=== PATIENT | female | born 1950 | race Caucasian/White ===

== ENCOUNTER 2023-07-09 10:27 | Outpatient (OUT) | payer MEDICARE, SELFPAY ==
[2023-07-09 10:56] LABS: Basophils Percent Auto 0.9 % (0.2-2.0); Eosinophils Absolute Auto 0.1 10^3/uL (0.0-0.7); Eosinophils Percent Auto 2.2 % (0.9-7.0); Hematocrit 40.9 % (36.0-48.0); Hemoglobin 13.4 g/dL (12.0-16.0); Lymphocytes Percent Auto 30.2 % (20.5-60.0); Mean Corpuscular HGB Conc 32.8 g/dL (29.9-35.2); Mean Corpuscular Hemoglobin 28.8 pg (26.7-34.0); Mean Corpuscular Volume 87.8 fL (81.0-99.0); Monocytes Absolute Auto 0.4 10^3/uL (0.3-0.8); Monocytes Percent Auto 12.5 % (1.7-12.0); Neutrophils Absolute Auto 1.7 10^3/uL (1.4-6.5); Neutrophils Percent Auto 54.2 % (43.0-75.0); Platelet Count 234 10^3/uL (150-450); Red Blood Count 4.66 10^6/uL (4.20-5.40); Red Cell Distribution Width 13.9 % (11.0-15.0); White Blood Count 3.2 10^3/uL (4.0-11.0)
[2023-07-09 11:51] LABS: Chloride 105 mmol/L (98-107); Sodium 141 mmol/L (136-145)
[2023-07-09 11:52] LABS: Anion Gap 9.8; Aspartate Amino Transferase 16 U/L (15-37); BUN Creatinine Ratio 23.2; Bilirubin Direct 0.1 mg/dL (0.0-0.2); Bilirubin Total 0.3 mg/dL (0.2-1.0); Calcium 8.7 mg/dL (8.5-10.1); Carbon Dioxide 30.2 mmol/L (21.0-32.0); Estimated GFR (African America >60 (>=60); Estimated GFR (Non-African Ame >60 (>=60); Glucose 89 mg/dL (74-106)
[2023-07-09 11:53] LABS: Alanine Aminotransferase 28 U/L (14-59); Albumin Globulin Ratio 1.1; Albumin Level 3.8 g/dL (3.4-5.0); Alkaline Phosphatase 78 U/L (46-116); Cholesterol 193 mg/dL (<=200); Globulin 3.4 g/dL; Total Protein 7.2 g/dL (6.4-8.2); Triglycerides 53 mg/dL (<=150); VLDL CHOLESTEROL 10.6 mg/dL
[2023-07-09 11:54] LABS: Chol HDL Ratio 4.1; HDL Cholesterol 47 mg/dL (40-60)
== END 2023-07-09 10:28 | disposition home or self-care (01) ==
PROVIDERS: PCP Family Medicine; Visit Provider Family Medicine
DX: Z79.899 Other long term (current) drug therapy (principal); E78.5 Hyperlipidemia, unspecified
CPT/HCPCS: 36415; 80048; 80061; 80076; 85025

== ENCOUNTER 2023-09-13 09:55 | Outpatient (OUT) | payer MEDICARE, SELFPAY ==
--- NOTE | 2023-09-13 09:57 | MM_ITS ---
Patient: DANTE GONZALEZ Exam Date: 09/13/2023 : 1950 Gender:F Ordering : DR ABBEY ALCALA . Admission #: [id number] Family : Order #: [id number] CLICK HERE TO VIEW EXAM RADIOLOGY REPORT PROCEDURE: MM TOMOSYNTHESIS SCREENING BI COMPARISON: MG MAMM SCREEN 3D ZAYRA CAD, 09/07/2021. MG MAMM SCREEN 3D ZAYRA CAD, 09/10/2022. INDICATIONS: Screening Calculator Name NCI Breast Cancer Risk Assessment Tool 5 Year Breast Cancer Risk 1.80% Lifetime Breast Cancer Risk 4.90% Personal Breast Cancer No Personal Ovarian Cancer No Treatments None Family Cancers Mother with non hodgekins lymphoma cancer at age ~80. LOCATION: [facility] BREAST COMPOSITION: Heterogeneously dense,which may obscure small masses. FINDINGS: DIAGNOSTIC CATEGORY 1--NEGATIVE. NO CHANGE FROM COMPARISON ASSESSMENT. Scattered benign-appearing nodules are present. Scattered benign-appearing calcifications are present. Scattered benign-appearing lymph nodes are present. RIGHT BREAST: No significant suspicious finding. LEFT BREAST: No significant suspicious finding. RECOMMENDATIONS: ROUTINE MAMMOGRAM AND CLINICAL EVALUATION IN 12 MONTHS. PLEASE NOTE: A NORMAL MAMMOGRAM DOES NOT EXCLUDE THE POSSIBILITY OF BREAST CANCER. A CLINICALLY SUSPICIOUS PALPABLE LUMP SHOULD BE BIOPSIED. Dictated by: Nader Zendejas MD on 09/13/2023 at 13:23 Approved by: Nader Zendejas MD on 09/13/2023 at 13:24
== END 2023-09-13 09:56 | disposition home or self-care (01) ==
LOC: MAMMO 09:55
PROVIDERS: PCP Family Medicine; Visit Provider Family Medicine
DX: Z12.31 Encounter for screening mammogram for malignant neoplasm of breast (principal); Z80.7 Family history of other malignant neoplasms of lymphoid, hematopoietic and related tissues; Z80.9 Family history of malignant neoplasm, unspecified
CPT/HCPCS: 77063; 77067

== ENCOUNTER 2024-07-24 09:29 | Outpatient (OUT) | payer MEDICARE, SELFPAY ==
--- OUTSIDE RECORDS SUMMARY | 2024-07-21 08:45 | XMS_ITS | CCD ---
Author Organization [facility] Care Team Providers Care Concession Manager Name Role Phone CARI, DR ABBEY Baker Primary Care Unavailable NADERER, DR ABBEY Baker Admitting Unavailable NADERER, DR ABBEY Baker Attending Unavailable NADERER, DR ABBEY Baker Primary Care Unavailable TAMLYN ., ANDRES Admitting Unavailable TAMLYN ., ANDRES Attending Unavailable TAMLYN Nesha, ANDRES Consulting Unavailable INEZ STANLEY Consulting Unavailable RUSTY RICH Consulting Unavailable CARI, DR ABBEY Baker Attending Unavailable CARI, DR ABBEY Baker Primary Care Unavailable CARI, DR ABBEY Baker Admitting Unavailable YAYA, DR ALEXANDER Oneill Consulting Unavailable NADERER, DR ABBEY Baker Consulting Unavailable NADERER, DR ABBEY Baker Primary Care Unavailable PHILLIP, JUAN Admitting Unavailable PHILLIP, JUAN Attending Unavailable PHILLIP, JUAN Consulting Unavailable JEREMÍAS JOSEPH Consulting Unavailable CARI, ABBEY Attending Unavailable MYLENER, ABBEY Attending Unavailable Allergies Allergy Classification Reported Allergen(s) Allergy Type Date of Onset Reaction(s) Facility (1 source) Sulfamethoxazole / Trimethoprim Drug Allergy 3 [facility] Repository (1 source) Sulfonamides (Antibiotic) Drug allergy (disorder) 9 [facility] Repository Problems Active Problems Problem Classification Problem Date Documented Da te Episodic/Chronic Other aftercare (1 source) Other group home (current) drug therapy; Translations: [OTH PENITENTIARY CURRENT DRUG THERAPY] Onset: 03-25-2023 Episodic Other and unspecified benign neoplasm (1 source) Benign neoplasm of sigmoid colon; Translations: [BENIGN NEOPLASM OF SIGMOID COLON] Onset: 03-21-2023 Episodic Other gastrointestinal disorders (4 sources) Constipation, unspecified; Translations: [CONSTIPATION UNSPECIFIED] Onset: 03-24-2023 Episodic Other screening for suspected conditions (not mental disorders or infectious disease) (8 sources) Encounter for screening for malignant neoplasm of colon; Translations: [Encounter for screening mammogram for malignant neoplasm of breast] Onset: 09-10-2022 Episodic Past or Other Problems Problem Classification Problem Date Documented Date Episodic/Chronic Other injuries and conditions due to external causes (4 sources) Unspecified injury of muscle, fascia and tendon of the posterior muscle group at thigh level, right thigh, subsequent encounter; Translations: [UNS INJ MSC FASC POST THIGH RT SUB] Onset: 08-10-2022 Episodic Residual codes; unclassified (1 source) Family history of other malignant neoplasms of lymphoid, hematopoietic and related tissues; Translations: [FAM HX OTH MAL CAPO LYMPH HEMATPOETC] Onset: 09-13-2022 Episodic Results Test Name Value Interpretation Reference Range Facil ity XR ABD FLAT_UPon 03-24-2023 XR ABD FLAT_UP EXAM: XR ABD FLAT_UP HISTORY: Constipation COMPARISON: None. TECHNIQUE: Supine study on 2 films FINDINGS: Prominent stool is noted within the colon. No dilated small bowel loops. No abnormal calcifications. IMPRESSION: Apparent constipation. Electronically authenticated by: Liseth JOSEPH Date: 2023-03-24 00:41 Normal [facility] MAMM SCREEN 3D ZAYRA CADon 09-10-2022 MG MAMM SCREEN 3D ZAYRA CAD Patient: DANTE GONZALEZ Exam Date: 09/10/2022 : 1950 Gender:F Ordering : DR ABBEY ALCALA . Admission #: [id number] Family : Order #: [id number] CLICK HERE TO VIEW EXAM RADIOLOGY REPORT PROCEDURE: MAMMOGRAM SCREENING 3D BILATERAL CAD COMPARISON: MG MAMM SCREEN 3D ZAYRA CAD, 09/07/2021. MG MAMM SCREEN ZAYRA W CAD, 09/05/2020. INDICATIONS: Screening mammography Calculator Name NCI Breast Cancer Risk Assessment Tool 5 Year Breast Cancer Risk 1.70% Lifetime Breast Cancer Risk 5.10% Personal Breast Cancer No Personal Ovarian Cancer No Treatments None Family Cancers Mother with non hodgekins lymphoma cancer at age 80. LOCATION: [facility] BREAST COMPOSITION: Heterogeneously dense,which may obscure small masses. FINDINGS: DIAGNOSTIC CATEGORY 1--NEGATIVE. NO CHANGE FROM COMPARISON ASSESSMENT. Scattered benign-appearing calcifications are present. Scattered benign-appearing lymph nodes are present. RIGHT BREAST: No significant suspicious finding. LEFT BREAST: No significant suspicious finding. RECOMMENDATIONS: ROUTINE MAMMOGRAM AND CLINICAL EVALUATION IN 12 MONTHS. PLEASE NOTE: A NORMAL MAMMOGRAM DOES NOT EXCLUDE THE POSSIBILITY OF BREAST CANCER. A CLINICALLY SUSPICIOUS PALPABLE LUMP SHOULD BE BIOPSIED. Dictated by: Alexander Zendejas MD on 09/10/2022 at 10:16 Approved by: Alexander Zendejas MD on 09/10/2022 at 10:19 Normal [facility] Encounters Encounter Date Encounter Type Care Provider Facility Start: 07-15-2024 End: 07-15-2024 ambulatory ABBEY ALCALA Not Available Start: 02-03-2024 End: 02-03-2024 ambulatory ABBEY ALCALA Not Available Start: 03-24-2023 End: 03-24-[address] ABBEY ALCALA Facility:[facility] Start: 03-15-2023 End: 03-15-[address] ABBEY ALCALA Facility:[facility] Start: 09-10-2022 End: 09-11-[address] ABBEY ALCALA Facility:[facility] Start: 08-10-2022 End: 08-31-[address] ABBEY ALCALA Facility:[facility] Payers Date Payer Category Payer Medicare [id number] 1950 Unknown [id number] 2.16.84 [id number] 1950 Unknown [id number] 2.16.84 [id number] 1950 Unknown [id number] 2.16.84 [id number] 1950 Unknown [id number] 2.16.84 [id number] 1950 Unknown [id number] 2.16.84 [id number] 1950 Unknown [id number] 2.16.84 [id number] Summary Purpose Family History No Family History Records FoundNo Family History Records Found Advance Directives No Advanced Directives Records FoundNo Advanced Directives Records Found Additional Source Comments INFORMATION SOURCE (unrecogn ized section and content) DATE CREATED AUTHOR 03/25/2023 [facility] pital DATE CREATED AUTHOR AUTHOR'S MINO ATABDULAZIZ 07/16/2024 [facility] Special[facility] FOR RECORDS PERTAINING TO PATIENTS WHO ARE OR HAVE BEEN ENROLLED IN A CHEMICAL DEPENDENCY/SUBSTANCEABUSE PROGRAM, SOME INFORMATION MAY BE OMITTED. This clinical summary was aggregated from multiple sources. Caution should be exercised in using it in the provision of clinical care. This summary normalizes information from multiple sources, and as a consequence, information in this document may materially change the coding, format and clinical context of patient data. In addition, data may be omitted in some cases. CLINICAL DECISIONS SHOULD BE BASED ON THE PRIMARY CLINICAL RECORDS. [facility] [employer] provides no warranty or guarantee of the accuracy or completeness of information in this document.
--- OUTSIDE RECORDS SUMMARY | 2024-07-24 09:34 | XMS_ITS | CCD ---
Author Organization [facility] Care Team Providers Care Office Sweeper Name Role Phone CARI, DR ABBEY Baker Primary Care Unavailable NADERER, DR ABBEY Baker Admitting Unavailable NADERER, DR ABBEY Baker Attending Unavailable NADERER, DR ABBEY Baker Primary Care Unavailable TAMLYN ., ANDRES Admitting Unavailable TAMLYN ., ANDRES Attending Unavailable TAMLYN Nesha, ANDRES Consulting Unavailable INEZ STANLEY Consulting Unavailable RUSTY RCIH Consulting Unavailable CARI, DR ABBEY Baker Attending [...] Sulfamethoxazole / Trimethoprim Drug Allergy 3 [facility] Repository (1 source) Sulfonamides (Antibiotic) Drug allergy (disorder) 9 [facility] Repository Problems Active Problems Problem Classification Problem Date Documented Da te Episodic/Chronic Other aftercare (1 source) Other correction (current) drug therapy; Translations: [OTH DETENTION CURRENT DRUG THERAPY] Onset: 03-25-2023 Episodic Other [...] Liseth JOSEPH Date: 2023-03-24 00:41 Normal [facility] MAMM SCREEN 3D ZAYRA CADon 09-10-2022 MG MAMM SCREEN 3D ZAYRA CAD Patient: DANTE GONZALEZ Exam Date: 09/10/2022 : 1950 Gender:F Ordering : DR ABBEY ALCALA . Admission #: [id number] Family : Order #: [id number] CLICK HERE TO VIEW EXAM RADIOLOGY REPORT [...] lymphoma cancer at age 81. LOCATION: [facility] BREAST COMPOSITION: Heterogeneously dense,which may obscure small [...] Zendejas MD on 09/10/2022 at 10:19 Normal [facility] Encounters Encounter Date Encounter Type Care Provider [...] Facility:[facility] Payers Date Payer Category Payer Medicare [id number] 1950 Unknown [id number] 2.16.84 [id number] 1950 Unknown [id number] 2.16.84 [id number] 1950 Unknown [id number] 2.16.84 [id number] 1950 Unknown [id number] 2.16.84 [id number] 1950 Unknown [id number] 2.16.84 [id number] 1950 Unknown [id number] 2.16.84 [id number] Summary Purpose Family History No Family History Records FoundNo Family History Records Found Advance Directives No Advanced Directives Records FoundNo Advanced Directives Records Found Additional Source Comments INFORMATION SOURCE (unrecogn ized section and content) DATE CREATED AUTHOR 03/25/2023 [facility] pital DATE CREATED AUTHOR AUTHOR'S MINO ATABDULAZIZ 07/16/2024 [facility] dical Specialists [facility] FOR RECORDS PERTAINING TO PATIENTS WHO [...] BE BASED ON THE PRIMARY CLINICAL RECORDS. [facility] [employer] provides no warranty or guarantee of the accuracy or completeness of information in this document.
--- NOTE | 2024-07-24 09:38 | XR_ITS ---
[address] [address] Patient Name: DANTE GONZALEZ MRN: [id number] date: 1950 Sex: F Assigned Patient Location: [facility] Current Patient Location: Accession/Order Number: [id number] Exam Date: 07/24/2024 09:50 Report Date: 07/25/2024 06:18 At the request of: ABBEY ALCALA Procedure: XR DEXA axial skeleton EXAMINATION: XR DEXA axial skeleton HISTORY: OSTEOPENIA OF NECK AND RIGHT FEMUR M85.851 COMPARISON: DEXA bone densitometry 09/07/2021 TECHNIQUE: Dual-energy X-ray absorptiometry (DXA) was performed. FINDINGS: SPINE ANALYSIS: Average bone mineral density is 1.333 g/cm2. T-score (standard deviation relative to young adult mean): 1.3 . +1.8% change since prior study. HIP ANALYSIS: Lowest bone mineral density is within the left femoral neck, 0.853 g/cm2. T-score (standard deviation relative to young adult mean): -1.3 . -2.1% change since prior study. XR/XR DEXA axial skeleton IMPRESSION: World Health Organization Classification: Osteopenia - Moderate Fracture Risk FRAX: Cannot calculate. Pharmacologic treatment recommendations * No uniform recommendation applies to all patients. Management plans must be individualized. * Consider initiating pharmacologic treatment in postmenopausal women and men >= 50 years of age who have the following: Primary fracture prevention: * T-score <= - 2.5 at the femoral neck, total hip, lumbar spine, 33% radius (some uncertainty with existing data) by DXA. * Low bone mass (osteopenia: T-score between - 1.0 and - 2.5) at the femoral neck or total hip by DXA with a 10-year hip fracture risk >= 3% or a 10-year major osteoporosis-related fracture risk >= 20% (i.e., clinical vertebral, hip, forearm, or proximal humerus) based on the [place]-adapted FRAXregistered model. Secondary fracture prevention: * Fracture of the hip or vertebra regardless of BMD [4, 5]. * Fracture of proximal humerus, pelvis, or distal forearm in persons with low bone mass (osteopenia: T-score between - 1.0 and - 2.5). The decision to treat should be individualized in persons with a fracture of the proximal humerus, pelvis, or distal forearm who do not have osteopenia or low BMD [12, 13]. Becky MS, Roberto SL, Grayson KL, Denton EM, Sabrina KG, AJ, John ES. The clinician's guide to prevention and treatment of osteoporosis. Osteoporos Int. 2021;33(10):3595-6872. doi: 10.1007/c28495-739-74548-s. Epub 2021Mar 08. Erratum in: Osteoporos Int. 2021Jun 07;: PMID: [id number]; PMCID: [id number]. Electronically authenticated by: LISA ARCHER Date: 07/25/2024 06:18
== END 2024-07-24 09:30 | disposition home or self-care (01) ==
LOC: RAD 09:30
PROVIDERS: PCP Family Medicine; Visit Provider Family Medicine
DX: M85.851 Other specified disorders of bone density and structure, right thigh (principal)
CPT/HCPCS: 77080

== ENCOUNTER 2024-09-14 08:17 | Outpatient (OUT) | payer MEDICARE, SELFPAY ==
--- NOTE | 2024-09-14 08:22 | MM_ITS ---
Patient Name: DANTE GONZALEZ MR#: [id number] : 1950 Exam Date: 09/14/2024 Ordering Doctor: DR Pete Orantes . RADIOLOGY REPORT PROCEDURE: MM TOMOSYNTHESIS SCREENING BI COMPARISON: MM TOMOSYNTHESIS SCREENING BI, 09/13/2023. MG MAMM SCREEN 3D ZAYRA CAD, 09/10/2022. INDICATIONS: Screening Calculator Name NCI Breast Cancer Risk Assessment Tool 5 Year Breast Cancer Risk 1.80% Lifetime Breast Cancer Risk 4.60% Personal Breast Cancer No Personal Ovarian Cancer No Treatments None Family Cancers Mother with non hodgekins lymphoma cancer at age ~80. LOCATION: [facility] BREAST COMPOSITION: The breasts are heterogeneously dense,which may obscure small masses. FINDINGS: DIAGNOSTIC CATEGORY 2--BENIGN FINDING. NO CHANGE FROM COMPARISON. Scattered benign-appearing calcifications are present. Scattered benign-appearing lymph nodes are present. RIGHT BREAST: No significant suspicious finding. LEFT BREAST: No significant suspicious finding. RECOMMENDATIONS: ROUTINE MAMMOGRAM AND CLINICAL EVALUATION IN 12 MONTHS. PLEASE NOTE: A NORMAL MAMMOGRAM DOES NOT EXCLUDE THE POSSIBILITY OF BREAST CANCER. A CLINICALLY SUSPICIOUS PALPABLE LUMP SHOULD BE BIOPSIED. Dictated by: Nader Zendejas MD on 09/14/2024 at 11:20 Approved by: Nader Zendejas MD on 09/14/2024 at 11:22
== END 2024-09-14 08:18 | disposition home or self-care (01) ==
LOC: MAMMO 08:17
PROVIDERS: PCP Family Medicine; Visit Provider Family Medicine
DX: Z12.31 Encounter for screening mammogram for malignant neoplasm of breast (principal); Z80.7 Family history of other malignant neoplasms of lymphoid, hematopoietic and related tissues
CPT/HCPCS: 77063; 77067

== ENCOUNTER 2024-12-09 11:32 | Outpatient (OUT) | payer MEDICARE, SELFPAY ==
--- OUTSIDE RECORDS SUMMARY | 2024-12-09 11:37 | XMS_ITS | CCD ---
Author Organization [facility] Care Team Providers Care Apple Checker Name Role Phone DR PETE ALCALA Primary Care Unavailable CARI, DR PETE Baker Admitting Unavailable CARI, DR PETE Baker Attending Unavailable CARI, DR PETE Baker Primary Care Unavailable TAMANDRES WALKER Admitting Unavailable TAMLYN Nesha, ANDRES Attending Unavailable TAMFELIXN Nesha, ANDRES Consulting Unavailable INEZ STANLEY Consulting Unavailable RUSTY RICH Consulting Unavailable CARI, DR PETE Baker Attending Unavailable CARI, DR PETE Baker Primary Care Unavailable CARI, DR PETE Baker Admitting Unavailable YAYA, DR ALEXANDER Oneill Consulting Unavailable NADERER, DR PETE Baker Consulting Unavailable NADERER, DR PETE Baker Primary Care Unavailable JUAN FISHER Admitting Unavailable JUAN FISHER Attending Unavailable PHILLIP, JUAN Consulting Unavailable JEREMÍAS JOSEPH Consulting Unavailable Pete Alcala MD Primary Care Provider [phone] PETE ALCALA Attending Unavailable CARI, PETE Attending Unavailable CASE MENENDEZ Attending Unavailable CASE MENENDEZ Referring Unavailable CASE MENENDEZ Attending Unavailable CASE MENENDEZ Referring Unavailable CASE MENENDEZ Attending Unavailable CASE MENENDEZ Referring Unavailable PETE ALCALA Attending Unavailable Allergies Allergy Classification Reported Allergen(s) Allergy Type Date of Onset Reaction(s) Facility (1 source) Sulfamethoxazole / Trimethoprim Drug Allergy 3 [facility] Repository (1 source) Sulfonamides (Antibiotic) Drug allergy (disorder) 9 [facility] Repository (15 sources) Sulfamethoxazole / Trimethoprim Drug Allergy 4 [facility] Healthcare (15 sources) Sulfonamides (Antibiotic) Drug Allergy 3 Other [facility] Healthcare Medications Current Medications Medication Drug Class(es) Dates Sig (Normalized) Sig (Original) ALPRAZolam 0.25 mg oral tablet (15 sources) Benzodiazepine take 1 tablet by mouth three times daily as needed for anxiety ALPRAZolam (Xanax) 0.25 MG tablet Take 0.25 mg by mouth 3 (three) times a day as needed for anxiety Active ascorbic acid 1000 mg oral tablet (15 sources) Vitamin C take 1 tablet by mouth in the morning Ascorbic Acid (vitamin C) 1000 MG tablet Take 1,000 mg by mouth in the morning. Active calcitriol 0.64545 mg oral capsule (11 sources) Vitamin D3 Analog take 1 capsule by mouth once daily calcitriol (Rocaltrol) 0.25 MCG capsule Take 0.25 mcg by mouth Daily Active latanoprost 0.05 mg/ml ophthalmic solution (15 sources) Prostaglandin Analog Start: 3 take 1 drop(s) into the eye(s) once daily in the evening latanoprost (Xalatan) 0.005 % ophthalmic solution INSTILL 1 DROP INTO BOTH EYES EVERY EVENING DIRECTED 06/05/2023 Active methylPREDNISolone (9 sources) Corticosteroid Start: End: methylPREDNISolone (Medrol Dospak) 4 MG tablets Indications: Acute pain of right shoulder Follow schedule on package instructions 21 tablet 09/15/2024 11/19/2024 Discontinued Start: 09-15-2024 methylPREDNISo lone (Medrol Dospak) 4 MG tablets Indications: Acute pain of right shoulder Follow schedule on package instructions 21 tablet 09/15/2024 Active Start: 08-28-2024 End: 08-28-2024 methylPREDNISolone acetate ( DEPO-Medrol) injection 40 mg Start: 08-28-2024 End: 08-28-2024 40 mg, Intra-articular, Once PRN Procedure, Starting on Sat08/28/24 at 0931, For 1 dose Misc Natural Products (Glucosamine Chond Complex/MSM) tablet (15 sources) Misc Natural Pro ducts (Glucosamine Chond Complex/MSM) tablet Orally Active Multiple Vitamins-Minerals (MULTIVITAMIN WOMEN 50+ PO) (15 sources) Multiple Vitamins-Minerals (MULTIVITAMIN WOMEN 50+ PO) Take by mouth Active predniSONE 20 mg oral tablet (2 sources) Start: 08-07-2024 End: 08-16-2024 take 2 tablets by mouth once daily, then take 1 tablet by mouth once daily at mealtime predniSONE (Deltasone) 20 MG tablet Indications: Left leg pain Take 2 tablets (40 mg) by mouth Daily for 5 days, THEN 1 tablet (20 mg) Daily for 5 days. Take with food. 15 tablet 08/07/2024 08/16/2024 Active Problems Active Problems Problem Classification Problem Date Documented Da te Episodic/Chronic Anxiety disorders (2 sources) Anxiety; Translations: [Anxiety disorder, unspecified] Onset: 5 11-19-2024 Chronic Conduction disorders (17 sources) First degree atrioventricular block; Translations: [Atrioventricular block, first degree] Onset: 4 02-03-2024 Chronic Disorders of lipid metabolism (17 sources) Dyslipidemia; Translations: [Hyperlipidemia, unspecified] Onset: 4 02-03-2024 Chronic Joint disorders and dislocations; trauma-related (4 sources) Chondromalacia of left patella; Translations: [Chondromalacia patellae, left knee] 08-28-2024 Chronic Other aftercare (1 source) Other emt intermediate (current) drug therapy; Translations: [OTH ALF CURRENT DRUG THERAPY] Onset: 3 Episodic Other and unspecified benign neoplasm (1 source) Benign neoplasm of sigmoid colon; Translations: [BENIGN NEOPLASM OF SIGMOID COLON] Onset: 3 Episodic Other connective tissue disease (2 sources) Pain in right arm; Translations: [Pain in right arm] 09-14-2024 Episodic Other connective tissue disease (2 sources) Pain in left lower limb; Translations: [Pain in left leg] 08-06-2024 Episodic Other gastrointestinal disorders (4 sources) Constipation, unspecified; Translations: [CONSTIPATION UNSPECIFIED] Onset: 3 Episodic Other non-traumatic joint disorders (2 sources) Pain in left knee; Translations: [Pain in joint, lower leg] 08-28-2024 Episodic Other non-traumatic joint disorders (2 sources) Disorder of shoulder; Translations: [Other specified joint disorders, right shoulder] 09-15-2024 Episodic Other non-traumatic joint disorders (2 sources) Pain in right shoulder; Translations: [Pain in joint, shoulder region] 09-15-2024 Episodic Other screening for suspected conditions (not mental disorders or infectious disease) (8 sources) Encounter for screening for malignant neoplasm of colon; Translations: [Encounter for screening mammogram for malignant neoplasm of breast] Onset: 2 Episodic Residual codes; unclassified (6 sources) Amnesia; Translations: [Other amnesia] Onset: 5 11-19-2024 Episodic Spondylosis; intervertebral disc disorders; other back problems (17 sources) Degeneration of cervical intervertebral disc; Translations: [Other cervical disc degeneration, unspecified cervical region] Onset: 02-03-2024 Chronic Past or Other Problems Problem Classification Problem Date Documented Da te Episodic/Chronic Malaise and fatigue (16 sources) Fatigue; Translations: [Other fatigue] Onset: 07-15-2024 Resolved: 11-19-2024 07-15-2024 Episodic Miscellaneous mental health disorders (17 sources) Insomnia disorder related to another mental disorder; Translations: [Insomnia due to other mental disorder] Onset: 02-03-2024 Resolved: 11-19-2024 02-03-2024 Chronic Mood disorders (2 sources) Mood disorders Onset: 11-19-2024 11-19-2024 Other aftercare (12 sources) Long-term current use of drug therapy; Translations: [Other emt intermediate (current) drug therapy] Onset: 07-15-2024 07-15-2024 Episodic Other aftercare (4 sources) Patient encounter status; Translations: [Other detention (current) drug therapy] Onset: 07-15-2024 07-15-2024 Episodic Other bone disease and musculoskeletal deformities (17 sources) Osteopenia; Translations: [Other specified disorders of bone density and structure, right thigh] Onset: 02-03-2024 02-03-2024 Episodic Other injuries and conditions due to external causes (4 sources) Unspecified injury of muscle, fascia and tendon of the posterior muscle group at thigh level, right thigh, subsequent encounter; Translations: [UNS INJ MSC FASC POST THIGH RT SUB] Onset: 08-10-2022 Episodic Other upper respiratory disease (15 sources) Allergic rhinitis due to pollen; Translations: [Allergic rhinitis due to pollen] Onset: 02-03-2024 Resolved: 11-19-2024 02-03-2024 Chronic Residual codes; unclassified (1 source) Family history of other malignant neoplasms of lymphoid, hematopoietic and related tissues; Translations: [FAM HX OTH MAL CAPO LYMPH HEMATPOETC] Onset: 09-13-2022 Episodic Results Test Name Value Interpretation Reference Range Facility XR Shoulder - right 2 Viewso n 09-15-2024 Imaging Result: AP and Scapular Y right shoulder: No acute fracture or dislocation Visualized lung diaz unremarkable. Moderate degenerative changes AC joint shoulder Impression: Moderate AC joint arthritis with no acute bony process right shoulder [facility] Study observation (narrative) [facility] No Panel Informationon 08-28 JONATHAN Roche 08/28/2024 9:36 AM L Inj/Asp: L knee on 08/28/2024 9:31 AM Indications: pain Details: 22 G needle, anterolateral approach Medications: 40 mg methylPREDNISolone acetate 40 MG/ML Outcome: tolerated well, no immediate complications UTILIZING ASEPTIC TECHNIQUE PT GIVEN INJECTION IN LEFT KNEE, NEUROVASC INTACT S/P INJ, TOLERATED WELL Given by Student Keith GREWAL under my direct supervision. Procedure, treatment alternatives, risks and benefits explained, specific risks discussed. Consent was given by the patient. Patient was prepped and draped in the usual sterile fashion. [facility] X[facility] Knee - left 1 or 2 Viewso n 08-28-2024 Imaging Result: AP AND LATERAL STANDING LEFT KNEE: No acute fracture. Mild to moderate patellafemoral arthritis Narrowing medial joint line with subchondral scleroris.. No significant joint effusion or soft tissue findings Slight varus alignment Impression: Mild degenerative changes left knee [facility] Rad[facility] Study observation (narrative) [facility] XR ABD FLAT_UPon 03-24-2023 XR ABD FLAT_UP EXAM: XR ABD FLAT_UP HISTORY: Constipation COMPARISON: None. TECHNIQUE: Supine study on 2 films FINDINGS: Prominent stool is noted within the colon. No dilated small bowel loops. No abnormal calcifications. IMPRESSION: Apparent constipation. Electronically authenticated by: Liseth JOSEPH Date: 2023-03-24 00:41 Normal [facility] MG MAMM SCREEN 3D ZAYRA CADon 09-10-2022 MG MAMM SCREEN 3D ZAYRA CAD Patient: CHRISTIN CARRILLO Exam Date: 09/10/2022 : 1950 Gender:F Ordering : DR PETE ALCALA . Admission #: [id number] Family : Order #: [id number] CLICK HERE TO VIEW EXAM RADIOLOGY REPORT [...] lymphoma cancer at age 81. LOCATION: [facility] BREAST COMPOSITION: Heterogeneously dense,which may obscure small [...] Zendejas MD on 09/10/2022 at 10:19 Normal [facility] Vital Signs Date Time Vital Sign Value Performing Clinician Faci lity 11-19-2024 07:00-0500 Body mass index (BMI) [Ratio] 25.02 kg/m2 Pete Alcala MD Work Phone: [facility] 11-19-2024 07:00-0500 Body temperature 97 [degF] Pete Alcala MD Work Phone: [facility] 11-19-2024 07:00-0500 Body weight 75.75 kg Pete Alcala MD Work Phone: [facility] 11-19-2024 07:00-0500 Diastolic blood pressure 68 mm[Hg] Pete Alcala MD Work Phone: [facility] 11-19-2024 07:00-0500 Heart rate 74 /min Pete Alcala MD Work Phone: [facility] 11-19-2024 07:00-0500 SaO2% (BldA) [Mass fraction] 97 % Pete Alcala MD Work Phone: [facility] 11-19-2024 07:00-0500 Systolic blood pressure 118 mm[Hg] Pete Alcala MD Work Phone: [facility] 08-07-2024 10:55-0400 Body height 174 cm Case CASTILLO Work Phone: [facility] 08-07-2024 10:55-0400 Body mass index (BMI) [Ratio] 23.97 kg/m2 Case CASTILLO Work Phone: [facility] 08-07-2024 10:55-0400 Body weight 72.58 kg Case Menendez PA Work Phone: [facility] 07-15-2024 08:05-0400 Body height 172.7 cm Pete Alcala MD Work Phone: [facility] 07-15-2024 08:05-0400 Body mass index (BMI) [Ratio] 25.54 kg/m2 Pete Alcala MD Work Phone: [facility] 07-15-2024 08:05-0400 Body temperature 97.3 [degF] Pete Alcala MD Work Phone: [facility] 07-15-2024 08:05-0400 Body weight 76.2 kg Pete Alcala MD Work Phone: [facility] 07-15-2024 08:05-0400 Diastolic blood pressure 40 mm[Hg] Pete Alcala MD Work Phone: [facility] 07-15-2024 08:05-0400 Heart rate 75 /min Pete Alcala MD Work Phone: [facility] 07-15-2024 08:05-0400 Respiratory rate 22 /min Pete Alcala MD Work Phone: [facility] 07-15-2024 08:05-0400 SaO2% (BldA) [Mass fraction] 98 % Pete Alcala MD Work Phone: [facility] 07-15-2024 08:05-0400 Systolic blood pressure 120 mm[Hg] Pete Alcala MD Work Phone: [facility] Encounters Encounter Date Encounter Type Care Provider Facility Start: 11-19-2024 End: 11-19-2024 Bamboo flowsheet Pete Alcala MD Work Phone: [facility] Start: 11-19-2024 End: 11-19-2024 Bamboo flowsheet Pete Alcala MD Work Phone: [facility] Start: 11-19-2024 End: 11-19-2024 Office outpatient visit 15 minutes Pete Alcala MD Work Phone: [facility] Comment on above: Medicare annual well ness visit, subsequent (Primary Dx); Memory loss Start: 11-19-2024 End: 11-19-2024 Patient encounter procedure Pete Alclaa MD Work Phone: [facility] Start: 11-19-2024 End: 11-19-2024 ambulatory PETE ALCALA Not Available Start: 09-15-2024 End: 09-15-2024 Bamboo flowsheet Case CASTILLO Work Phone: [facility] Start: 09-15-2024 End: 09-15-2024 Bamboo flowsheet Case CASTILLO Work Phone: [facility] Start: 09-15-2024 End: 09-15-2024 Office outpatient visit 25 minutes Case CASTILLO Work Phone: [facility] Comment on above: Right arm pain (Prim rajni Dx); Impingement of right shoulder; Acute pain of right shoulder Start: 09-15-2024 End: 09-15-2024 ambulatory CASE MENENDEZ Not Available Start: 08-28-2024 End: 08-28-2024 Bamboo flowsheet Case CASTILLO Work Phone: [facility] Start: 08-28-2024 End: 08-28-2024 Bamboo flowsheet Case CASTILLO Work Phone: [facility] Start: 08-28-2024 End: 08-28-2024 Office outpatient visit 25 minutes Case CASTILLO Work Phone: [facility] Comment on above: Acute pain of left k nee (Primary Dx); Chondromalacia, patella, left Start: 08-28-2024 End: 08-28-2024 ambulatory CASE MENENDEZ Not Available Start: 08-07-2024 End: 08-07-2024 Bamboo flowsheet Case Menendez PA Work Phone: [facility] Start: 08-07-2024 End: 08-07-2024 Bamboo flowsheet Case Menendez PA Work Phone: [facility] Start: 08-07-2024 End: 08-07-2024 Office outpatient visit 25 minutes Case CASTILLO Work Phone: [facility] Comment on above: Left leg pain (Prima ry Dx) Start: 08-07-2024 End: 08-07-2024 ambulatory CASE MENENDEZ Not Available Start: 07-15-2024 End: 07-15-2024 Bamboo flowsheet Pete Alcala MD Work Phone: [facility] Start: 07-15-2024 End: 07-15-2024 Bamboo flowsheet Pete Alcala MD Work Phone: [facility] Start: 07-15-2024 End: 07-15-2024 Office outpatient visit 15 minutes Pete Alcala MD Work Phone: [facility] Comment on above: Insomnia related to another mental disorder (Primary Dx); First degree atrioventricular block; DDD (degenerative disc disease), cervical; Dyslipidemia (CMS/HCC); Encounter for long-term current use of medication; Other fatigue; Osteopenia of neck of right femur Start: 07-15-2024 End: 07-15-2024 ambulatory PETE ALCALA Not Available Start: 02-03-2024 End: 02-03-2024 ambulatory PETE ALCALA Not Available Start: 03-24-2023 End: 03-24-[address] PETE ALCALA Facility:[facility] Start: 03-15-2023 End: 03-15-[address] PETE ALCALA Facility:[facility] Start: 09-10-2022 End: 09-11-[address] PETE ALCALA Facility:[facility] Start: 08-10-2022 End: 08-31-[address] PETE ALCALA Facility:[facility] Procedures Date Procedure Procedure Detail Performing Clinician Start: 09-15-2024 Radex shoulder compl ete minimum 2 views Case CASTILLO Work Phone: Start: 09-14-2024 Mammography Case CASTILLO Work Phone: Start: 08-28-2024 Arthrocentesis aspir &/inj major jt/bursa w/o us Case CASTILLO Work Phone: Start: 08-28-2024 Radiologic examinati on knee 1/2 views Case CASTILLO Work Phone: Start: 09-13-2023 Mammography Pete mehta MD Work Phone: Start: 03-15-2023 Colonoscopy Pete mehta MD Work Phone: Plan of Treatment Date Care Activity Detail Author Start: 03-15-2033 Screening for malign ant neoplasm of colon [facility] Start: 09-14-2025 Screening for malign ant neoplasm of breast Mammogram [facility] Start: 05-20-2025 End: 05-20-2025 Patient encounter procedure 05/20/2025 10:00 AM EDT Office Visit [facility] [address] [place] [phone] Pete Alcala MD [address] [place] [phone] [facility] Start: 11-19-2024 End: 11-19-2024 Patient encounter procedure 11/19/2024 10:45 AM EST Office Visit [facility] [address] [place] [phone] Pete Alcala MD [address] [place] [phone] Arrived [facility] Comment on above: Arrived Start: 10-14-2024 End: 10-14-2024 Patient encounter procedure 10/14/2024 9:30 AM EST Office Visit [facility] [address] [place] [address] Pete Alcala MD [address] [place] [phone] [facility] Start: 09-15-2024 End: 09-15-2024 Patient encounter procedure 09/15/2024 1:15 PM EST Office Visit [facility] [address] [place] [phone] Case Menendez PA [address] [facility] [address] [place] [address] Right arm pain (Primary Dx) [facility] Comment on above: Right arm pain (Prim rajni Dx) Start: 09-13-2024 Screening for malign ant neoplasm of breast Mammogram [facility] Start: 08-28-2024 End: 08-28-2024 Patient encounter procedure [facility] Comment on above: Acute hip pain, left (Primary Dx) Start: 08-07-2024 End: 08-07-2024 Patient encounter procedure 08/07/2024 10:45 AM EDT Office Visit [facility] [address] [place] [address] Case Menendez PA [address] [facility] [address] [place] [address] Left leg pain (Primary Dx) [facility] Comment on above: Left leg pain (Prima ry Dx) Start: 07-15-2024 End: 07-15-2025 Basic metabolic 1998 panel - Serum or Plasma Basic metabolic panel Lab Routine Encounter for long-term current use of medication Expected: 07/15/2024 (Approximate), Expires: 07/15/2025 [facility] Work Phone: Comment on above: Expected: 07/15/2024 (Approximate), Expires: 07/15/2025 Start: 07-15-2024 End: 07-15-2025 CBC W Auto Differential panel - Blood CBC and differential Lab Routine Encounter for long-term current use of medication Expected: 07/15/2024 (Approximate), Expires: 07/15/2025 [facility] Comment on above: Expected: 07/15/2024 (Approximate), Expires: 07/15/2025 Start: 07-15-2024 End: 07-15-2025 DXA Skeletal system Views for bone density DEXA bone density Imaging Routine Osteopenia of neck of right femur Expected: 07/15/2024, Expires: 07/15/2025 [facility] Comment on above: Expected: 07/15/2024 , Expires: 07/15/2025 Start: 07-15-2024 End: 07-15-2025 Hepatic function 2000 panel - Serum or Plasma Hepatic function panel Lab Routine Encounter for long-term current use of medication Expected: 07/15/2024 (Approximate), Expires: 07/15/2025 [facility] Comment on above: Expected: 07/15/2024 (Approximate), Expires: 07/15/2025 Start: 07-15-2024 End: 07-15-2025 Lipid 1996 panel - Serum or Plasma Lipid panel Lab Routine Dyslipidemia (CMS/HCC) Expected: 07/15/2024 (Approximate), Expires: 07/15/2025 [facility] Comment on above: Expected: 07/15/2024 (Approximate), Expires: 07/15/2025 Start: 07-15-2024 End: 07-15-2025 Thyrotropin [Units/volume] in Serum or Plasma TSH Lab Routine Other fatigue Expected: 07/15/2024 (Approximate), Expires: 07/15/2025 [facility] Comment on above: Expected: 07/15/2024 (Approximate), Expires: 07/15/2025 Start: 07-15-2024 End: 07-15-2024 Patient encounter procedure 07/15/2024 8:00 AM EDT Office Visit [facility] [address] [place] [phone] Pete Alcala MD [address] [place] [phone] Arrived [facility] Comment on above: Arrived Start: 07-12-2024 Influenza vaccination Influenza Vacc ine (#1) [facility] Start: 03-15-2024 Medicare Annual Wellness (AWV) Medicare Annual Wellness (AWV) [facility] Start: 1950 Screening for malign ant neoplasm of colon [facility] XR Hip - left 3 Views XR hip lef t 2 or 3 views Imaging Routine Left leg pain 08/07/2024 11:00 AM EDT [facility] Work Phone: Immunizations Immunization Date Immunization Notes Care Provider Fa cility 06-26-2023 influenza virus vacc ine, unspecified formulation Pete Alcala MD Work Phone: [facility] Payers Date Payer Category Payer Medicare [id number] 1958 Medicare [id number] 1950 Unknown [id number] 2.16.84 [id number] 1950 Unknown [id number] 2.16.84 [id number] 1950 Unknown [id number] 2.16.84 [id number] 1950 Unknown [id number] 2.16.84 [id number] 1950 Unknown [id number] 2.16.84 [id number] 1950 Unknown [id number] 2.16.84 [id number] 1950 Unknown [id number] 2.16.84 0.1.654545.3.579.2.9 1950 Unknown [id number] 2.16.84 [id number] 1950 Unknown [id number] 2.16.84 [id number] 1950 Unknown [id number] 2.16.84 0.1.930427.3.579.2.9 1950 Unknown [id number] 2.16.84 0.1.545045.3.579.2.9 1950 Unknown [id number] 2.16.84 0.1.446742.3.579.2.9 1950 Unknown [id number] 2.16.84 [id number] Social History Date Type Detail Facility Start: 02-03-[address] [facility] Never smoked tobacco [facility] Start: 02-03-2024 Tobacco use and exposure Smokeless t obacco non-user [facility] Start: 08-07-2024 End: 11-19-2024 Alcoholic beverage intake Lifetime non-drinker (finding) [facility] Start: 08-07-2024 End: 11-19-2024 History of Social function [facility] Start: 08-07-2024 End: 11-19-2024 Tobacco use panel [facility] Start: 1950 Sex assigned at Female [facility] Start: 07-22-2023 Gender identity Identifies as female gender (finding) [facility] Start: 07-22-2023 Sexual orientation Heterosexual (fin ding) [facility] History of Present illness Narrative 11-19-2024 Pete Alcala MD - 11/19/2024 11:29 AM Nabil Alcala MD - 11/19/2024 11:29 AM Nabil Alcala MD - 11/19/2024 10:45 AM EST Note Date & Type Note Facility 11-19-2024 History of Presen t illness Narrative Associated Problem(s): Memory loss Recently with increased forgetfulness and mom had dementia. Refer to neurology for evaluation. Associated Problem(s): Medicare annual wellness visit, subsequent Due for labs. Discussed proper diet and regular aerobic exercise. Need aerobic exercise 5-6 days a week for 30 minutes at a time. Smaller portions and limit total calories. Colonoscopy every 10 years. Tetanus every 10 years. Advised not to smoke. Images from the original note were not included. Subjective Patient ID: Christin Carrillo is a 73 y.o. female who presents for No chief complaint on file.. Presents for medicare annual wellness visit. Weight unchanged over the past year. Active and goes to exercise class few days a week. Rides bike and walks. Tries to watch diet and eat healthy. Increased fruits and vegetables. Smaller portions and limits snacking. Tries to limit total daily calories. Due for labs. Concerned about memory. Notice increased forgetfulness and misplacing things. Not organized. 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 Recently had episode where drove from [place] to [place] and had hard time finding tenriism. At one point during performance was supposed to go down front for [place]omble performance but forgot to go down. Doesn't remember most of concert. Family and friends concerned. Patient worried about memory loss because mom had dementia. Review of Systems Respiratory: Negative for cough, shortness of breath and wheezing. Cardiovascular: Negative for chest pain and palpitations. Gastrointestinal: Negative for abdominal pain, diarrhea, nausea and vomiting. Genitourinary: Negative for dysuria. Objective Physical Exam Constitutional: General: She is not in acute distress. Appearance: Normal appearance. HENT: Head: Normocephalic. Right Ear: Tympanic membrane normal. Left Ear: Tympanic membrane normal. Eyes: Extraocular Movements: Extraocular movements intact. Pupils: Pupils are equal, round, and reactive to light. Cardiovascular: Rate and Rhythm: Normal rate and regular rhythm. Heart sounds: No murmur heard. No friction rub. No gallop. Pulmonary: Effort: Pulmonary effort is normal. Breath sounds: Normal breath sounds. No wheezing, rhonchi or rales. Abdominal: General: Bowel sounds are normal. There is no distension. Palpations: Abdomen is soft. Tenderness: There is no abdominal tenderness. There is no guarding or rebound. Musculoskeletal: General: No swelling or tenderness. Cervical back: Neck supple. Right lower leg: No edema. Left lower leg: No edema. Skin: Findings: No erythema or rash. Neurological: General: No focal deficit present. Mental Status: She is alert and oriented to person, place, and time. Cranial Nerves: No cranial nerve deficit. Motor: No weakness. Gait: Gait normal. Assessment/Plan Problem List Items Addressed This Visit Medicare annual wellness visit, subsequent - Primary Due for labs. Discussed proper diet and regular aerobic exercise. Need aerobic exercise 5-6 days a week for 30 minutes at a time. Smaller portions and limit total calories. Colonoscopy every 10 years. Tetanus every 10 years. Advised not to smoke. Memory loss Recently with increased forgetfulness and mom had dementia. Refer to neurology for evaluation. Relevant Orders Ambulatory referral to Neurology documented in this encounter [facility] History of Present illness Narrative 09-15-2024 JONATHAN Roche - 09/15/2024 1:15 PM EST Note Date & Type Note Facility 09-15-2024 History of Presen t illness Narrative Images from the original note were not included. HISTORY OF PRESENT ILLNESS: EST PT Christin Carrillo is an 73 y.o. @ female. EST PT WITH NEW C/O RT SHOULDER PAIN ~3WKS- NOTICED PAIN AFTER DOING SOME YARD WORK XRAY RT SHOULDER TODAY EPIC 09/15/24 C/O PAIN UPPER ARM- C/O ACHINESS- ENTIRE ARM CAN ACHE- DIFFICULTY PULLING UP PANTS- DENIES WEAKNESS-SOME DIFFICULTY REACHING BEHIND BACK-+HEAT-+IBUPROFEN ALLERGIES: Allergies Allergen Reactions Bactrim [Sulfamethoxazole-Trimethoprim] Myalgia, lightheaded Sulfa Antibiotics Other HOME MEDICATIONS: Current Outpatient Medications Medication Instructions ALPRAZolam (XANAX) 0.25 mg, Oral, 3 times daily PRN calcitriol (ROCALTROL) 0.25 mcg, Oral, Daily latanoprost (Xalatan) 0.005 % ophthalmic solution INSTILL 1 DROP INTO BOTH EYES EVERY EVENING DIRECTED methylPREDNISolone (Medrol Dospak) 4 MG tablets Follow schedule on package instructions Misc Natural Products (Glucosamine Chond Complex/MSM) tablet Orally Multiple Vitamins-Minerals (MULTIVITAMIN WOMEN 50+ PO) Oral vitamin C 1,000 mg, Oral, Daily PHYSICAL EXAM: Shoulder Musculoskeletal Exam Inspection Right Right shoulder inspection is normal. Ecchymosis: none Peripheral edema: none Atrophy: none Masses: none Palpation Right Crepitus: no crepitus Increased warmth: none Tenderness: present Anterior shoulder: mild AC joint: mild Inferior pole of scapula: none Bicipital groove: mild Proximal biceps: mild Lateral arm: mild Range of Motion Right Right shoulder range of motion is normal. Active ROM: pain. Passive ROM: pain. Right shoulder active abduction: + pain passing 90 degrees. Strength Right External rotation: 5/5. Internal rotation: 5/5. Abduction: 5/5. Biceps: 5/5. Triceps: 5/5. Neurovascular Right Radial pulse: normal and 2+ Capillary refill: <3 sec Axillary nerve sensory distribution: normal Scapula Right Right shoulder scapula is normal. Position: normal Winging: none Special Tests Right Rotator Cuff Signs Neer's test: positive Oneill test: positive Painful arc test: positive Biceps/cedric Signs Speed's test: negative General Constitutional: appears stated age Neurological: alert and oriented x3 Vitals: There is no height or weight on file to calculate BMI. Tobacco Use: Low Risk (09/15/2024) Patient History Smoking Tobacco Use: Never Smokeless Tobacco Use: Never Passive Exposure: Not on file Alcohol Use: Not on file IMAGING: XR shoulder 2+ views right Imaging Result: AP and Scapular Y right shoulder: No acute fracture or dislocation Visualized lung diaz unremarkable. Moderate degenerative changes AC joint shoulder Impression: Moderate AC joint arthritis with no acute bony process right shoulder Procedures Orders Placed This Encounter Procedures XR shoulder 2+ views right Order Specific Question: Reason for exam: Answer: PAIN ASSESSMENT: ICD-10-CM 1. Right arm pain M79.601 XR shoulder 2+ views right 2. Impingement of right shoulder M25.811 3. Acute pain of right shoulder M25.511 methylPREDNISolone (Medrol Dospak) 4 MG tablets PLAN: Xray discussed at bedside. Inferior spurring AC joint predisposed to impingement. Pt did a lot of trimming with pain following, but not during,, recommend ICE, MDP with risk and benefits discussed, follow up prn with activity modification, consider SA injection if symptoms persist. Pt thankful. Questions answered in laymen terms at the bedside. The diagnosis, home exercise plan and any ongoing restrictions/ recommendations reviewed. If unable to be reached in office, I recommend evaluation at nearest Emergency Room if any symptoms worsened or new symptoms develop for requiring urgent evaluation. documented in this encounter [facility] History of Present illness Narrative 08-28-2024 JONATHAN Roche - 08/28/2024 9:00 AM EDT Note Date & Type Note Facility 08-28-2024 History of Presen t illness Narrative Associated Order(s): L Inj/Asp: L knee Post-Procedure Diagnose(s): Chondromalacia, patella, left Images from the original note were not included. HISTORY OF PRESENT ILLNESS: EST PT Christin Carrillo is an 73 y.o. @ female. EST PT RECHECK LT HIP PAIN- S/P PREDNISONE 08/07/24; NOTES SOME RELIEF XRAY LT HIP EPIC 08/07/24 PREDNISONE 08/07/24 SYMPTOMS LESS SEVERE-NOTES INTERMITTENT DISCOMFORT LATERAL HIP - PT IS PLEASED WITH PROGRESS AND MORE CONCERNED WITH LT KNEE PAIN TODAY *LT KNEE* (EST PT) FLARE UP (L) KNEE PAIN - NO KNOWN INJURY - NO RECENT TX XRAY LT KNEE TODAY EPIC 08/28/24 XRAYS 08/28/21 IN [facility] S/P DEXA SCAN 09/07/21 @ [facility] - DX OSTEOPOROSIS CORTISONE INJ 09/15/21 S/P MDP 08/31/21 PREVIOUS (L) KNEE SCOPE [address] OROURKE PAIN MEDIAL KNEE- TENDER TO TOUCH- DENIES SWELLING- DENIES INSTABILITY- SOME STIFFNESS- SOME DIFFICULTY WITH STAIRS- +IBUPROFEN - ALLERGIES: Allergies Allergen Reactions Bactrim [Sulfamethoxazole-Trimethoprim] Myalgia, lightheaded Sulfa Antibiotics Other HOME MEDICATIONS: Current Outpatient Medications Medication Instructions ALPRAZolam (XANAX) 0.25 mg, Oral, 3 times daily PRN calcitriol (ROCALTROL) 0.25 mcg, Oral, Daily latanoprost (Xalatan) 0.005 % ophthalmic solution INSTILL 1 DROP INTO BOTH EYES EVERY EVENING DIRECTED [facility] [place] [facility] [place] (Glucosamine Chond Complex/MSM) tablet Orally Multiple Vitamins-Minerals (MULTIVITAMIN WOMEN 50+ PO) Oral vitamin C 1,000 mg, Oral, Daily PHYSICAL EXAM: Knee Musculoskeletal Exam Gait Gait is normal. Inspection Leg length disparity: no discrepancy Left Erythema: none Effusion: mild Edema: none Ecchymosis: none Deformity: none Alignment: normal Palpation Left Left knee palpation is unremarkable. Increased warmth: none Masses: none Tenderness: present Medial joint line: mild Patella: moderate Range of Motion Left Left knee range of motion is normal and full. Active extension: 0 Passive extension: 0 Active flexion: 125 Passive flexion: 130 Strength Left Left knee strength is normal. Extension: 5/5. Instability Left Instability signs: none - stable Varus stress grade: normal Valgus stress grade: normal Anterior drawer: normal Medial Chinmay test: negative Lateral Chinmay test: negative Neurovascular Left Left knee neurovascular exam is normal. Pulses - PT: normal Posterior tibial: 2+ Capillary refill: warm and well-perfused Special Signs Left Straight leg raise: normal Patellar apprehension: moderate General Constitutional: appears stated age Labored breathing: no Psychiatric: normal mood and affect Neurological: alert Skin: intact Lymphadenopathy: none Vitals: There is no height or weight on file to calculate BMI. Tobacco Use: Low Risk (08/28/2024) Patient History Smoking Tobacco Use: Never Smokeless Tobacco Use: Never Passive Exposure: Not on file Alcohol Use: Not on file IMAGING: L Inj/Asp: L knee on 08/28/2024 9:31 AM Indications: pain Details: 22 G needle, anterolateral approach Medications: 40 mg methylPREDNISolone acetate 40 MG/ML Outcome: tolerated well, no immediate complications UTILIZING ASEPTIC TECHNIQUE PT GIVEN INJECTION IN LEFT KNEE, NEUROVASC INTACT S/P INJ, TOLERATED WELL Given by Student Keith GREWAL under my direct supervision. Procedure, treatment alternatives, risks and benefits explained, specific risks discussed. Consent was given by the patient. Patient was prepped and draped in the usual sterile fashion. Orders Placed This Encounter Procedures L Inj/Asp This order was created via procedure documentation XR knee 1 or 2 views left Order Specific Question: Reason for exam: Answer: PAIN ASSESSMENT: ICD-10-CM 1. Acute pain of left knee M25.562 XR knee 1 or 2 views left 2. Chondromalacia, patella, left M22.42 XR knee 1 or 2 views left PLAN: Pain with steps, prolonged sitting. Discussed acitivity levels. Xray reviewed at bedside with mild medial joint line oa and patellafemoral arthritis.. pt agreeable. Risk and benefits of injection discussed, consider visco if needed.. pt thankful. Questions answered in laymen terms at the bedside. The diagnosis, home exercise plan and any ongoing restrictions/ recommendations reviewed. If unable to be reached in office, I recommend evaluation at nearest Emergency Room if any symptoms worsened or new symptoms develop for requiring urgent evaluation. documented in this encounter [facility] History of Present illness Narrative 08-07-2024 JONATHAN Roche - 08/07/2024 10:45 AM EDT Note Date & Type Note Facility 08-07-2024 History of Presen t illness Narrative Images from the original note were not included. NAME: Christin Carrillo : 1950 HISTORY OF PRESENT ILLNESS: NEW PT Christin Carrillo is an 73 y.o. @ female. EST PT WITH NEW C/O LT HIP PAIN ~2-3WKS- NO KNOWN INJURY XRAY LT HIP TODAY EPIC 08/07/24 C/O ACHINESS- DENIES SHARP PAIN- PAIN DOES RADIATE DOWN TO KNEE- PT STATES SYMPTOMS HAVE IMPROVED - DENIES N/T- DENIES PAIN WITH BIKING- SOME DIFFICULTY GOING FROM SITTING TO STANDING/STAIRS- +IBUPROFEN PRN PAST MEDICAL HISTORY: Past Medical History: Diagnosis Date AV block, 1st degree Chronic neck pain Dyslipidemia (CMS/HCC) Insomnia due to mental disorder Osteopenia of neck of right femur Palpitations Dr. Juju Sheppard Post-menopausal Seasonal allergic rhinitis due to pollen PAST SURGICAL HISTORY: Past Surgical History: Procedure Laterality Date ANKLE SURGERY Left DENTAL IMPLANT 2021 DENTAL SURGERY NE KNEE SCOPE,DIAGNOSTIC Left 2014 Dr. Orourke TRIGGER FINGER RELEASE 05/2011 TRIGGER FINGER RELEASE Right 2014 Dr. Orourke SOCIAL HISTORY: Social History Occupational History Not on file Tobacco Use Smoking status: Never Smokeless tobacco: Never Substance and Sexual Activity Alcohol use: Never Drug use: Not on file Sexual activity: Not on file ALLERGIES: Allergies Allergen Reactions Bactrim [Sulfamethoxazole-Trimethoprim] Myalgia, lightheaded Sulfa Antibiotics Other HOME MEDICATIONS: Current Outpatient Medications Medication Instructions ALPRAZolam (XANAX) 0.25 mg, Oral, 3 times daily PRN calcitriol (ROCALTROL) 0.25 mcg, Oral, Daily latanoprost (Xalatan) 0.005 % ophthalmic solution INSTILL 1 DROP INTO BOTH EYES EVERY EVENING DIRECTED [facility] [place] (Glucosamine Chond Complex/MSM) tablet Orally Multiple Vitamins-Minerals (MULTIVITAMIN WOMEN 50+ PO) Oral predniSONE (Deltasone) 20 MG tablet Take 2 tablets (40 mg) by mouth Daily for 5 days, THEN 1 tablet (20 mg) Daily for 5 days. Take with food. vitamin C 1,000 mg, Oral, Daily REVIEW OF SYSTEMS: Review of Systems Vitals: Body mass index is 23.97 kg/m . Tobacco Use: Low Risk (08/07/2024) Patient History Smoking Tobacco Use: Never Smokeless Tobacco Use: Never Passive Exposure: Not on file Alcohol Use: Not on file PHYSICAL EXAM: Hip Musculoskeletal Exam Gait Gait is normal. Inspection Leg length disparity: no discrepancy Left Erythema: none Ecchymosis: none Edema: none Deformity: none Palpation Left Left hip palpation is normal. Increased warmth: none Tenderness: none Range of Motion Left Left hip range of motion is within functional limits. Active ROM: normal. Passive ROM: normal. Strength Left Left hip strength is normal. Extension: 5/5. Flexion: 5/5. Internal rotation: 5/5. External rotation: 5/5. Adduction: 5/5. Abduction: 5/5. Neurovascular Left Left hip neurovascular exam is normal. Pulses - PT: normal Posterior tibial: 2+ General Constitutional: appears stated age Labored breathing: no Psychiatric: normal mood and affect Neurological: alert and oriented x3 Skin: intact Lymphadenopathy: none IMAGING: Procedures Orders Placed This Encounter Procedures XR hip left 2 or 3 views Order Specific Question: Reason for exam: Answer: PAIN ASSESSMENT: ICD-10-CM 1. Left leg pain M79.605 XR hip left 2 or 3 views predniSONE (Deltasone) 20 MG tablet PLAN: suspect Lumbar radiculopathy L5, rx prednisone taper sent. Will start if symptoms persist. Pt notes aching pain relief with sitting. Benign hip exam. Recheck in 3 wks.. consider eval of back if unchanged. Questions answered in laymen terms at the bedside. The diagnosis, home exercise plan and any ongoing restrictions/ recommendations reviewed. If unable to be reached in office, I recommend evaluation at nearest Emergency Room if any symptoms worsened or new symptoms develop for requiring urgent evaluation. documented in this encounter [facility] History of Present illness Narrative 07-15-2024 Pete Alcala MD - 07/15/2024 8:41 AM EDJustin Alcala MD - 07/15/2024 8:41 AM Max Alcala MD - 07/15/2024 8:41 AM Max Alcala MD - 07/15/2024 8:00 AM EDT Note Date & Type Note Facility 07-15-2024 History of Presen t illness Narrative Associated Problem(s): Insomnia related to another mental disorder Sleeping well with medication and use PRN. Associated Problem(s): First degree atrioventricular block No palpitations and monitor. Associated Problem(s): DDD (degenerative disc disease), cervical Occasional pain but mild and use OTC PRN. Images from the original note were not included. Subjective Patient ID: Christin Carrillo is a 73 y.o. female who presents for Follow-up (6m) and Anxiety. Follow up heart block, allergies, neck pain, and insomnia. Doing well at today's visit. No palpitations or skipping beats. Not lightheaded or dizzy. No heart racing. Sleeping well. Typically able to fall asleep and stay asleep. Wakes up rested in am. Some nights notice thought racing and feels wound up when going to bed. Uses xanax few times a month and helps sleep when needed. Remains active and exercises several days a week. Neck pain stable. Mild stiffness in base neck and top shoulders. Uses OTC PRN and helps when needed. Anxiety Patient reports no chest pain, nausea, palpitations or shortness of breath. Review of Systems Respiratory: Negative for cough, shortness of breath and wheezing. Cardiovascular: Negative for chest pain and palpitations. Gastrointestinal: Negative for abdominal pain, diarrhea, nausea and vomiting. Genitourinary: Negative for dysuria. Objective Physical Exam Constitutional: General: She is not in acute distress. Appearance: Normal appearance. HENT: Head: Normocephalic. Right Ear: Tympanic membrane normal. Left Ear: Tympanic membrane normal. Eyes: Extraocular Movements: Extraocular movements intact. Pupils: Pupils are equal, round, and reactive to light. Cardiovascular: Rate and Rhythm: Normal rate and regular rhythm. Heart sounds: No murmur heard. No friction rub. No gallop. Pulmonary: Effort: Pulmonary effort is normal. Breath sounds: Normal breath sounds. No wheezing, rhonchi or rales. Abdominal: General: Bowel sounds are normal. There is no distension. Palpations: Abdomen is soft. Tenderness: There is no abdominal tenderness. There is no guarding or rebound. Musculoskeletal: Cervical back: Neck supple. Right lower leg: No edema. Left lower leg: No edema. Neurological: Mental Status: She is alert. Assessment/Plan Problem List Items Addressed This Visit First degree atrioventricular block No palpitations and monitor. DDD (degenerative disc disease), cervical Occasional pain but mild and use OTC PRN. Dyslipidemia (CMS/HCC) Relevant Orders Lipid panel Insomnia related to another mental disorder - Primary Sleeping well with medication and use PRN. Osteopenia of neck of right femur Relevant Orders DEXA bone density Encounter for long-term current use of medication Relevant Orders Basic metabolic panel CBC and differential Hepatic function panel Other fatigue Relevant Orders TSH documented in this encounter [facility] Evaluation note Note Date & Type Note Facility Evaluation note Diagnosis First degree atrioventricular block- Primary Seasonal allergic rhinitis due to pollen Insomnia related to another mental disorder Unspecified nonpsychotic mental disorder DDD (degenerative disc disease), cervical Degeneration of cervical intervertebral disc Insomnia related to another mental disorder- Primary Unspecified nonpsychotic mental disorder First degree atrioventricular block DDD (degenerative disc disease), cervical Degeneration of cervical intervertebral disc Dyslipidemia (CMS/HCC) Other and unspecified hyperlipidemia Encounter for long-term current use of medication Other fatigue Osteopenia of neck of right femur Acute pain of left knee- Primary Chondromalacia, patella, left documented in this encounter [facility] Evaluation note Note Date & Type Note Facility Evaluation note Diagnosis First degree atrioventricular block- Primary Seasonal allergic rhinitis due to pollen Insomnia related to another mental disorder Unspecified nonpsychotic mental disorder DDD (degenerative disc disease), cervical Degeneration of cervical intervertebral disc Insomnia related to another mental disorder- Primary Unspecified nonpsychotic mental disorder First degree atrioventricular block DDD (degenerative disc disease), cervical Degeneration of cervical intervertebral disc Dyslipidemia (CMS/HCC) Other and unspecified hyperlipidemia Encounter for long-term current use of medication Other fatigue Osteopenia of neck of right femur Right arm pain- Primary Pain in soft tissues of limb Impingement of right shoulder Acute pain of right shoulder documented in this encounter [facility] Evaluation note Note Date & Type Note Facility Evaluation note Diagnosis Insomnia related to another mental disorder- Primary Unspecified nonpsychotic mental disorder First degree atrioventricular block DDD (degenerative disc disease), cervical Degeneration of cervical intervertebral disc Dyslipidemia (CMS/HCC) Other and unspecified hyperlipidemia Encounter for long-term current use of medication Other fatigue Osteopenia of neck of right femur documented in this encounter [facility] Evaluation note Note Date & Type Note Facility Evaluation note Diagnosis Left leg pain- Primary Pain in soft tissues of limb documented in this encounter [facility] Evaluation note Note Date & Type Note Facility Evaluation note Diagnosis First degree atrioventricular block- Primary Seasonal allergic rhinitis due to pollen Insomnia related to another mental disorder Unspecified nonpsychotic mental disorder DDD (degenerative disc disease), cervical Degeneration of cervical intervertebral disc Insomnia related to another mental disorder- Primary Unspecified nonpsychotic mental disorder First degree atrioventricular block DDD (degenerative disc disease), cervical Degeneration of cervical intervertebral disc Dyslipidemia (CMS/HCC) Other and unspecified hyperlipidemia Encounter for long-term current use of medication Other fatigue Osteopenia of neck of right femur Medicare annual wellness visit, subsequent- Primary Memory loss documented in this encounter [facility] Summary Purpose Family History No Family History Records FoundNo Family History Records Found Advance Directives No Advanced Directives Records FoundNo Advanced Directives Records Found Additional Source Comments INFORMATION SOURCE (unrecogn ized section and content) DATE CREATED AUTHOR 03/25/2023 [facility] DATE CREATED AUTHOR AUTHOR'S ORGANIZ ATION 11/24/2024 [facility] Care Teams (unrecognized sec tion and content) Apple Checker Relationship Specialty Start Date End Date Pete Alcala MD [address] [place] [address] PCP - General Family Medicine 12/17/23 Apple Checker Relationship Specialty Start Date End Date Pete Alcala MD [address] [place] [address] PCP - General Family Medicine 12/17/23 Apple Checker Relationship Specialty Start Date End Date Pete Alcala MD [address] [place] [address] PCP - General Family Medicine 12/17/23 Apple Checker Relationship Specialty Start Date End Date Pete Alcala MD [address] [place] [id number] PCP - General Family Medicine 12/17/23 Apple Checker Relationship Specialty Start Date End Date Pete Alcala MD [address] [place] [address] PCP - General Family Medicine 12/17/23 Apple Checker Relationship Specialty Start Date End Date Pete Alcala MD [address] [place] [address] PCP - General Family Medicine 12/17/23 Apple Checker Relationship Specialty Start Date End Date Pete Alcala MD [address] [place] [id number] PCP - General Family Medicine 12/17/23 Apple Checker Relationship Specialty Start Date End Date Pete Alcala MD [address] [place] [address] PCP - General Family Medicine 12/17/23 Reason for Visit (unrecogniz ed section and content) Reason Comments Pain Reason Comments Pain Reason Comments Follow-up 6m Anxiety FOR RECORDS PERTAINING TO PATIENTS WHO ARE [...] BE BASED ON THE PRIMARY CLINICAL RECORDS. [facility]. provides no warranty or guarantee of the accuracy or completeness of information in this document.
[2024-12-09 11:52] LABS: Basophils Percent Auto 0.9 % (0.2-2.0); Eosinophils Absolute Auto 0.1 10^3/uL (0.0-0.7); Eosinophils Percent Auto 2.4 % (0.9-7.0); Hematocrit 42.5 % (36.0-48.0); Hemoglobin 13.9 g/dL (12.0-16.0); Immature Granulocytes Abs Auto 0.02 10^3/uL (0.00-0.03); Immature Granulocytes Pct Auto 0.6 % (0.0-0.5); Lymphocytes Percent Auto 30.2 % (20.5-60.0); Mean Corpuscular HGB Conc 32.7 g/dL (29.9-35.2); Mean Corpuscular Hemoglobin 29.1 pg (26.7-34.0); Mean Corpuscular Volume 89.1 fL (81.0-99.0); Mean Platelet Volume 8.9 fL (9.5-13.5); Monocytes Absolute Auto 0.4 10^3/uL (0.3-0.8); Monocytes Percent Auto 11.4 % (1.7-12.0); Neutrophils Absolute Auto 1.8 10^3/uL (1.4-6.5); Neutrophils Percent Auto 54.5 % (43.0-75.0); Platelet Count 252 10^3/uL (150-450); Red Blood Count 4.77 10^6/uL (4.20-5.40); Red Cell Distribution Width 14.2 % (11.0-15.0); White Blood Count 3.3 10^3/uL (4.0-11.0)
[2024-12-09 12:29] LABS: Alanine Aminotransferase 31 U/L (14-59); Albumin Globulin Ratio 1.2; Albumin Level 3.8 g/dL (3.4-5.0); Alkaline Phosphatase 78 U/L (46-116); Anion Gap 9.1; Aspartate Amino Transferase 25 U/L (15-37); BUN Creatinine Ratio 24.2; Bilirubin Direct 0.1 mg/dL (0.0-0.2); Bilirubin Total 0.5 mg/dL (0.2-1.0); Carbon Dioxide 34.3 mmol/L (21.0-32.0); Chloride 105 mmol/L (98-107); Chol HDL Ratio 4.4; Cholesterol 229 mg/dL (<=200); Estimated GFR (African America >60 (>=60 mL/min/1.73m^2); Estimated GFR (Non-African Ame 58 (>=60 mL/min/1.73m^2); Globulin 3.1 g/dL; Glucose 98 mg/dL (74-106); HDL Cholesterol 52 mg/dL (40-60); Potassium 4.4 mmol/L (3.5-5.1); Sodium 144 mmol/L (136-145); Thyroid Stimulating Hormone 2.306 uIU/mL (0.358-3.740); Total Protein 6.9 g/dL (6.4-8.2); Triglycerides 167 mg/dL (<=150); VLDL CHOLESTEROL 33.4 mg/dL
== END 2024-12-09 11:33 | disposition home or self-care (01) ==
PROVIDERS: PCP Family Medicine; Visit Provider Family Medicine
DX: E78.5 Hyperlipidemia, unspecified (principal); R53.83 Other fatigue; Z79.899 Other long term (current) drug therapy
CPT/HCPCS: 36415; 80048; 80061; 80076; 84443; 85025

== ENCOUNTER 2025-03-01 16:22 | Outpatient (OUT) | payer MEDICARE, SELFPAY ==
--- OUTSIDE RECORDS SUMMARY | 2025-03-01 16:48 | XMS_ITS | CCD ---
Author Organization [facility] Care Team Providers Care Family Practice Physician Name Role Phone DR PETE ALCALA Primary Care Unavailable CARI, DR PETE Baker Admitting Unavailable RICHARDEREPawel, DR PETE Baker Attending Unavailable CARI, DR PETE Baker Primary Care Unavailable TAMLYN Nesha, NADRES Admitting Unavailable TAMLYN ., ANDRES Attending Unavailable TAMLYN Nesha, ANDRES Consulting Unavailable INEZ STANLEY Consulting Unavailable RUSTY RICH Consulting Unavailable CARI, DR PETE Baker Attending Unavailable CARI, DR PETE Baker Primary Care Unavailable CARI, DR PETE Baker Admitting Unavailable YAYA, DR ALEXANDER Oneill Consulting Unavailable NADERER, DR PETE Baker Consulting Unavailable NADEREPawel, DR PETE Baker Primary Care Unavailable JUAN FISHER Admitting Unavailable JUAN FISHER Attending Unavailable PHILLIP, JUAN Consulting Unavailable JEREMÍAS JOSEPH Consulting Unavailable Pete Alcala MD Primary Care Provider Pete Alcala MD Unavailable Sally Pinzon DO Unavailable PETE ALCALA Attending Unavailable CASE MENENDEZ Attending Unavailable CASE MENENDEZ Referring Unavailable CASE MENENDEZ Attending Unavailable CASE MENENDEZ Referring Unavailable CASE MENENDEZ Attending Unavailable CASE MENENDEZ Referring Unavailable PETE ALCALA Attending Unavailable CARI, PETE Attending Unavailable SALLY PINZON Attending Unavailable PETE ALCALA Referring Unavailable SALLY PINZON Referring Unavailable RENAN DENNIS Attending Unavailable SALLY PINZON Referring Unavailable Allergies Allergy Classification Reported Allergen(s) Allergy Type Date of Onset Reaction(s) Facility (1 source) Sulfamethoxazole / Trimethoprim Drug Allergy 3 [facility] (1 source) Sulfonamides (Antibiotic) Drug allergy (disorder) 9 [facility] (20 sources) Sulfamethoxazole / Trimethoprim Drug Allergy 4 [facility] Healthcare (20 sources) Sulfonamides (Antibiotic) Drug Allergy 3 Other [facility] Medications Current Medications Medication Drug Class(es) Dates Sig (Normalized) Sig (Original) ALPRAZolam 0.25 mg oral tablet (20 sources) Benzodiazepine Start: 12-23-2024 End: 01-02-2025 take 1 tablet by mouth three times daily as needed for anxiety ALPRAZolam (Xanax) 0.25 MG tablet Indications: Anxiety Take 1 tablet (0.25 mg) by mouth 3 (three) times a day as needed for anxiety for up to 10 days 30 tablet 1 12/23/2024 Active ascorbic acid 1000 mg oral tablet (20 sources) Vitamin C take 1 tablet by mouth in the morning Ascorbic Acid (vitamin C) 1000 MG tablet Take 1,000 mg by mouth in the morning. Active calcitriol 0.62563 mg oral capsule (19 sources) Vitamin D3 Analog take 1 capsule by mouth once daily calcitriol (Rocaltrol) 0.25 MCG capsule Take 0.25 mcg by mouth Daily Active ferrous sulfate 325 mg delayed release oral tablet (3 sources) take 1 tablet by mouth at mealtime ferrous sulfate 325 (65 Fe) MG EC tablet Indications: Mild cognitive impairment Take 325 mg by mouth in the morning. Take with meals. Do not crush, chew, or split.. Active latanoprost 0.05 mg/ml ophthalmic solution (20 sources) Prostaglandin Analog Start: 12-21-2024 Latanoprost 0.005 % drops Active DROPS OPHTHALMIC December 21, 2024 12:00am Start: 06-05-2023 take 1 drop(s) into the eye(s) once daily in the evening latanoprost (Xalatan) 0.005 % ophthalmic solution INSTILL 1 DROP INTO BOTH EYES EVERY EVENING DIRECTED 06/05/2023 Active methylPREDNISolone (9 sources) Corticosteroid Start: 09-15-2024 End: 11-19-2024 methylPREDNISolone (Medrol Dospak) 4 MG tablets Indications: [...] Misc Natural Products (Glucosamine Chond Complex/MSM) tablet (20 sources) Misc Natural Pro ducts (Glucosamine Chond Complex/MSM) tablet Orally Active Multiple Vitamins-Minerals (MULTIVITAMIN WOMEN 50+ PO) (20 sources) Multiple Vitamins-Minerals (MULTIVITAMIN WOMEN 50+ PO) [...] Date Documented Da te Episodic/Chronic Anxiety disorders (13 sources) Anxiety; Translations: [Anxiety disorder, unspecified] Onset: 5 11-19-2024 Chronic Conduction disorders (20 sources) First degree atrioventricular block; Translations: [Atrioventricular block, first degree] Onset: 4 02-03-2024 Chronic Disorders of lipid metabolism (20 sources) Dyslipidemia; Translations: [Hyperlipidemia, unspecified] Onset: 4 02-03-2024 Chronic Immunizations and screening for infectious disease (1 source) Contact with or exposure to other viral diseases; Translations: [Contact with and (suspected) exposure to covid-19] 12-21-2024 Episodic Influenza (9 sources) Influenza due to Influenza A virus; Translations: [Influenza due to other identified influenza virus with other respiratory manifestations] Onset: 5 12-21-2024 Episodic Joint disorders and dislocations; trauma-related (4 sources) Chondromalacia of left patella; Translations: [Chondromalacia patellae, left knee] 08-28-2024 Chronic Other aftercare (1 source) Other correction (current) drug therapy; 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] Onset: 3 Episodic Other [...] Translations: [CONSTIPATION UNSPECIFIED] Onset: 3 Episodic Other hereditary and degenerative nervous system conditions (2 sources) Impaired cognition; Translations: [Mild cognitive impairment, so stated] 02-16-2025 Chronic Other nervous system disorders (2 sources) Disturbance of attention; Translations: [Attention and concentration deficit] 02-16-2025 Chronic Other non-traumatic joint disorders (2 sources) Pain [...] breast] Onset: 2 Episodic Residual codes; unclassified (14 sources) Amnesia; Translations: [Other amnesia] Onset: 5 11-19-2024 Episodic Residual codes; unclassified (2 sources) Family history of dementia; Translations: [Family history of other mental and behavioral disorders] 02-16-2025 Episodic Spondylosis; intervertebral disc disorders; other back problems (20 sources) Degeneration of cervical intervertebral disc; Translations: [Other cervical disc degeneration, unspecified cervical region] Onset: 4 02-03-2024 Chronic Past or Other Problems Problem Classification Problem Date Documented Da te Episodic/Chronic Malaise and fatigue (20 sources) Fatigue; Translations: [Other fatigue] Onset: 07-15-2024 Resolved: 11-19-2024 07-15-2024 Episodic Miscellaneous mental health disorders (20 sources) Insomnia disorder related to another mental disorder; Translations: [Insomnia due to other mental disorder] Onset: 02-03-2024 Resolved: 11-19-2024 02-03-2024 Chronic Mood disorders (10 sources) Mood disorders Onset: 11-19-2024 11-19-2024 Other aftercare (20 sources) Long-term current use of drug therapy; Translations: [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] Onset: 07-15-2024 07-15-2024 Episodic Other aftercare (4 sources) Patient encounter status; Translations: [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] Onset: 07-15-2024 07-15-2024 Episodic Other bone disease and musculoskeletal deformities (20 sources) Osteopenia; Translations: [Other specified disorders of bone density and structure, right thigh] Onset: 02-03-2024 02-03-2024 Episodic Other injuries and conditions due to external causes (4 sources) Unspecified injury of muscle, fascia and tendon of the posterior muscle group at thigh level, right thigh, subsequent encounter; Translations: [UNS INJ MSC FASC POST THIGH RT SUB] Onset: 08-10-2022 Episodic Other upper respiratory disease (20 sources) Allergic rhinitis due to pollen; Translations: [Allergic rhinitis due to pollen] Onset: 02-03-2024 Resolved: 11-19-2024 02-03-2024 Chronic Residual codes; unclassified (1 source) Family history of other malignant neoplasms of lymphoid, hematopoietic and related tissues; Translations: [FAM HX OTH MAL CAPO LYMPH HEMATPOETC] Onset: 09-13-2022 Episodic Results Test Name Value Interpretation Reference Range Facility MR BRAIN W AND WO CONTRAST ( ROUTINE)on 02-10-2025 MR BRAIN W AND WO CONTRAST (ROUTINE) MR BRAIN W AND WO CONTRAST (ROUTINE) INDICATION: Memory loss, denies memory loss COMPARISON: None. TECHNIQUE: Sagittal T1, axial T2, axial T2* GRE, axial FLAIR, axial DWI sequences of the brain were acquired. Postcontrast axial and coronal T1 images following 7 mL of vueway FINDINGS: Diffusion-weighted images are within normal limits. CEREBRUM: There are scattered periventricular and several subcortical T2/FLAIR hyperintensities. CEREBELLUM: Normal. BRAINSTEM: Normal. VENTRICLES AND EXTRA-AXIAL SPACES: The ventricles are normal in size and symmetric. There are no extra-axial fluid collections. MAJOR ARTERIES/DURAL SINUSES: The dural venous sinuses and arterial structures enhance appropriately. No pathologic enhancement is present. SKULL/SCALP: Normal. PARANASAL SINUSES AND MASTOID AIR CELLS: Mild mucosal thickening along the floor of each maxillary sinus. IMPRESSION: No significant atrophy is seen. Scattered cerebral white matter T2/FLAIR hyperintensities, nonspecific, although most likely due to chronic small vessel ischemic disease. Dictated on: 02/10/2025 12:09 PM This report has been electronically signed and approved by the interpreting Radiologist. Normal Not Available ALL CBC WITH AUTO DIFFon BASOPHILS ABSOLUTE AUTO 0 [facility] Basophils/100 WBC (Bld) 0.9 % 0.2 - 2.0 % [facility] Eosinophils/100 WBC (Bld) 2.4 % 0.9 - 7.0 % [facility] Erythrocyte distribution width (RBC) [Ratio] 14.2 % 11.0 - 15.0 % [facility] Hematocrit (Bld) [Volume fraction] 42.5 % 36.0 - 48.0 % [facility] Hemoglobin (Bld) [Mass/Vol] 13.9 g/dL 12.0 - 16.0 g/dL [facility] IMMATURE GRANULOCYTES ABS AUTO 0.02 [facility] Immature granulocytes/100 WBC (Bld) 0.6 % High 0.0 - 0.5 % [facility] Interpretation and review of laboratory results Abnormal [facility] LYMPHOCYTES ABSOLUTE AUTO 1 Low [facility] Lymphocytes/100 WBC (Bld) 30.2 % 20.5 - 60.0 % [facility] MCH (RBC) [Entitic mass] 29.1 pg 26.7 - 34.0 pg [facility] MCHC (RBC) [Mass/Vol] 32.7 g/dL 29.9 - 35.2 g/dL [facility] MCV (RBC) [Entitic vol] 89.1 fL 81.0 - 99.0 fL [facility] MONOCYTES ABSOLUTE AUTO 0.4 [facility] Monocytes/100 WBC (Bld) 11.4 % 1.7 - 12.0 % [facility] NEUTROPHILS ABSOLUTE AUTO 1.8 [facility] Neutrophils/100 WBC (Bld) 54.5 % 43.0 - 75.0 % [facility] Platelet mean volume (Bld) [Entitic vol] 8.9 fL Low 9.5 - 13.5 fL [facility] EO # 0.1 [facility] PLT 252 [facility] RBC 4.77 [facility] WBC 3.3 Low [facility] XR Shoulder - right 2 Viewso n 09-15-2024 Imaging Result: AP and Scapular Y right shoulder: No acute fracture or dislocation Visualized lung diaz unremarkable. Moderate degenerative changes AC joint shoulder Impression: Moderate AC joint arthritis with no acute bony process right shoulder [facility] Radiology Study observation (narrative) [facility] No Panel Informationon 08-28 JONATHAN Roche [...] and draped in the usual sterile fashion. [facility] XR Knee - left 1 or 2 Viewso n 08-28-2024 Imaging Result: AP AND LATERAL STANDING LEFT KNEE: No acute fracture. Mild to moderate patellafemoral arthritis Narrowing medial joint line with subchondral scleroris.. No significant joint effusion or soft tissue findings Slight varus alignment Impression: Mild degenerative changes left knee [facility] Radiology Study observation (narrative) [facility] XR ABD FLAT_UPon 03-24-2023 XR ABD FLAT_UP EXAM: XR ABD FLAT_UP HISTORY: Constipation COMPARISON: None. TECHNIQUE: Supine study on 2 films FINDINGS: Prominent stool is noted within the colon. No dilated small bowel loops. No abnormal calcifications. IMPRESSION: Apparent constipation. Electronically authenticated by: Liseth JOSEPH Date: 2023-03-24 00:41 Normal [facility] MG MAMM SCREEN 3D ZAYRA CADon 09-10-2022 MG MAMM SCREEN 3D ZAYRA CAD Patient: CHRISTIN CARRILLO Exam Date: 09/10/2022 : 1950 Gender:F Ordering : DR PETE ALCALA . Admission #: [id number] Family : Order #: [id number] CLICK HERE TO VIEW EXAM RADIOLOGY REPORT [...] lymphoma cancer at age 81. LOCATION: [facility] BREAST COMPOSITION: Heterogeneously dense,which may obscure [...] MD on 09/10/2022 at 10:19 Normal [facility] Vital Signs Date Time Vital Sign Value Performing Clinician Facility 12-30-2024 08:58-0500 Body height 172.7 cm Pete Alcala MD Work Phone: [facility] 12-30-2024 08:58-0500 Body mass index (BMI) [Ratio] 25.54 kg/m2 Pete Alcala MD Work Phone: [facility] 12-30-2024 08:58-0500 Body temperature 97.11 [degF] Pete Alcala MD Work Phone: [facility] 12-30-2024 08:58-0500 Body weight 76.2 kg Pete Alcala MD Work Phone: [facility] 12-30-2024 08:58-0500 Diastolic blood pressure 46 mm[Hg] Pete Alcala MD Work Phone: [facility] 12-30-2024 08:58-0500 Heart rate 90 /min Pete Alcala MD Work Phone: [facility] 12-30-2024 08:58-0500 Respiratory rate 22 /min Pete Alcala MD Work Phone: [facility] 12-30-2024 08:58-0500 SaO2% (BldA) [Mass fraction] 97 % Pete Alcala MD Work Phone: [facility] 12-30-2024 08:58-0500 Systolic blood pressure 128 mm[Hg] Pete Alcala MD Work Phone: [facility] 12-21-2024 09:16-0500 Body height 175.26 cm [facility] 12-21-2024 09:16-0500 Body mass index (BMI) [Ratio] 24.7 kg/m2 [facility] 12-21-2024 09:16-0500 Body temperature 97.8 [degF] [facility] 12-21-2024 09:16-0500 Body weight 75.8 kg [facility] 12-21-2024 09:16-0500 Diastolic blood pressure 79 mm[Hg] [facility] 12-21-2024 09:16-0500 Heart rate 71 /min [facility] 12-21-2024 09:16-0500 Respiratory rate 19 /min [facility] 12-21-2024 09:16-0500 SaO2% (BldA) [Mass fraction] 98 % [facility] 12-21-2024 09:16-0500 Systolic blood pressure 133 mm[Hg] [facility] 11-19-2024 07:00-0500 Body mass index (BMI) [Ratio] 25.02 kg/m2 Pete Alcala MD Work Phone: [facility] 11-19-2024 07:00-0500 Body temperature 97 [degF] Pete Alcala MD Work Phone: [facility] 11-19-2024 07:00-0500 Body weight 75.75 kg Pete Alcala MD Work Phone: [facility] 11-19-2024 07:00-0500 Diastolic blood pressure 68 mm[Hg] Pete Alcala MD Work Phone: [facility] 11-19-2024 07:00-0500 Heart rate 74 /min Pete Alcala MD Work Phone: [facility] 11-19-2024 07:00-0500 SaO2% (BldA) [Mass fraction] 97 % Pete Alcala MD Work Phone: [facility] 11-19-2024 07:00-0500 Systolic blood pressure 118 mm[Hg] Pete Alcala MD Work Phone: [facility] 08-07-2024 10:55-0400 Body height 174 cm Case CASTILLO Work Phone: [facility] 08-07-2024 10:55-0400 Body mass index (BMI) [Ratio] 23.97 kg/m2 Case CASTILLO Work Phone: [facility] 08-07-2024 10:55-0400 Body weight 72.58 kg Case CASTILLO Work Phone: [facility] 07-15-2024 08:05-0400 Body height 172.7 cm Pete Alcala MD Work Phone: [facility] 07-15-2024 08:05-0400 Body mass index (BMI) [Ratio] 25.54 kg/m2 Pete Alcala MD Work Phone: [facility] 07-15-2024 08:05-0400 Body temperature 97.3 [degF] Pete Alcala MD Work Phone: [facility] 07-15-2024 08:05-0400 Body weight 76.2 kg Pete Alcala MD Work Phone: [facility] 07-15-2024 08:05-0400 Diastolic blood pressure 40 mm[Hg] Pete Alcala MD Work Phone: [facility] 07-15-2024 08:05-0400 Heart rate 75 /min Pete lAcala MD Work Phone: [facility] 07-15-2024 08:05-0400 Respiratory rate 22 /min Pete Alcala MD Work Phone: [facility] 07-15-2024 08:05-0400 SaO2% (BldA) [Mass fraction] 98 % Pete Alcala MD Work Phone: [facility] 07-15-2024 08:05-0400 Systolic blood pressure 120 mm[Hg] Pete Alcala MD Work Phone: [facility] Healthcare Encounters Encounter Date Encounter Type Care Provider Facility Start: 02-16-2025 End: 02-16-2025 Bamboo flowsheet Renan Dennis PhD Work Phone: [facility] Start: 02-16-2025 End: 02-16-2025 Bamboo flowsheet Renan Dennis PhD Work Phone: [facility] Start: 02-16-2025 End: 02-16-2025 Patient encounter procedure Renan Dennis PhD Work Phone: [facility] Comment on above: Mild cognitive impai rment (Primary Dx); Concentration deficit; Anxiety; Family history of dementia Start: 02-16-2025 End: 02-16-2025 ambulatory RENAN SONNY Not Available Start: 02-10-2025 End: 02-10-2025 ambulatory JESSICAER JAKE Not Available Start: 02-01-2025 End: 02-01-2025 ambulatory CHRISTOPHER JAKE Not Available Start: 12-30-2024 End: 12-30-2024 Bamboo flowsheet Pete Alcala MD Work Phone: [facility] Start: 12-30-2024 End: 12-30-2024 Bamboo flowsheet Pete Alcala MD Work Phone: [facility] Start: 12-30-2024 End: 12-30-2024 Office outpatient visit 15 minutes Pete Alcala MD Work Phone: [facility] Comment on above: Influenza A (Primary Dx) Start: 12-30-2024 End: 12-30-2024 ambulatory PETE ALCALA Not Available Start: 12-23-2024 End: 12-23-2024 Refill Pete Alcala MD Work Phone: [facility] Comment on above: Anxiety (Primary Dx) Start: 12-21-2024 End: 12-21-2024 ambulatory [facility] Work Phone: Start: 12-21-2024 End: 12-21-2024 Patient encounter procedure [facility] [place] Work Phone: Start: 12-09-2024 End: 12-09-2024 [facility] Result Encounter Pete Alcala MD Work Phone: [facility] Unsolicited Start: 12-09-2024 End: 12-09-2024 [facility] Result Encounter Pete Alcala MD Work Phone: [facility] Unsolicited Start: 11-19-2024 End: 11-19-2024 Bamboo flowsheet Pete [...] 11-19-2024 End: 11-19-2024 Patient encounter procedure Pete Alcala MD Work Phone: [facility] Start: 11-19-2024 End: 11-19-2024 ambulatory PETE ALCALA Not Available Start: 09-15-2024 End: 09-15-2024 Bamboo flowsheet Case Menendez PA Work Phone: [facility] Start: 09-15-2024 End: 09-15-2024 Bamboo flowsheet Case Menendez PA Work Phone: [facility] Start: 09-15-2024 End: 09-15-2024 Office outpatient visit 25 minutes Case CASTILLO Work Phone: [facility] Comment on above: Right arm pain (Prim rajni Dx); Impingement of right shoulder; Acute pain of right shoulder Start: 09-15-2024 End: 09-15-2024 ambulatory CASE MENENDEZ Not Available Start: 08-28-2024 End: 08-28-2024 Bamboo flowsheet Case CASTILLO Work Phone: [facility] Start: 08-28-2024 End: 08-28-2024 Bamboo flowsheet Case Menendez PA Work Phone: [facility] Start: 08-28-2024 End: 08-28-2024 Office outpatient visit 25 minutes Case CASTILLO Work Phone: [facility] Comment on above: Acute pain of left k nee (Primary Dx); Chondromalacia, patella, left Start: 08-28-2024 End: 08-28-2024 ambulatory CASE MENENDEZ Not Available Start: 08-07-2024 End: 08-07-2024 Bamboo flowsheet Case Menendez PA Work Phone: [facility] Start: 08-07-2024 End: 08-07-2024 Bamboo flowsheet Case Menendez PA Work Phone: [facility] Start: 08-07-2024 End: 08-07-2024 Office outpatient visit 25 minutes Case CASTILLO Work Phone: [facility] Comment on above: Left leg pain [...] Phone: [facility] Comment on above: Insomnia related to another mental disorder (Primary Dx); First degree atrioventricular block; DDD (degenerative disc disease), cervical; Dyslipidemia (CMS/HCC); Encounter for long-term current use of medication; Other fatigue; Osteopenia of neck of right femur Start: 07-15-2024 End: 07-15-2024 ambulatory PETE ALCALA Not Available Start: 03-24-2023 End: 03-24-[address] PETE ALCALA Facility:[facility] Start: 03-15-2023 End: 03-15-[address] PETE ALCALA Facility:[facility] Start: 09-10-2022 End: 09-11-[address] PETE ALCALA Facility:[facility] Start: 08-10-2022 End: 08-31-[address] PETE ALCALA Facility:[facility] Procedures Date Procedure Procedure Detail Performing Clinician Start: 12-09-2024 ALL CBC WITH AUTO DIFF Pete Alcala MD Work Phone: Start: 09-15-2024 Radex shoulder compl ete minimum [...] Screening for malign ant neoplasm of colon [facility] Start: 11-19-2025 Medicare Annual Wellness (AWV) Medicare Annual Wellness (AWV) [facility] Start: 09-14-2025 Screening for malign ant neoplasm of breast Mammogram [facility] Start: 05-20-2025 End: 05-20-2025 Patient encounter procedure 05/20/2025 10:00 AM EDT Office Visit [facility] [address] [place] [phone] Pete Alcala MD [address] [place] [phone] [facility] Start: 03-18-2025 End: 03-18-2025 Patient encounter procedure 03/18/2025 10:00 AM EDT Office Visit [facility] [address] [place] [phone] Latisha Kunz PA [address] [place] [address] [facility] Start: 03-04-2025 End: 03-04-2025 Patient encounter procedure 03/04/2025 10:00 AM EDT Office Visit [facility] [address] [place] [phone] [facility] Start: 02-16-2025 End: 02-16-2025 Patient encounter procedure 02/16/2025 10:00 AM EDT Office Visit [facility] [address] [facility] [address] [place] [phone] Renan Dennis, PhD [address] [place], [place] [phone] Mild cognitive impairment [facility] Comment on above: Mild cognitive impai rment Start: 02-01-2025 End: 02-01-2025 Patient encounter procedure 02/01/2025 11:00 AM EDT Office Visit [facility] [address] [place] [address], [place] [address] Sally Pinzon, DO [address] [place] [address] [place] [address] [facility] Start: 12-30-2024 End: 12-30-2024 Patient encounter procedure 12/30/2024 8:45 AM EST Office Visit [facility] [address] [place] [phone] Pete Alcala MD [address] [place] [phone] Arrived [facility] Comment on above: Arrived Start: 12-29-2024 End: 12-29-2024 Patient encounter procedure 12/29/2024 2:15 PM EST Office Visit [facility] [address] [place] [address] Pete Alcala MD [address] [place] [address] [facility] Start: 12-22-2024 End: 12-22-2024 Patient encounter procedure 12/22/2024 1:00 PM EST [facility] Visit [facility] [address] [place] [phone] Sally Pinzon, DO [address] [place] [address] [facility] Start: 11-19-2024 End: 11-19-2024 Patient encounter procedure 11/19/2024 10:45 AM EST Office Visit [facility] [address] [place] [phone] Pete Alcala MD [address] [place] [phone] Arrived [facility] Comment on above: Arrived Start: 10-14-2024 End: 10-14-2024 Patient encounter procedure 10/14/2024 9:30 AM EST Office Visit [facility] [address] [place] [address] Pete Alcala MD [address] [place] [phone] [facility] Start: 09-15-2024 End: 09-15-2024 Patient encounter procedure 09/15/2024 1:15 PM EST Office Visit [facility] [address] [place] [phone] Case Menendez PA [address] [facility] [address] [place] [address] Right arm pain (Primary Dx) [facility] Comment on above: Right arm pain (Prim rajni Dx) Start: 09-13-2024 Screening for malign ant neoplasm of breast Mammogram [facility] Start: 08-28-2024 End: 08-28-2024 Patient encounter procedure [facility] Comment on above: Acute hip pain, left (Primary Dx) Start: 08-07-2024 End: 08-07-2024 Patient encounter procedure 08/07/2024 10:45 AM EDT Office Visit [facility] [address] [place] [address] Case Menendez PA [address] [facility] [address] [place] [address] Left leg pain (Primary Dx) [facility] Comment on above: Left leg pain (Prima ry Dx) Start: 07-15-2024 End: 07-15-2025 Basic metabolic 1998 panel - Serum or Plasma Basic metabolic panel Lab Routine Encounter for long-term current use of medication Expected: 07/15/2024 (Approximate), Expires: 07/15/2025 [facility] Work Phone: Comment on above: Expected: 07/15/2024 (Approximate), Expires: 07/15/2025 Start: 07-15-2024 End: 07-15-2025 CBC W Auto Differential panel - Blood CBC and differential Lab Routine Encounter for long-term current use of medication Expected: 07/15/2024 (Approximate), Expires: 07/15/2025 [facility] Comment on above: Expected: 07/15/2024 (Approximate), Expires: 07/15/2025 Start: 07-15-2024 End: 07-15-2025 DXA Skeletal system Views for bone density DEXA bone density Imaging Routine Osteopenia of neck of right femur Expected: 07/15/2024, Expires: 07/15/2025 [facility] Comment on above: Expected: 07/15/2024 , Expires: 07/15/2025 Start: 07-15-2024 End: 07-15-2025 Hepatic function 2000 panel - Serum or Plasma Hepatic function panel Lab Routine Encounter for long-term current use of medication Expected: 07/15/2024 (Approximate), Expires: 07/15/2025 [facility] Comment on above: Expected: 07/15/2024 (Approximate), Expires: 07/15/2025 Start: 07-15-2024 End: 07-15-2025 Lipid 1996 panel - Serum or Plasma Lipid panel Lab Routine Dyslipidemia (CMS/HCC) Expected: 07/15/2024 (Approximate), Expires: 07/15/2025 [facility] Comment on above: Expected: 07/15/2024 (Approximate), Expires: 07/15/2025 Start: 07-15-2024 End: 07-15-2025 Thyrotropin [Units/volume] in Serum or Plasma TSH Lab Routine Other fatigue Expected: 07/15/2024 (Approximate), Expires: 07/15/2025 [facility] Comment on above: Expected: 07/15/2024 (Approximate), Expires: 07/15/2025 Start: 07-15-2024 End: 07-15-2024 Patient encounter procedure 07/15/2024 8:00 AM EDT Office Visit [facility] [address] [place] [address] Pete Alcala MD [address] [place] [id number] Arrived [facility] Comment on above: Arrived Start: 07-12-2024 Influenza vaccination Influenza Vacc ine (#1) [facility] Start: 03-15-2024 Medicare Annual Wellness (AWV) Medicare Annual Wellness (AWV) [facility] Start: 1950 Screening for malign ant neoplasm of colon [facility] Patient Education Flu in adults - Discharge instructions [facility] Work Phone: XR Hip - left 3 Views XR hip lef t 2 or 3 views Imaging Routine Left leg pain 08/07/2024 11:00 AM EDT [facility] Work Phone: Immunizations Immunization Date Immunization Notes Care Provider Fa cility 06-26-2023 influenza virus vacc ine, unspecified formulation Pete Alcala MD Work Phone: [facility] Payers Date Payer Category Payer Medicare [id number] 1958 Medicare [id number] 1950 Unknown [id number] 2.16.84 0.1.599804.3.579.2.593 1950 Unknown [id number] 2.16.84 0.1.880752.3.579.2.593 1950 Unknown [id number] 2.16.84 0.1.845325.3.579.2.593 1950 Unknown [id number] 2.16.84 0.1.138571.3.579.2.593 1950 Unknown [id number] 2.16.84 0.1.087249.3.579.2.1259 1951 Unknown [id number] 2.16.84 0.1.950100.3.579.2.1258 1950 Unknown [id number] 2.16.84 0.1.973556.3.579.2.9 1950 Unknown [id number] 2.16.84 0.1.896752.3.579.2.1258 1951 Unknown [id number] 2.16.84 0.1.821535.3.579.2.1258 1951 Unknown [id number] 2.16.84 0.1.999204.3.579.2.1258 1951 Unknown [id number] 2.16.84 0.1.816785.3.579.2.1258 1951 Unknown [id number] 2.16.84 0.1.047744.3.579.2.1258 1950 Unknown [id number] 2.16.84 0.1.845360.3.579.2.9 1951 Unknown [id number] 2.16.84 0.1.114272.3.579.2.9 1950 Unknown [id number] 2.16.84 0.1.008158.3.579.2.9 1950 Unknown [id number] 2.16.84 0.1.272136.3.579.2.1259 Social History Date Type Detail Facility Start: 02-03-2024 Tobacco smoking status ORIS Never smoked tobacco [facility] Start: 02-03-2024 Tobacco use and exposure Smokeless tobacco non-user [facility] Start: 08-07-2024 End: 12-30-2024 Alcoholic beverage intake Lifetime non-drinker (finding) [facility] Start: 08-07-2024 End: 12-25-2024 History of Social function [facility] Start: 08-07-2024 End: 12-25-2024 Tobacco use panel [facility] Start: 1950 Sex assigned at Female [facility] Start: 07-22-2023 Gender identity Identifies as female gender (finding) [facility] Start: 07-22-2023 Sexual orientation Heterosexual (finding) [facility] Tobacco smoking stat us NHIS Unknown if ever smoked [facility] Work Phone: Start: 12-21-2024 Sex Female (finding) [facility] How often do you nee d to have someone help you when you read instructions, pamphlets, or other written material from your doctor or pharmacy [SILS] Never [facility] Do you belong to any clubs or organizations such as latter-day groups, unions, fraternal or athletic groups, or school groups? Yes [facility] Are you now , , , , never or living with a partner? [facility] How often to you hav e a drink containing alcohol? Never [facility] How hard is it for y ou to pay for the very basics like food, housing, medical care, and heating Somewhat hard [facility] Do you feel stress - tense, restless, nervous, or anxious, or unable to sleep at night because your mind is troubled all the time - these days [OSQ] To some extent [facility] (I/We) worried wheth er (my/our) food would run out before (I/we) got money to buy more. Never true [facility] In the past 12 month s, was there a time when you were not able to pay the mortgage or rent on time? No [facility] Clinical Notes 07-15-2024 to 02-16-2025 Renan Dennis, PhD - 02/16/2025 10:00 AM Max Alcala MD - 12/30/2024 9:33 AM Nabil Alcala MD - 12/30/2024 8:45 AM Nabil Alcala MD - 11/19/2024 11:29 AM EST Note Date & Type Note Facility 02-16-2025 History of Presen t illness Narrative Images from the original note were not included. Renan Dennis, PhD NEUROBEHAVIORAL STATUS EXAMINATION Christin Carrillo is a 74 y.o. female referred for neuropsychological evaluation to assist with facilitating and informing medical differential diagnosis and clinical decision-making. The following information was obtained during an interview with the patient, as well as review of available records. PRESENTING PROBLEM AND HISTORY Changes in memory over the past several months that patient feels are largely anxiety-related. Also had one isolated incident during which she had no recollection as to where she was at. Also reported that her thoughts occasionally disappear, she thinks too quickly, requires to reorganize thoughts at times, and fluctuating attention/concentration. Otherwise, remains independent in ADLs, household responsibilities, finances, medication, and driving. Less physically active but does continue to ride her bicycle. 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 Sleeping well overall. No pain complaints. No prior neurological history. 02/11/24 brain MRI nonacute with CSVID. 02/01/25 [facility] . Family neurological history includes seizures and possible dementia (mother). Psychiatric history notable for anxiety, managed by primary care provider. Denied any history of alcohol/substance abuse or smoking. Morongo language Armenian. Completed a bachelor's degree. 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 Resides with of 50 years and their youngest daughter. Three total children. MEDICAL HISTORY/MEDICATION: Past Medical History: Diagnosis Date AV block, 1st degree Chronic neck pain Dyslipidemia (CMS/HCC) Insomnia due to mental disorder Osteopenia of neck of right femur Palpitations Dr. Juju Sheppard Post-menopausal Seasonal allergic rhinitis due to pollen MEDICATIONS: Current Outpatient Medications Medication Instructions ALPRAZolam (XANAX) 0.25 mg, Oral, 3 times daily PRN calcitriol (ROCALTROL) 0.25 mcg, Daily ferrous sulfate 325 mg, Daily with breakfast latanoprost (Xalatan) 0.005 % ophthalmic solution INSTILL 1 DROP INTO BOTH EYES EVERY EVENING [facility] Natural Products (Glucosamine Chond Complex/MSM) tablet Orally Multiple Vitamins-Minerals (MULTIVITAMIN WOMEN 50+ PO) Take by mouth vitamin C 1,000 mg, Daily INITIAL IMPRESSION AND PLAN: Memory loss, concentration deficit, anxiety, and possible family history of dementia: The patient will be scheduled for neuropsychological assessment, which will include tests for memory, reasoning, language, problem-solving, attention, and mood. Thank you for allowing me to participate in the care of this individual. Please contact me with any questions at [phone]. documented in this encounter [facility] 12-30-2024 History of Presen t illness Narrative Associated Problem(s): Influenza A Recent influenza but symptoms have resolved. Patient did receive flu vaccine in fall. Monitor. Images from the original note were not included. Subjective Patient ID: Christin Carrillo is a 74 y.o. female who presents for Follow-up (Urgent care f/u). Urgent care follow up from 12/21 for influenza A. Developed cough and SOB for several days prior. Body aches and chills but no temp. Severe fatigue and run down. Concerned of covid or influenza and to urgent care. Positive for influenza A. Patient was outside range for tamiflu and told to treat symptoms. Used OTC for several days then improved. Today feels well. No further cough or SOB. Review of Systems Respiratory: Negative for cough, [...] Assessment/Plan Problem List Items Addressed This Visit Influenza A - Primary Recent influenza but symptoms have resolved. Patient did receive flu vaccine in fall. Monitor. documented in this encounter [facility] 11-19-2024 History of Presen t illness Narrative [...] performances. Recently had episode where drove from [place] to [place] and had hard time finding latter-day. At one point during performance was supposed [...] referral to Neurology documented in this encounter [facility] 09-15-2024 History of Presen t illness Narrative [...] requiring urgent evaluation. documented in this encounter [facility] 08-28-2024 History of Presen t illness Narrative [...] DROP INTO BOTH EYES EVERY EVENING DIRECTED [facility] Natural Products (Glucosamine Chond Complex/MSM) tablet Orally [...] requiring urgent evaluation. documented in this encounter [facility] 08-07-2024 History of Presen t illness Narrative [...] SURGERY Left DENTAL IMPLANT 2021 DENTAL SURGERY NM KNEE SCOPE,DIAGNOSTIC Left 2014 Dr. Orourke TRIGGER [...] DROP INTO BOTH EYES EVERY EVENING [facility] Natural Products (Glucosamine Chond Complex/MSM) tablet Orally [...] requiring urgent evaluation. documented in this encounter [facility] 07-15-2024 History of Presen t illness Narrative [...] in this encounter [facility] Evaluation note Diagnosis First degree atrioventricular block- [...] patella, left [facility] Diagnosis First degree atrioventricular block- Primary Seasonal [...] right shoulder [facility] Diagnosis Insomnia related to another mental disorder- Primary Unspecified nonpsychotic mental disorder First degree atrioventricular block DDD (degenerative disc disease), cervical Degeneration of cervical intervertebral disc Dyslipidemia (CMS/HCC) Other and unspecified hyperlipidemia Encounter for long-term current use of medication Other fatigue Osteopenia of neck of right femur [facility] Diagnosis Left leg pain- Primary Pain in soft tissues of limb [facility] Diagnosis First degree atrioventricular block- Primary Seasonal [...] Memory loss [facility] Diagnosis Onset Date Resolution Status Admit Date Influenza A acute December 9:08am Contact with and (suspected) exposure to covid-19 noneactive December 21 9:08am [facility] Work Phone: Evaluation note* Diagnosis First degree atrioventricular block- Primary Seasonal [...] annual wellness visit, subsequent- Primary Memory loss Anxiety- Primary Anxiety state, unspecified [facility] Diagnosis First degree atrioventricular block- Primary Seasonal [...] annual wellness visit, subsequent- Primary Memory loss Influenza A- Primary Influenza with other respiratory manifestations [facility] Diagnosis First degree atrioventricular block- Primary Seasonal [...] annual wellness visit, subsequent- Primary Memory loss Influenza A- Primary Influenza with other respiratory manifestations Mild cognitive impairment- Primary Mild cognitive impairment, so stated Concentration deficit Anxiety Anxiety state, unspecified Family history of dementia Family history of other neurological diseases [facility] N[facility]* Consultation (Routine) - Closed Specialty Diagnoses / Procedures Referred By Kristie espinosa Referred To Contact Psychology Diagnoses Mild cognitive impairment Procedures NM OFFICE/OUTPATIENT [facility] 60 MINUTES Sally Pinzon DO [address] [place] [address] Phone: tel: fax: Renan Dennis, PhD [address] [place] [phone] Phone: tel: fax: Referral ID Status Reason Start Date Expiration Date V isits Requested Visits Authorized [id number] Closed Specialty Services Required 02/01/2025 07/31/2025 1 1 [facility] Summary Purpose Family History No Family History Records FoundNo Family History Records Found Advance Directives No Advanced Directives Records Found Advance Directive Response Recorded Date/ Time Advance Directives No December 9:06am Chief Complaint and Reason for Visit Chief Complaint Admit Date Cough, Congestion December 21, 2024 9:08am Reason for Visit Admit Date Influenza A December 21, 2024 9:08am Contact with and (suspected) exposure to covid-19 December 21, 2024 9:08am Additional Source Comments INFORMATION SOURCE (unrecogn ized section and content) DATE CREATED AUTHOR 03/25/2023 [facility] DATE CREATED AUTHOR AUTHOR'S ORGANIZ ATION 02/17/2025 [facility] Care Teams (unrecognized sec tion and content) Family Practice Physician Relationship Specialty Start Date End Date Pete Alcala MD [address] [place] [phone] PCP - General Family Medicine 12/17/23 Family Practice Physician Relationship Specialty Start Date End Date Pete Alcala MD [address] [place] [phone] PCP - General Family Medicine 12/17/23 Family Practice Physician Relationship Specialty Start Date End Date Pete Alcala MD [address] [place] [phone] PCP - General Family Medicine 12/17/23 Family Practice Physician Relationship Specialty Start Date End Date Pete Alcala MD [address] [place] [phone] PCP - General Family Medicine 12/17/23 Family Practice Physician Relationship Specialty Start Date End Date Pete Alcala MD [address] [place] [phone] PCP - General Family Medicine 12/17/23 Family Practice Physician Relationship Specialty Start Date End Date Pete Alcala MD [address] [place] [phone] PCP - General Family Medicine 12/17/23 Family Practice Physician Relationship Specialty Start Date End Date Pete Alcala MD [address] [place] [phone] PCP - General Family Medicine 12/17/23 Family Practice Physician Relationship Specialty Start Date End Date Pete Alcala MD [address] [place] [phone] PCP - General Family Medicine 12/17/23 Family Practice Physician Relationship Specialty Start Date End Date Pete Alcala MD [address] [place] [phone] PCP - General Family Medicine 12/17/23 Team Status: Active Member Role Status Dates Pete Alcala MD Primary Care Provider Active Team Status: Inactive Member Role Status Dates Pete Alcala MD Primary Care Provider Active S tart: December 21, 2024 End: December 21, 2024 Elsy Ibrahim APRN Attending Provider Active S tart: December 21, 2024 End: December 21, 2024 Family Practice Physician Relationship Specialty Start Date End Date Pete Alcala MD [address] [place] [phone] PCP - General Family Medicine 12/17/23 Pete Alcala MD [address] [place] [phone] PCP - ACO Reach 12/18/24 Family Practice Physician Relationship Specialty Start Date End Date Pete Alcala MD [address] [place] [phone] PCP - General Family Medicine 12/17/23 Pete Alcala MD [address] [place] [address] PCP - ACO Reach 12/18/24 Family Practice Physician Relationship Specialty Start Date End Date Pete Alcala MD [address] [place] [phone] PCP - General Family Medicine 12/17/23 Pete Alcala MD [address] [place] [phone] PCP - ACO Reach 12/18/24 Family Practice Physician Relationship Specialty Start Date End Date Pete Alcala MD [address] [place] [phone] PCP - General Family Medicine 12/17/23 Pete Alcala MD [address] [place] [phone] PCP - ACO Reach 12/18/24 Sally Pinzon DO [address] [address] Referring Physician Neurology 02/01/25 Family Practice Physician Relationship Specialty Start Date End Date Pete Alcala MD [address] [place] [phone] PCP - General Family Medicine 12/17/23 Pete Alcala MD [address] [place] [address] PCP - ACO Reach 12/18/24 Sally Pinzon DO [address] [place] [address] Referring Physician Neurology 02/01/25 Reason for Visit (unrecogniz ed section and content) Reason Comments Pain Reason Comments Pain Reason Comments Follow-up 6m Anxiety Reason Onset Date Comments Med Refill 12/23/2024 Reason Comments Follow-up Urgent care f/u Goals (unrecognized section and content) Goals may be documented in a n alternate section FOR RECORDS PERTAINING TO PATIENTS WHO ARE [...] BE BASED ON THE PRIMARY CLINICAL RECORDS. [employer] provides no warranty or guarantee of the accuracy or completeness of information in this document.
[2025-03-03 04:07] LABS: Vitamin B12 702 pg/mL (232-1245)
== END 2025-03-01 16:23 | disposition home or self-care (01) ==
PROVIDERS: PCP Family Medicine; Visit Provider Psychiatry & Neurology Neurology
DX: G31.84 Mild cognitive impairment of uncertain or unknown etiology (principal)
CPT/HCPCS: 36415; 82607

== ENCOUNTER 2025-09-16 11:14 | Outpatient (OUT) | payer MEDICARE, SELFPAY ==
--- OUTSIDE RECORDS SUMMARY | 2025-09-13 06:18 | XMS_ITS | Continuity of Care Document ---
Author Organization [facility] Address [address] [place] [address] Phone Care Team Providers Care Distilling Department Supervisor Name Role Phone Pete Orantes MD Primary Care Provider [phone] Kirsty Toth-C Attending Provider + Pete Orantes MD Attending Provider [phone] [facility] Care Teams Patient Care Team Team Status: Active Member Role/Relationship Status Dates Pete Orantes MD Primary Care Provider Active Visit Care Team Team Status: Inactive Member Role/Relationship Status Dates Pete Orantes MD Primary Care Provider Active S tart: July 22, 2025 End: July 22, 2025LATONIA Sapp-CAttending ProviderActive Start: July 22, 2025 End: July 22, 2025 Patient Care Team Team Status: Inactive Member Role/Relationship Status Dates Pete Orantes MD Primary Care Provider Active S tart: September 13, 2025 End: September 13, 2025[facility] YAAKOV [facility] ProviderActiveStart: September 13, 2025 End: September 13, 2025 Chief Complaint and Reason for Visit Chief Complaint Admit Date right shoulder pain September 13, 2025 1 0:02am Reason for Visit Admit Date Mild cognitive impairment July 9:43am Anxiety July 22, 2025 9:43am Allergies, Adverse Reactions, Alerts Allergen Type Severity Reaction Last Updated Verified Status Sulfa (Sulfonamide Antibiotics) Allergy Unknown Unknown Reaction September 13, 2025 10:25am Yes Active Social History Smoking Status Status Start Date End Date Date of Observa tion Never smoked tobacco (finding) September 13, 2025 10:27am Observation Status Observation Response Date of Response Legal Sex Female (finding) [facility] 1950 Family History Relationship Condition Age at Onset Recorded Date/T karina mother Hypertension Unknown High blood cholesterolUnknownNon-Hodgkin lymphomaUnknownfatherHypertension UnknownMalignant neoplasmUnknownmaternal grandmotherDisorder of kidneyUnknown Problems Active Problems Problem Diagnosis/Recorded Date Onset Date Stat Medicare annual wellness vis it, subsequent September 13, 2025 11:01am Unknown Active Insomnia secondary to anxiety September 13, 2025 11:03 am Unknown Active First degree atrioventricular block July 22 11:13am Unknown Active Mild cognitive impairment July 22, 2025 7:20am Unknown Active Encounter for long-term (cur rent) use of medications September 13, 2025 11:01am Unknown Active DDD (degenerative disc disea se), cervical July 22, 2025 11:13am Unknown Active Inactive/Resolved Problems Problem Diagnosis/Recorded Date Onset Date Stat Influenza A December 21, 2024 9:34am Unknown R esolved Anxiety July 22, 2025 11:28am Unknown Resolved Medications Medication Status Dose Units Route Directions Qty Days Refills S tart Date Stop Date End Date Reason(s) Instructions Adherence Prednisone 50 mg tablet Active 50 MG PO Daily 6 0September 13, 2025 12:00amComplies with drug therapyLatanoprost 0.005 % drops ActiveDROPSOPHTHALMICFebruary 2024 12:00amComplies with drug therapy Alprazolam 0.25 mg tabletActive0.25MGPOThree times daily as neededSept2024 11:00pmComplies with drug therapyCalcitriol 0.25 mcg capsuleActive 0.25MCGPODailySept2024 11:00pmComplies with drug therapyFerrous Sulfate 325 mg (65 mg iron) hyfkrqAdxffo409AXLGDxxtwHjlhxwdhe 10th, 2025 11:00pm Complies with drug ggwagshZa-Tgr-Sqoaz-Calcium Carb-K1 (Women's 50 Plus Multivitamin) 400 mcg-500 mg calcium-20 mcg tabletActiveTABPOSept2024 11:00pmComplies with drug therapy Vital Signs Vital Reading Result Reference Range Collection Date/Time Height 69 [in_i] July 22, 2025 8:94guJtpxsx59.29 kgSept2024 8:50amHeart Rate75 /gyl63-880Wkbixtszk 11th, 2025 8:50amOxygen saturation by Pulse vqeugqyv58 % 95-100Sept2024 8:50amBP Komvhuuc870 mm[Hg]100-140Sept2024 8:50amBP Pszofyhgq77 mm[Hg]60-100Sept2024 8:50amBMI (Body Mass Index)24.5 kg/z4Ywvvgkwhm2024 8:67fqUuvses89 [in_i]September 13, 2025 10:53kvUovdba83.84 kgNov2024 10:24amBody Gxnmuopxohc29.3 [degF] 97.6-99.0Nov2024 10:24amHeart Rate80 /jfk77-724Rejuyiqr 3rd, 2025 10:24amRespiratory rate18 /ujw27-29Qfswboyt 3rd, 2025 10:24amOxygen saturation by Pulse cnamkhgu62 %95-100Nov2024 10:24amBP Pbhxoqlc533 mm[Hg] 100-140Nov2024 10:24amBP Nybrcnpwc14 mm[Hg]60-100Nov2024 10:24amBMI (Body Mass Index)25.0 kg/w6Xncdvhjz2024 10:24am Advance Directives Advance Directive Response Recorded Date/ Time Advance Directives No December 9:06am Insurance Providers Guarantor Christin Carrillo Address [address] [facility] [address]Ijfgior Info.Home Phone: Coverage Status Update:2025 Payer Group Member ID Coverage Type Subscriber Relationship to Subscriber Effective Date Expiration Date Medicare [id number] A Mendoza Id: [id number] [address] [address] Home Phone: self Encounters Encounter Location(s) Arrival/Admit Date Discharge/Departure Date Discharge/Departure Disposition Provider(s) Departed Physician/ Provider Office Visit -[facility] Neurology Stalin July 22, 2025 9:43am July 22, 2025 11:04am Discharged to home care or self care (routine discharge) Kirsty Toth APRN-VIAL GAUGER-C Departed Physician/ Provider Office Visit -[facility] Family Medicine Braden September 13, 2025 10:02am September 13, 2025 11:17am Discharged to home care or self care (routine discharge) Pete Orantes MD Recent Diagnosis Onset Date Admit Date Mild cognitive impairment Unknown 2024 9:43am Anxiety Unknown July 22, 2025 9:43am Assessments Diagnosis Onset Date Resolution Status Admit Date Mild cognitive impairment chronicSept2024 9:43amAnxietyinactiveSept2024 9:43am Plan of Treatment Author Kirsty Toth [facility]Aut[facility] centerSept[facility]24 11:50amMs. Gerardo is a 74-year-old female who reports chronic memory difficulty with insidious onset. She remains independent with all ADLs, medication management, and finance management. She believes her remote memory is intact but reports some difficulty with recent recall and losing her train of thought during conversations occasionally. [place] cognitive assessment score today is 19/30 (stable when compared to prior MOCA score from 02/01/2025). TSH and vitamin B12 were within normal limits. MRI brain on 02/10/2025 revealed some nonspecific white matter changes but was otherwise unremarkable. Neuropsychological evaluation on 03/04/2025 was limited due to variable levels of attention, but findings were most consistent with mild cognitive impairment exacerbated by fluctuating attention. Neuropsych recommended repeat neuropsychological evaluation in 12-18 months. There is a positive family history of Alzheimer's in the patient's mother. PLAN: - I educated the patient on mild cognitive impairment - I encouraged the patient to try to ensure adequate sleep (at least 7-8 hours per night), continued learning, healthy diet such as the Mediterranean diet, and regular physical exercise as tolerated - Compensatory memory tools discussed - We discussed that I believe history of anxiety and depression could be negatively impacting the patient's cognitive function. She also has a history of some traumatic events such as her father committing suicide. I recommended referral to behavioral health to help improve management of psychiatric conditions. The patient was agreeable - We discussed possible benefits versus adverse effects of acetylcholinesterase inhibitors. The patient voices no interest in trying one of these currently. Would have to be used with caution in the future should we choose to proceed with initiation given her history of first degree AV block - Limit driving See above. Diagnoses and treatment plan discussed. The patient verbalizes understanding and is agreeable to the plan. All questions answered. Future Tests Future scheduled test information is unavailable Pending Tests Pending diagnostic test information is unavailable Future Visits Future appointment information is unavailable Future Procedures Future procedure information is unavailable Future Medications Future medication information is unavailable Patient Instructions Patient instructions are unavailable
--- OUTSIDE RECORDS SUMMARY | 2025-09-16 11:19 | XMS_ITS | Clinical Summary ---
Author Organization [facility] Address [id number] [address] [place] [address] Care Team Providers Care Coil Inspector Name Role Phone Pete Orantes MD Primary Care Provider [phone] Allergies No known active allergies Medications MedicationSigDispense QuantityRefillsLast FilledStart DateEnd DateStatus calcium carbonate (OS-JOSE ENRIQUE) 600 mg (1,500 mg) tablet Take 600 mg by mouth 2 (two) times a day with meals.Active pkpmnijw-mszv-WM-calcium &mins (THERAGRAN-M) 9 mg iron-400 mcg tablet Take 1 tablet by mouth daily.Active amLODIPine (NORVASC) 5 mg tablet Take 5 mg by mouth daily.Active ascorbic acid, vitamin C, (ascorbic acid with kelly hips) 500 mg tablet Take 500 mg by mouth daily.Active glucosamine-chondroitin 500-400 mg tablet Take 1 tablet by mouth 3 (three) times a day.Active Social History Tobacco UseTypesPacks/DayYears UsedDateSmoking Tobacco: NeverSmokeless Tobacco: NeverAlcohol UseStandard Drinks/WeekCommentsNo0 (1 standard drink = 0.6 oz pure alcohol)ChildcareAnswerDate TegcdzwqCvxpiiawhKnkwscp50/12/2019EmploymentAnswer Date EgwcrdebZtzbisjtkxHdoyxrz36/12/2019Purpose - LifeAnswerDate RecordedPurpose and direction in fvkcLmvntzx41/11/2021CommentsUnknownSex and Gender InformationValueDate RecordedSex Assigned at BirthNot on fileLegal SexFemale 06/16/2015 11:29 AM EDTGender IdentityNot on fileSexual OrientationNot on file Last Filed Vital Signs Vital SignReadingTime TakenCommentsBlood Anyucevf056/7303/18/2018 7:37 AM EDT Epgqy762103/18/2018 9:57 AM LCYDahfwnckqeu23.6 ??C (97.9 ??F)03/18/2018 7:37 AM EDTRespiratory Zfsy269403/18/2018 7:37 AM EDTOxygen Xgjhfljmsm49%03/18/2018 9:57 AM EDTInhaled Oxygen Concentration--Zxmddu66.8 kg (165 lb)03/18/2018 7:37 AM EDT Mzmlyt431.7 cm (5' 8 )03/18/2018 7:37 AM EDTBody Mass Index25.0903/18/2018 7:37 AM EDT Plan of Treatment Not on file Medical Devices Not on file Insurance * Guarantor: Christin Carrillo AAccount TypeRelation to PatientDate of BirthPhone Billing AddressPersonal/SlkivzSprd96/01/1951 [phone] (Work) [address] [place] [address] Care Teams Team MemberRelationshipSpecialtyStart DateEnd Date Pete Orantes MD PCP - GeneralFamily Medicine02/04/18
--- OUTSIDE RECORDS SUMMARY | 2025-09-16 11:19 | XMS_ITS | Clinical Summary ---
Author Organization [facility] Address [address] [place] [address] Care Team Providers Care Cork Insulation Setter Name Role Phone Pete Orantes MD Primary Care Provider [phone] Pete Orantes MD Unavailable Maykel Pinzon DO Unavailable [phone] Allergies Active AllergyReactionsCriticalityNoted DateComments Sulfamethoxazole-Ctpjtmvkbrnb71/09/2024 Myalgia, lightheaded Sulfa BkhbnnuppjhLmgzv20/12/2023 Medications MedicationSigDispense QuantityRefillsLast FilledStart DateEnd DateStatus latanoprost (Xalatan) 0.005 % ophthalmic solution INSTILL 1 DROP INTO BOTH EYES EVERY EVENING PCTHRYUA55/26/2023ctive Misc Natural Products (Glucosamine Chond Complex/MSM) tablet OrallyActive Multiple Vitamins-Minerals (MULTIVITAMIN WOMEN 50+ PO) Take by mouthActive Ascorbic Acid (vitamin C) 1000 MG tablet Take 1,000 mg by mouth in the morning.Active calcitriol (Rocaltrol) 0.25 MCG capsule Take 0.25 mcg by mouth DailyActive ferrous sulfate 325 (65 Fe) MG EC tablet Indications:Mild cognitive impairmentTake 325 mg by mouth in the morning. Take with meals. Do not crush, chew, or split..Active ALPRAZolam (Xanax) 0.25 MG tablet Indications:AnxietyTake 1 tablet (0.25 mg) by mouth 3 (three) times a day as needed for anxiety for up to 20 days 60 tablet 5Active Active Problems ProblemNoted DateDiagnosed DateMedicare annual wellness visit, subsequent 11/19/2024 Assessment & Plan (11/19/2024 11:29 AM EST): Due for labs. Discussed proper diet and regular aerobic exercise. Need aerobic exercise 5-6 days a week for 30 minutes at a time. Smaller portions and limit total calories. Colonoscopy every 10 years. Tetanus every 10 years. Advised not to smoke. Insomnia secondary to mkcpvvn3411/19/2024 Assessment & Plan (05/20/2025 10:35 AM EDT): Sleeping well with xanax and continue. Mild cognitive ijagifwita37/09/2025 Assessment & Plan (05/20/2025 10:35 AM EDT): Symptoms stable and follow with neurology. Assessment & Plan (11/19/2024 11:29 AM EST): Recently with increased forgetfulness and mom had dementia. Refer to neurology for evaluation. Encounter for long-term current use of xyocuknuao23/04/2024First degree atrioventricular block02/03/2024 Assessment & Plan (05/20/2025 10:35 AM EDT): No palpitations and monitor. Assessment & Plan (07/15/2024 8:41 AM EDT): No palpitations and monitor. Assessment & Plan (02/03/2024 9:45 AM EDT): No palpitations and monitor. DDD (degenerative disc disease), uywmcmfw82/25/2024 Assessment & Plan (05/20/2025 10:35 AM EDT): Occasional pain but mild and use OTC PRN. Assessment & Plan (07/15/2024 8:41 AM EDT): Occasional pain but mild and use OTC PRN. Assessment & Plan (02/03/2024 9:45 AM EDT): Occasional pain but mild and use OTC PRN. Zkzwqxhcfxfh94/25/2024Osteopenia of neck of right femur02/03/2024 Resolved Problems ProblemNoted DateDiagnosed DateResolved DateInfluenza A0507/08/2025 Assessment & Plan (12/30/2024 9:33 AM EST): Recent influenza but symptoms have resolved. Patient did receive flu vaccine in fall. Monitor. Other iiyjidj86/07/2025Insomnia related to another mental disorder /07/2025 Assessment & Plan (07/15/2024 8:41 AM EDT): Sleeping well with medication and use PRN. Assessment & Plan (02/03/2024 9:45 AM EDT): Sleeping well with medication and use PRN. Seasonal allergic rhinitis due to avwsmp77/07/2025 Assessment & Plan (02/03/2024 9:45 AM EDT): Symptoms controlled with medication and continue. Family History Medical HistoryRelationNameCommentsCancerFatherHypertensionFatherKidney disease Maternal GrandmotherHyperlipidemiaMotherHypertensionMotherNon-hodgkins lymphoma MotherCancerOtherCoronary artery diseaseOtherHypertensionOtherNo Known Problems SisterRelationNameStatusCommentsBrotherDeceasedFatherDeceasedMaternal GrandfatherDeceasedMaternal GrandmotherDeceasedMotherDeceasedOtherPaternal GrandfatherDeceasedPaternal GrandmotherDeceasedSisterAlive Social History Tobacco UseTypesPacks/DayYears UsedDateSmoking Tobacco: NeverSmokeless Tobacco: NeverAlcohol UseStandard Drinks/WeekCommentsNever0 (1 standard drink = 0.6 oz pure alcohol)B1300 Health LiteracyAnswerDate RecordedHow often do you need to have someone help you when you read instructions, pamphlets, or other written material from your doctor or pharmacy?Never02/14/2025Social Connection and Isolation PanelAnswerDate RecordedIn a typical week, how many times do you talk on the phone with family, friends, or neighbors?More than three times a week 12/25/2024How often do you get together with friends or relatives?More than three times a week12/25/2024How often do you attend jehovah's witness or restorationism services?More than 4 times per year12/25/2024Do you belong to any clubs or organizations such as jehovah's witness groups, unions, fraternal or athletic groups, or school groups?Yes12/25/2024How often do you attend meetings of the clubs or organizations you belong to?More than 4 times per year12/25/2024re you , , , , never , or living with a partner? 12/25/2024UDIT-CAnswerDate RecordedQ1: How often do you have a drink containing alcohol?Never12/25/2024Q2: How many drinks containing alcohol do you have on a typical day when you are drinking?Patient does not drink12/25/2024Q3: How often do you have six or more drinks on one occasion?Never12/25/2024Overall Financial Resource Strain (CARDIA)AnswerDate RecordedHow hard is it for you to pay for the very basics like food, housing, medical care, and heating?Somewhat hard 12/25/2024PHQ-2AnswerDate RecordedPatient Health Questionnaire-2 Score0 11/19/2024[place] [facility] [employer] [facility] - Occupational Stress QuestionnaireAnswerDate RecordedDo you feel stress - tense, restless, nervous, or anxious, or unable to sleep at night because yourmind is troubled all the time - these days?To some bhaugh2712/25/2024Exercise Vital SignAnswerDate Recorded On average, how many days per week do you engage in moderate to strenuous exercise (like a brisk walk)?3 days12/25/2024On average, how many minutes do you engage in exercise at this level?60 min12/25/2024Hunger Vital SignAnswerDate RecordedWithin the past 12 months, you worried that your food would run out before you got the money to buymore.Never true12/25/2024Within the past 12 months, the food you bought just didn't last and you didn't have money to get more.Never true12/25/2024PRAPARE - TransportationAnswerDate RecordedIn the past 12 months, has lack of transportation kept you from medical appointments or from getting medications?No12/25/2024In the past 12 months, has lack of transportation kept you from meetings, work, or from getting things needed for daily living?No12/25/2024Housing Stability Vital SignAnswerDate RecordedIn the last 12 months, was there a time when you were not able to pay the mortgage or rent on time?No12/25/2024In the past 12 months, how many times have you moved where you were living?t any time in the past 12 months, were you homeless or living in a retirement (including now)?No12/25/2024Comments UnknownSex and Gender InformationValueDate RecordedSex Assigned at BirthFemale 07/22/2023 3:43 PM EDTLegal RtaQmdtce12/15/2023 6:35 PM EDTGender IdentityFemale 07/22/2023 3:43 PM EDTSexual LxxiqnpuzekQximwxnx05/11/2023 3:43 PM EDT Last Filed Vital Signs Vital SignReadingTime TakenCommentsBlood Hiojgzuj986/8207 9:57 AM EDT Almji755405/20/2025 9:57 AM ADDJnmzwyeyjws82.3 ??C (97.3 ??F)05/20/2025 9:57 AM EDTRespiratory Ezuo849205/20/2025 9:57 AM EDTOxygen Fraojagrcl35%05/20/2025 9:57 AM EDTInhaled Oxygen Concentration--Jntelp64.7 kg (169 lb)05/20/2025 9:57 AM EDT Jxnoso692.7 cm (5' 8 )05/20/2025 9:57 AM EDTBody Mass Index25.7005/20/2025 9:57 AM EDT Plan of Treatment Health MaintenanceDue DateLast DoneCommentsCT Ndvvubqodrmt59/01/1951FIT-DNA 1950FIT1950FOBT1950 5365Xocenlsqbszbw08/01/1951OVID-19 Vaccine ( season)/12/2021, 09/12/2021, 01/31/2021, Additional history existsInfluenza Vaccine (#1)/, 06/26/2023, 08/29/2022, Additional history qtcgluYoxxirtvd66/04/202511/02/2024, 09/13/2023 Medicare Annual Wellness (AWV)601/07/2025, 03/15/2023olonoscopy /olorectal Cancer Phxawpscy60/05/2033neumococcal Vaccine: 65+ YzydsPggsfruhd64/15/2018, 08/08/2017 Procedures Procedure NamePriorityDate/TimeAssociated DiagnosisCommentsMM TOMOSYNTHESIS SCREENING BI09/14/2024 11:22 AM EST from Last 3 Months or Most Recently Relevant to Health Maintenance Results * MM TOMOSYNTHESIS SCREENING BI (09/14/2024 11:22 AM EST)Anatomical Region LateralityModalityOtherSpecimen (Source)Anatomical Location / Laterality Collection Method / VolumeCollection TimeReceived Time09/14/2024 11:22 AM EST Narrative 09/14/2024 11:[address] [facility] ?[address] ? [place] [address] ? Mammography Report ? Signed ? Patient: DANTE CARRILLO ?MR#: [id number] ?? : 1950 ?Acct:[id number] ?? Age/Sex: 73 / F ?ADM Date: 09/14/24 ?? Loc: MAMMO ? Attending Dr: Pete Orantes M.D. ? Ordering Physician: Pete Orantes M.D. ?Results: ? Date of Service: 09/14/24 ?Follow Up: ? Procedure(s): MM tomosynthesis screening BI ?? Accession Number(s): [id number] ? cc: Pete Orantes M.D. ? Patient Name: ? DANTE CARRILLO ? MR#: [id number] ? : 1950 ? Exam Date: 09/14/2024 ?? Ordering Doctor: DR Pete Orantes . ? RADIOLOGY REPORT ? PROCEDURE: ? MM TOMOSYNTHESIS SCREENING BI ? COMPARISON: ? MM TOMOSYNTHESIS SCREENING BI, 09/13/2023. ??MG MAMM SCREEN 3D ?? ZAYRA CAD, 09/10/2022. ? INDICATIONS: ? Screening ? Calculator Name ? NCI Breast Cancer Risk Assessment Tool ?? 5 Year Breast Cancer Risk ? 1.80% ?? Lifetime Breast Cancer Risk ? 4.60% ?? Personal Breast Cancer ?No ?? Personal Ovarian Cancer ? No ?? Treatments ? None ?? Family Cancers ? Mother with non hodgekins lymphoma cancer at age ??80. ? LOCATION: ? [facility] ? BREAST COMPOSITION: ? The breasts are heterogeneously dense,which may ?? obscure small masses. ? FINDINGS: ? DIAGNOSTIC CATEGORY 2--BENIGN FINDING. NO CHANGE FROM COMPARISON. ? Scattered benign-appearing calcifications are present. ??Scattered ?? benign-appearing lymph nodes are present. ? RIGHT BREAST: ??No significant suspicious finding. ? LEFT BREAST: ??No significant suspicious finding. ? RECOMMENDATIONS: ? ROUTINE MAMMOGRAM AND CLINICAL EVALUATION IN 12 MONTHS. ? PLEASE NOTE: ??A NORMAL MAMMOGRAM DOES NOT EXCLUDE THE POSSIBILITY OF BREAST ?? CANCER. ??A CLINICALLY SUSPICIOUS PALPABLE LUMP SHOULD BE BIOPSIED. ? Dictated by: Nader Zendejas MD on 09/14/2024 at 11:20 ? Approved by: Nader Zendejas MD on 09/14/2024 at 11:22 ? Dictated By: ?Nader Zendejas M.D. ? Signed By: ?09/14/241122 ? DD/ 1122 ? TD/TT: ? Nail Polish Brush Machine Feeder: Procedure Note Radiology, Radiologist, MD - 09/14/2024 [place] [address] Mammography Report Signed Patient: DANTE CARRILLO AMR#: [id number] : 1950cct:[id number] Age/Sex: 73 / FADM Date: 09/14/24 Loc: MAMMO Attending Dr: Pete Orantes M.D. Ordering Physician: Pete Orantes M.D.Results: Date of Service: 09/14/24Follow Up: Procedure(s): MM tomosynthesis screening BI Accession Number(s): [id number] cc: Pete Orantes M.D. Patient Name: DANTE CARRILLO MR#: [id number] : 1950 Exam Date: 09/14/2024 Ordering Doctor: DR Pete Orantes . RADIOLOGY REPORT PROCEDURE: MM TOMOSYNTHESIS SCREENING BI COMPARISON: MM TOMOSYNTHESIS SCREENING BI, 09/13/2023. MG MAMM SKBWZY0U ZAYRA CAD, 09/10/2022. INDICATIONS: Screening Calculator Name NCI Breast Cancer Risk Assessment Tool 5 Year Breast Cancer Risk 1.80% Lifetime Breast Cancer Risk 4.60% Personal Breast Cancer No Personal Ovarian Cancer No Treatments None Family Cancers Mother with non hodgekins lymphoma cancer at age 80. LOCATION: [facility] BREAST COMPOSITION: The breasts are heterogeneously dense,which may obscure small masses. FINDINGS: DIAGNOSTIC CATEGORY 2--BENIGN FINDING. NO CHANGE FROM COMPARISON. Scattered benign-appearing calcifications are present. Scattered benign-appearing lymph nodes are present. RIGHT BREAST: No significant suspicious finding. LEFT BREAST: No significant suspicious finding. RECOMMENDATIONS: ROUTINE MAMMOGRAM AND CLINICAL EVALUATION IN 12 MONTHS. PLEASE NOTE: A NORMAL MAMMOGRAM DOES NOT EXCLUDE THE POSSIBILITY OFBREAST CANCER. A CLINICALLY SUSPICIOUS PALPABLE LUMP SHOULD BE BIOPSIED. Dictated by: Nader Zendejas MD on 09/14/2024 at 11:20 Approved by: Nader Zendejas MD on 09/14/2024 at 11:22 Dictated By: Nader Zendejas M.D. Signed By:09/14/24 1123 DD/ 1122 TD/TT: Nail Polish Brush Machine Feeder: Authorizing ProviderResult TypeResult StatusMarc Naderer MDCLINISYNC IMAGING Final Result from Last 3 Months or Most Recently Relevant to Health Maintenance Insurance Care Teams Team MemberRelationshipSpecialtyStart DateEnd Date Pete Orantes MD PCP - GeneralFamily Medicine12/17/23 Pete Orantes MD [address] [place] [address] PCP - ACO Reach12/18/24 Maykel Pinzon DO [address] [place] [address] Referring PhysicianNeurology02/01/25
--- OUTSIDE RECORDS SUMMARY | 2025-09-16 11:19 | XMS_ITS | Encounter Summary ---
Author Organization [facility] Address [address] [place] [address] Care Team Providers Care Clamp Truck Driver Name Role Phone Pete Orantes MD Primary Care Provider [phone] Pete Orantes MD Unavailable Maykel Pinzon DO Unavailable [phone] Encounter Details DateTypeDepartmentCare Team (Latest Contact Info)Wfzkcbzbieb15/04/2024Clinisync Result Encounter [facility] External Department Unsolicited Pete Orantes MD [address] [place] [phone] Social History Tobacco UseTypesPacks/DayYears UsedDateSmoking Tobacco: NeverSmokeless Tobacco: NeverAlcohol UseStandard Drinks/WeekCommentsNever0 (1 standard drink = 0.6 oz pure alcohol)B1300 Health LiteracyAnswerDate RecordedHow often do you need to have someone help you when you read instructions, pamphlets, or other written material from your doctor or pharmacy?Never12/25/2024Social Connection and Isolation PanelAnswerDate RecordedIn a typical week, how many times do you talk on the phone with family, friends, or neighbors?More than three times a week 12/25/2024How often do you get together with friends or relatives?More than three times a week12/25/2024How often do you attend gnosticism or mormon services?More than 4 times per year12/25/2024Do you belong to any clubs or organizations such as gnosticism groups, unions, fraternal or athletic groups, or [...] heating?Somewhat hard 12/25/2024PHQ-2AnswerDate RecordedPatient Health Questionnaire-2 Score0 11/19/2024[facility] [place] [facility] - Occupational Stress QuestionnaireAnswerDate RecordedDo you feel stress - tense, restless, nervous, or anxious, or unable to sleep at night because yourmind is troubled all the time - these days?To some pesvfs6912/25/2024Exercise Vital SignAnswerDate Recorded On average, how many [...] you from medical appointments or from getting medications?No02/14/2025In the past 12 months, has lack of [...] were you homeless or living in a penitentiary (including now)?No12/25/2024Comments UnknownSex and Gender InformationValueDate RecordedSex Assigned at BirthFemale 07/22/2023 3:43 PM EDTLegal HogLjrvyx62/15/2023 6:35 PM EDTGender IdentityFemale 07/22/2023 3:43 PM EDTSexual EjnodkicuiyPbvfmrfx53/11/2023 3:43 PM EDTdocumented as of this encounter Functional Status * AUDIT-C ScoreAnswerDate of DctcsmomtvGzqxvd708/14/2025 8:34 PM Lamar Rojas * Q1: How often do you have a drink containing alcohol?AnswerDate of Assessment NehvifTxhwv35/14/2025 8:34 PM Lamar Rojas * Q2: How many drinks containing alcohol do you have on a typical day when you are drinking?AnswerDate of AssessmentAuthorPatient does not drink12/25/2024 8:34 PM Lamar Rojas * Q3: How often do you have six or more drinks on one occasion?AnswerDate of EyjkjkevlhCbgjrpZnqwg65/14/2025 8:34 PM Lamar Rojas * Over the past 2 weeks, how often have you been bothered by any of the following problems?QuestionAnswerDate of AssessmentAuthorLittle interest or pleasure in doing thingsNot at all11/19/2024 10:00 AM Ofelia Gurrola Feeling down, depressed, or hopelessNot at all11/19/2024 10:00 AM Ofelia GurrolaPatient Health Questionnaire-2 [id number] 10:00 AM Ofelia Gurrola * QuestionAnswerDate of AssessmentAuthorTrouble falling or staying asleep, or sleeping too muchNot at all11/19/2024 10:00 AM Lindy Gurrolaeeling tired or having little energyNot at all11/19/2024 10:00 AM Ofelia GurrolaPoor appetite or overeatingNot at all11/19/2024 10:00 AM Yan Gurrolaling bad about yourself - or that you are a failure or have let yourself or your family downNot at all11/19/2024 10:00 AM Traci Gurrola concentrating on things, such as reading the newspaper or watching television Several days11/19/2024 10:00 AM Ofelia GurrolaMoving or speaking so slowly that other people could have noticed? Or the opposite - being so fidgety or restless that you have been moving around a lot more than usual.Not at all 11/19/2024 10:00 AM Sierra Gurrolahoughts that you would be better off or hurting yourself in some wayNot at all11/19/2024 10:00 AM Ofelia GurrolaPatient Health Questionnaire-9 [id number] 10:00 AM Ofelia Gurrola documented as of this encounter Plan of Treatment Not on file documented as of this encounter Procedures Procedure NamePriorityDate/TimeAssociated DiagnosisCommentsMM TOMOSYNTHESIS SCREENING BI09/14/2024 11:22 AM EST documented in this encounter Results * MM TOMOSYNTHESIS SCREENING (09/14/2024 11:22 AM EST)Anatomical Region LateralityModalityOtherSpecimen (Source)Anatomical Location / Laterality Collection Method / VolumeCollection TimeReceived Time09/14/2024 11:22 AM EST Narrative 09/14/2024 11:23 AM EST [facility] ?[address] ? [place] [address] ? Mammography Report ? Signed ? Patient: CHRISTIN CARRILLO ?MR#: [id number] ?? : 1950 ?Acct:[id number] ?? Age/Sex: 73 / F ?ADM Date: 09/14/24 ?? Loc: MAMMO ? Attending Dr: Pete Orantes M.D. ? Ordering Physician: Pete Orantes M.D. ?Results: ? Date of Service: 09/14/24 ?Follow Up: ? Procedure(s): MM tomosynthesis screening BI ?? Accession Number(s): [id number] ? cc: Pete Orantes M.D. ? Patient Name: ? CHRISTIN CARRILLO ? MR#: [id number] ? : 1950 ? Exam Date: 09/14/2024 [...] at age ??81. ? LOCATION: ? [facility] ? BREAST COMPOSITION: ? The breasts [...] By: ?Nader Zendejas M.D. ? Signed By: ?09/14/24 1123 ? DD/ 1122 ? TD/TT: ? Operating Engineer Apprentice: Procedure Note Radiology, Radiologist, MD - 09/14/2024 [place] [address] Mammography Report Signed Patient: CHRISTIN CARRILLO AMR#: [id number] : 1950cct:[id number] Age/Sex: 73 / FADM Date: 09/14/24 Loc: MAMMO Attending Dr: Pete Orantes M.D. Ordering Physician: Pete Orantes M.D.Results: Date of Service: 09/14/24Follow Up: Procedure(s): MM tomosynthesis screening BI Accession Number(s): [id number] cc: Pete Orantes M.D. Patient Name: CHRISTIN CARRILLO MR#: [id number] : 1950 Exam Date: 09/14/2024 Ordering Doctor: DR Pete Orantes . RADIOLOGY REPORT PROCEDURE: MM TOMOSYNTHESIS SCREENING BI COMPARISON: MM TOMOSYNTHESIS SCREENING BI, 09/13/2023. MG MAMM IULYXJ8Y ZAYRA CAD, 09/10/2022. INDICATIONS: Screening Calculator Name NCI Breast Cancer Risk Assessment Tool 5 Year Breast Cancer Risk 1.80% Lifetime Breast Cancer Risk 4.60% Personal Breast Cancer No Personal Ovarian Cancer No Treatments None Family Cancers Mother with non hodgekins lymphoma cancer at age 80. LOCATION: [facility] BREAST COMPOSITION: The breasts are heterogeneously [...] M.D. Signed By:09/14/24 1123 DD/ 1122 TD/TT: Operating Engineer Apprentice: Authorizing ProviderResult TypeResult StatusMarc Naderer MDCLINISYNC IMAGING Final Result documented in this encounter Visit Diagnoses Not on filedocumented in this encounter Care Teams Team MemberRelationshipSpecialtyStart DateEnd Date Pete Orantes MD PCP - GeneralFamily Medicine12/17/23 Pete Orantes MD [address] [place] [address] PCP - ACO Reach12/18/24 Maykel Pinzon DO [address] [place] [address] Referring PhysicianNeurology02/01/25documented as of this encounter
--- OUTSIDE RECORDS SUMMARY | 2025-09-16 11:19 | XMS_ITS | Encounter Summary ---
Author Organization [facility] Address [address] [place] [address] Care Team Providers Care Hearings Reporter Name Role Phone Pete Alcala MD Primary Care Provider [phone] Pete Alcala MD Unavailable Maykel Pinzon DO Unavailable [phone] Encounter Details DateTypeDepartmentCare Team (Latest Contact Info)Piekkhkizdq41/14/2024Clinisync Result Encounter [facility] External Department Unsolicited Pete Alcala MD [address] [place] [phone] Social History Tobacco UseTypesPacks/DayYears UsedDateSmoking Tobacco: NeverSmokeless [...] times a week12/25/2024How often do you attend jainism or zoroastrian services?More than 4 times per year12/25/2024Do you belong to any clubs or organizations such as jainism groups, unions, fraternal or athletic groups, or [...] heating?Somewhat hard 12/25/2024PHQ-2AnswerDate RecordedPatient Health Questionnaire-2 Score0 11/19/2024[facility] [place] [facility] - Occupational Stress QuestionnaireAnswerDate RecordedDo you feel stress - tense, restless, nervous, or anxious, or unable to sleep at night because yourmind is troubled all the time - these days?To some dwyber0112/25/2024Exercise Vital SignAnswerDate Recorded On average, how many [...] were you homeless or living in a fpc (including now)?No12/25/2024Comments UnknownSex and Gender InformationValueDate RecordedSex Assigned at BirthFemale 07/22/2023 3:43 PM EDTLegal SshKqmgfi41/15/2023 6:35 PM EDTGender IdentityFemale 07/22/2023 3:43 PM EDTSexual MnoceuxjtqgAvqgrpdx91/11/2023 3:43 PM EDTdocumented as of this encounter Functional Status * AUDIT-C ScoreAnswerDate of UufxnyhmdoManyzj138/14/2025 8:34 PM Lamar Rojas * Q1: How often do you have a drink containing alcohol?AnswerDate of Assessment RsibhxCdfmj35/14/2025 8:34 PM Lamar Rojas * Q2: How many drinks containing alcohol do you have on a typical day when you are drinking?AnswerDate of AssessmentAuthorPatient does not drink12/25/2024 8:34 PM Lamar Rojas * Q3: How often do you have six or more drinks on one occasion?AnswerDate of FhaejxtubaBcezcyCpkfr85/14/2025 8:34 PM Lamar Rojas * Over the past 2 weeks, how often have you been bothered by any of the following problems?QuestionAnswerDate of AssessmentAuthorLittle interest or pleasure in doing thingsNot at all11/19/2024 10:00 AM Ofelia Gurrola Feeling down, depressed, or hopelessNot at all11/19/2024 10:00 AM Ofelia GurrolaPatient Health Questionnaire-2 Jjvqv319 10:00 AM Ofelia Gurrola * QuestionAnswerDate of AssessmentAuthorTrouble falling or staying asleep, or sleeping too muchNot at all11/19/2024 10:00 AM Lindy Gurrolaeeling tired or having little energyNot at all11/19/2024 10:00 AM Ofelia GurrloaPoor appetite or overeatingNot at all11/19/2024 10:00 AM Yan Gurrolaling bad about yourself - or that you are a failure or have let yourself or your family downNot at all11/19/2024 10:00 AM Traci Gurrola concentrating on things, such as reading the newspaper or watching television Several days11/19/2024 10:00 AM Izabela, OfeliaMoving or speaking so slowly that other people could have noticed? Or the opposite - being so fidgety or restless that you have been moving around a lot more than usual.Not at all 11/19/2024 10:00 AM Janelle Gurrolaghts that you would be better off or hurting yourself in some wayNot at all11/19/2024 10:00 AM Ofelia GurrolaPatient Health Questionnaire-9 Mpoty386 10:00 AM Ofelia Gurrola documented as of this encounter Plan of Treatment Not on file documented as of this encounter Procedures Procedure NamePriorityDate/TimeAssociated DiagnosisCommentsXR DEXA AXIAL TDEDXVAI85/14/2024 6:18 AM EDT documented in this encounter Results * XR DEXA AXIAL SKELETON (07/25/2024 6:18 AM EDT)Anatomical RegionLaterality ModalityOtherSpecimen (Source)Anatomical Location / LateralityCollection Method / VolumeCollection TimeReceived Time07/25/2024 6:18 AM EDT Narrative 07/25/2024 6:20 AM EDT [facility] ?[address] ? [place] [address] ?XRay Report ? Signed ? Patient: CARRILLO,CHRISTIN A ?MR#: [id number] ?? : 1950 ?Acct:[id number] ?? Age/Sex: 73 / F ?ADM Date: 09/13/24 ?? Loc: RAD ? Attending Dr: Pete Alcala M.D. ? Ordering Physician: Pete Alcala M.D. ?? Date of Service: 07/24/24 ?? Procedure(s): XR DEXA axial skeleton ?? Accession Number(s): [id number] ? cc: Pete Alcala M.D. ? [facility] ? [address] ? [place] [address] ? Patient Name: ?? CHRISTIN CARRILLO ? MRN: [facility]:[id number] ? date: 1950 ?Sex: F ?? Assigned Patient Location: RAD ?? Current Patient Location: ? Accession/Order Number: [id number] ?? Exam Date: 07/24/2024 ??09:50 ?Report Date: 07/25/2024 ??06:18 ? At the request of: ?? PETE ??CARI ? Procedure: ??XR DEXA axial skeleton ? EXAMINATION: XR DEXA axial skeleton ? HISTORY: OSTEOPENIA OF NECK AND RIGHT FEMUR M85.851 ? COMPARISON: DEXA bone densitometry 09/07/2021 ? TECHNIQUE: Dual-energy X-ray absorptiometry (DXA) was performed. ? FINDINGS: ?? SPINE ANALYSIS: ?? Average bone mineral density is 1.333 g/cm2. ?? T-score (standard deviation relative to young adult mean): 1.3 . ?? +1.8% change since prior study. ? HIP ANALYSIS: ?? Lowest bone mineral density is within the left femoral neck, 0.853 g/cm2. ?? T-score (standard deviation relative to young adult mean): -1.3 . ?? -2.1% change since prior study. ? XR/XR DEXA axial skeleton ?? IMPRESSION: ? World Health Organization Classification: Osteopenia - Moderate Fracture Risk ?? FRAX: Cannot calculate. ? Pharmacologic treatment recommendations ?? * No uniform recommendation applies to all patients. Management plans must be ?? individualized. ?? * Consider initiating pharmacologic treatment in postmenopausal women and men ?? >= 50 years of age who have the following: Primary fracture prevention: ?? * T-score <= - 2.5 at the femoral neck, total hip, lumbar spine, 33% radius (some uncertainty with existing data) by DXA. ?? * Low bone mass (osteopenia: T-score between - 1.0 and - 2.5) at the femoral ?? neck or total hip by DXA with a 10-year hip fracture risk >= 3% or a 10-year major osteoporosis-related fracture risk >= 20% (i.e., clinical vertebral, hip, ?? forearm, or proximal humerus) based on the [place]-adapted FRAXregistered model. ?? Secondary fracture prevention: ?? * Fracture of the hip or vertebra regardless of BMD [4, 5]. ?? * Fracture of proximal humerus, pelvis, or distal forearm in persons with low ?? bone mass (osteopenia: T-score between - 1.0 and - 2.5). The decision to treat ? should be individualized in persons with a fracture of the proximal humerus, ?? pelvis, or distal forearm who do not have osteopenia or low BMD [12, 13]. ?? Becky MS, Roberto SL, Grayson KL, Denton EM, Sabrina KG, AJ, John ?? ES. ?? The clinician's guide to prevention and treatment of osteoporosis. Osteoporos ?? Int. 2021;33(10):0089-9719. doi: 10.1007/p58909-467-55487-a. Ep2021 ? 28. Erratum in: Osteoporos Int. 2021Jun 07;: PMID: 55413635; PMCID: ?? [id number]. ? Electronically authenticated by: JUAN ??GIANNI ?? Date: 07/25/2024 ??06:18 ? Dictated By: ?Juan Veronica M.D. ? Signed By: ?07/25/24 0620 ? DD/ 7 ? TD/TT: ? Electric Range Assembler: Procedure Note Radiology, Radiologist, MD - 07/25/2024 [place] [address] XRay Report Signed Patient: CHRISTIN CARRILLO AMR#: [id number] : 2Acct:[id number] Age/Sex: 73 / FADM Date: 07/24/24 Loc: RAD Attending Dr: Pete Alcala M.D. Ordering Physician: Pete Alcala M.D. Date of Service: 07/24/24 Procedure(s): XR DEXA axial skeleton Accession Number(s): [id number] cc: Pete Alcala M.D. [address] [address] Patient Name: CHRISTIN CARRILLO MRN: [id number] date: 1950 Sex: F Assigned Patient [facility]: [facility] Current Patient Location: Accession/Order Number: [id number] Exam Date: 07/24/2024 09:50 Report Date: 07/25/2024 06:18 At the request of: PETE ALCALA Procedure: XR DEXA axial skeleton EXAMINATION: XR DEXA axial skeleton HISTORY: OSTEOPENIA OF NECK AND RIGHT FEMUR M85.851 COMPARISON: DEXA bone densitometry 09/07/2021 TECHNIQUE: Dual-energy X-ray absorptiometry (DXA) was performed. FINDINGS: SPINE ANALYSIS: Average bone mineral density is 1.333 g/cm2. T-score (standard deviation relative to young adult mean): 1.3 . +1.8% change since prior study. HIP ANALYSIS: Lowest bone mineral density is within the left femoral neck, 0.853 g/cm2. T-score (standard deviation relative to young adult mean): -1.3 . -2.1% change since prior study. XR/XR DEXA axial skeleton IMPRESSION: World Health Organization Classification: Osteopenia - Moderate FractureRisk FRAX: Cannot calculate. Pharmacologic treatment recommendations * No uniform recommendation applies to all patients. Management plans mustbe individualized. * Consider initiating pharmacologic treatment in postmenopausal women andmen >= 50 years of age who have the following: Primary fracture prevention: * T-score <= - 2.5 at the femoral neck, total hip, lumbar spine, 33%radius (some uncertainty with existing data) by DXA. * Low bone mass (osteopenia: T-score between - 1.0 and - 2.5) at thefemoral neck or total hip by DXA with a 10-year hip fracture risk >= 3% or c58-mzun major osteoporosis-related fracture risk >= 20% (i.e., clinical vertebral, hip, forearm, or proximal humerus) based on the [place]-adapted FRAXregisteredmodel. Secondary fracture prevention: * Fracture of the hip or vertebra regardless of BMD [4, 5]. * Fracture of proximal humerus, pelvis, or distal forearm in persons withlow bone mass (osteopenia: T-score between - 1.0 and - 2.5). The decision totreat should be individualized in persons with a fracture of the proximalhumerus, pelvis, or distal forearm who do not have osteopenia or low BMD [12, 13]. Becky MS, Roberto SL, Grayson KL, Denton EM, Sabrina KG, AJ,John ES. The clinician's guide to prevention and treatment of osteoporosis.Osteoporos Int. 2021;33(10):1329-6354. doi: 10.1007/g65534-357-90258-f. Ep. Erratum in: Osteoporos Int. 2021Jun 07;: PMID: 19194534; PMCID: [id number]. Electronically authenticated by: JUAN VERONICA Date: 07/25/2024 06:18 Dictated By: Juan Veronica M.D. Signed By:07/25/24619 DD/ 7 TD/TT: Electric Range Assembler: Authorizing ProviderResult TypeResult StatusMarc Cari MDCLINISYNC IMAGING Final Result documented in this encounter Visit Diagnoses Not on filedocumented in this encounter Care Teams Team MemberRelationshipSpecialtyStart DateEnd Date Pete Alcala MD PCP - GeneralFamily Medicine12/17/23 Pete Alcala MD [address] [place] [phone] PCP - ACO Reach12/18/24 Maykel Pinzon DO [address] [place] [address] Referring PhysicianNeurology02/01/25documented as of this encounter
--- OUTSIDE RECORDS SUMMARY | 2025-09-16 11:21 | XMS_ITS | CCD ---
Author Organization [facility] CliniSywa Care Team Providers Care Music Adapter Name Role Phone DR PETE ALCALA Primary Care Unavailable CARI, DR PETE Baker Admitting Unavailable CARI, DR PETE Baker Attending Unavailable CARI, DR PETE Baker Primary Care Unavailable TAMFELIXN Nesha, ANDRES Admitting Unavailable TAMLYN ., ANDRES Attending Unavailable TAMLYN Nesha, ANDRES Consulting Unavailable INEZ STANLEY Consulting Unavailable RUSTY RICH Consulting Unavailable CARI, DR PETE Baker Attending Unavailable CARI, DR PETE Baker Primary Care Unavailable CARI, DR PETE Baker Admitting Unavailable MOUNT AETNA, DR ALEXANDER Oneill Consulting Unavailable NADERER, DR PETE Baker Consulting Unavailable NADERER, DR PETE Baker Primary Care Unavailable JUAN FISHER Admitting Unavailable JUAN FISHER Attending Unavailable PHILLIP, JUAN Consulting Unavailable JEREMÍAS JOSEPH Consulting Unavailable Pete Alcala MD Primary Care Provider [phone] Pete Alcala MD Unavailable Jeromy POWERS, Christopher Unavailable Jeromy POWERS, Christopher Unavailable Jeromy POWERS, Christopher Unavailable PETE ALCALA Attending Unavailable SALLY PINZON Attending Unavailable PETE ALCALA Referring Unavailable SALLY PINZON Referring Unavailable RENAN DENNIS Attending Unavailable SALLY PINZON Referring Unavailable LATISHA KUNZ Attending Unavailable PETE ALCALA Attending Unavailable CASE MENENDEZ Attending Unavailable CASE MENENDEZ Referring Unavailable CASE MENENDEZ Attending Unavailable CASE MENENDEZ Referring Unavailable CASE MENENDEZ Attending Unavailable CASE MENENDEZ Referring Unavailable PETE ALCALA Attending Unavailable PETE ALCALA Attending Unavailable Pete Alcala MD Primary Care Provider Toth Kirsty MENA Attending Provider Pete Alcala MD Primary Care Provider Pete Alcala MD Unavailable Jeromy POWERSSally Unavailable Pete Alcala MD Primary Care Provider [phone] Kirsty García Attending Provider Pete Alcala MD Attending Provider Allergies Allergy ClassificationReported Allergen(s)Allergy TypeDate of OnsetReaction(s) Facility (1 source)Sulfamethoxazole / TrimethoprimDrug Gfrrrgc66-83-0784Idq [facility] Repository (1 source)Sulfonamides (Antibiotic)Drug allergy (disorder)86-05-6784Tyv [facility] Repository (20 sources)Sulfamethoxazole / TrimethoprimDrug Keyapfw42-96-3064[facility] (20 sources)Sulfonamides (Antibiotic)Drug Bgneibe91-17-8811EqakmZTBX [facility] Medications Current Medications MedicationDrug Class(es)DatesSig (Normalized)Sig (Original)ALPRAZolam 0.25 mg oral tablet (20 sources)BenzodiazepineStart: 88-66-4215dcqj 1 tablet by mouth three times daily as neededAlprazolam 0.25 mg tablet Active 0.25 MG PO Three times daily as needed July 21, 2025 11:00pm Complies with drug therapyStart: 12-23-2024 End: 08-31-2799tnxp 1 tablet by mouth three times daily as needed for anxiety ALPRAZolam (Xanax) 0.25 MG tablet Indications: Anxiety Take 1 tablet (0.25 mg) by mouth 3 (three) times a day as needed for anxiety for up to 20 days 60 tablet 04/26/2025 Activeascorbic acid 1000 mg oral tablet (20 sources)Vitamin Ctake 1 tablet by mouth in the morningAscorbic Acid (vitamin C) 1000 MG tablet Take 1,000 mg by mouth in the morning. Activecalcitriol 0.78982 mg oral capsule (20 sources)Vitamin D3 AnalogStart: 35-82-6891wccm 1 capsule by mouth once daily Calcitriol 0.25 mcg capsule Active 0.25 MCG PO Daily July 21, 2025 11:00pm Complies with drug therapyciprofloxacin 500 mg oral tablet (2 sources)Quinolone AntimicrobialStart: 05-06-2025 End: 44-80-5930bpnw 1 tablet by mouth in the morningciprofloxacin (Cipro) 500 MG tablet Indications: Urinary tract infection without hematuria, site unspecified Take 1 tablet (500 mg) by mouth in the morning and 1 tablet (500 mg) before bedtime. Do all this for 7 days. 14 tablet 05/06/2025 05/20/2025 Discontinued ferrous sulfate 325 mg oral tablet (15 sources)Start: 19-36-2716zmwc 1 tablet by mouth once dailyFerrous Sulfate 325 mg (65 mg iron) tablet Active 325 MG PO Daily July 21, 2025 11:00pm Complies with drug therapytake 1 tablet by mouth at mealtimeferrous sulfate 325 (65 Fe) MG EC tablet Indications: Mild cognitive impairment Take 325 mg by mouth in the morning. Take with meals. Do not crush, chew, or split.. Active latanoprost 0.05 mg/ml ophthalmic solution (20 sources)Prostaglandin AnalogStart: 96-42-8953Kqswdwqtwos 0.005 % drops Active DROPS OPHTHALMIC December 21, 2024 12:00am Complies with drug therapy Start: 42-42-9588bxep 1 drop(s) into the eye(s) once daily in the evening latanoprost (Xalatan) 0.005 % ophthalmic solution INSTILL 1 DROP INTO BOTH EYES EVERY EVENING DIRECTED 06/05/2023 ActivemethylPREDNISolone (9 sources)CorticosteroidStart: 09-15-2024 End: 27-11-2988jbreniEXGNDTPlvkzr (Medrol Dospak) 4 MG tablets Indications: Acute pain of right shoulder Follow schedule on package instructions 21 tablet 09/15/2024 11/19/2024 DiscontinuedStart: 17-48-7653hxrlxtWQXSAEUulssg (Medrol Dospak) 4 MG tablets Indications: Acute pain of right shoulder Follow schedule on package instructions 21 tablet 09/15/2024 ActiveStart: 08-28-2024 End: 93-73-1140ntyomcKKPZKYQfwubj acetate (DEPO-Medrol) injection 40 mgStart: 08-28-2024 End: 32-02-394976 mg, Intra-articular, Once PRN Procedure, Starting on Sat08/28/24 at 0931, For 1 doseMisc Natural Products (Glucosamine Chond Complex/MSM) tablet (20 sources)Misc Natural Products (Glucosamine Chond Complex/MSM) tablet Orally ActiveMultiple Vitamins-Minerals (MULTIVITAMIN WOMEN 50+ PO) (20 sources)Multiple Vitamins-Minerals (MULTIVITAMIN WOMEN 50+ PO) Take by mouth XpdytxYy-Rqo-Dubrq-Calcium Carb-K1 (Women's 50 Plus Multivitamin) 400 mcg-500 mg calcium-20 mcg tablet (2 sources)Start: 11-24-8501ngio 1 tablet by mouth hzrpHf-Rcy-Qzyee-Calcium Carb-K1 (Women's 50 Plus Multivitamin) 400 mcg-500 mg calcium-20 mcg tablet Act rasheed TAB PO July 21, 2025 11:00pm Complies with drug therapyStart: 46-55-3114ectf 1 tablet by mouth ylzxCq-Dwp-Kcxto-Calcium Carb-K1 (Women's 50 Plus Multivitamin) 400 mcg-500 mg calcium-20 mcg tablet Active TAB PO July 22, 2025 12:00am Complies with drug therapypredniSONE 50 mg oral tablet (3 sources)Start: 75-46-1328brvj 1 tablet by mouth once dailyPrednisone 50 mg tablet Active 50 MG PO Daily 6 September 13, 2025 12:00am Complies with drug therapyStart: 08-07-2024 End: 15-28-2866qeqi 2 tablets by mouth once daily, then take 1 tablet by mouth once daily at mealtimepredniSONE (Deltasone) 20 MG tablet Indications: Left leg pain Take 2 tablets (40 mg) by mouth Daily for 5 days, THEN 1 tablet (20 mg) Daily for 5 days. Take with food. 15 tablet 08/07/2024 08/16/2024 Active Problems Active Problems Problem ClassificationProblemDateDocumented DateEpisodic/ChronicAnxiety disorders (20 sources)Anxiety; Translations: [Anxiety disorder, unspecified]Onset: 606351-73-6452GdxomawFrdxbahmci disorders (20 sources)First degree atrioventricular block; Translations: [Atrioventricular block, first degree]Onset: 001468-42-3302MfoevabGyhixxoyw of lipid metabolism (20 sources)Dyslipidemia; Translations: [Hyperlipidemia, unspecified]Onset: 250449-30-6797XinhizjNnyqiwowuibhz and screening for infectious disease (1 source)Contact with or exposure to other viral diseases; Translations: [Contact with and (suspected) exposure to covid-19]74-44-9438NayhgfmvNzdhkeaqu (20 sources)Influenza due to Influenza A virus; Translations: [Influenza due to other identified influenza virus with other respiratory manifestations]Onset: 12-30-2024 Resolved: 208602-66-7602XcexculzNzfga disorders and dislocations; trauma-related (4 sources)Chondromalacia of left patella; Translations: [Chondromalacia patellae, left knee]27-55-9898RbuqankVhwhiuiiqmtsv mental health disorders (20 sources)Insomnia disorder related to another mental disorder; Translations: [Insomnia due to other mental disorder]Onset: 02-03-2024 Resolved: 874102-68-8375XlijvowUijz disorders (2 sources)Recurrent major depressive episodes, mild ; Translations: [Major depressive disorder, recurrent, mild]83-74-4777JjdiwriPtorv aftercare (1 source)Other terminal clerk (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) drug therapy; Translations: [OTH SENIOR CARE CURRENT DRUG THERAPY]Onset: 71-22-9935UuivrbxnKhtec aftercare (20 sources)Long-term current use of drug therapy; Translations: [Other long-term (current) drug therapy]Onset: 425156-71-4078RauyqbfcTwwta and unspecified benign neoplasm (1 source)Benign neoplasm of sigmoid colon; Translations: [BENIGN NEOPLASM OF SIGMOID COLON]Onset: 56-73-3956KeszeiihVdocf connective tissue disease (2 sources)Pain in right arm; Translations: [Pain in right arm]09-14-2024 EpisodicOther connective tissue disease (2 sources)Pain in left lower limb; Translations: [Pain in left leg]08-06-2024 EpisodicOther gastrointestinal disorders (4 sources)Constipation, unspecified; Translations: [CONSTIPATION UNSPECIFIED] Onset: 69-82-5609GmjdygscCqzdx hereditary and degenerative nervous system conditions (12 sources)Impaired cognition; Translations: [Mild cognitive impairment, so stated]Onset: 256684-96-9837TzwhbwzUrgmn hereditary and degenerative nervous system conditions (4 sources)Mild cognitive disorder ; Translations: [Mild cognitive impairment, so stated]01-69-3948LtxasuyNfghf nervous system disorders (6 sources)Disturbance of attention; Translations: [Attention and concentration deficit]77-52-7952GpvwzwmCjxsd non-traumatic joint disorders (2 sources)Pain in left knee; Translations: [Pain in joint, lower leg]08-28-2024 EpisodicOther non-traumatic joint disorders (2 sources)Disorder of shoulder; Translations: [Other specified joint disorders, right shoulder]30-02-6922RnynidvxEbofh non-traumatic joint disorders (2 sources)Pain in right shoulder; Translations: [Pain in joint, shoulder region]55-75-2129HwpprxeiBrdra screening for suspected conditions (not mental disorders or infectious disease) (8 sources)Encounter for screening for malignant neoplasm of colon; Translations: [Encounter for screening mammogram for malignant neoplasm of breast]Onset: 81-47-9569GzzlntqsRnuwlapv codes; unclassified (4 sources)Family history of dementia; Translations: [Family history of other mental and behavioral disorders]91-32-9599BorztesxWjkfdnwswjl; intervertebral disc disorders; other back problems (20 sources)Degeneration of cervical intervertebral disc; Translations: [Other cervical disc degeneration, unspecified cervical region]Onset: 02-03-2024 05-91-3720Lfohdbi Past or Other Problems Problem ClassificationProblemDateDocumented DateEpisodic/ChronicMalaise and fatigue (20 sources)Fatigue; Translations: [Other fatigue]Onset: 07-15-2024 Resolved: 077938-29-5907DsqxflyzGtjc disorders (20 sources)Mood disordersOnset: 022174-24-2843Xoien aftercare (4 sources)Patient encounter status; Translations: [Other long-term (current) drug therapy]Onset: 796710-01-7974WbuuddgiAuuxt bone disease and musculoskeletal deformities (20 sources)Osteopenia; Translations: [Other specified disorders of bone density and structure, right thigh]Onset: 140705-39-5681BoqencgrVuzpw injuries and conditions due to external causes (4 sources)Unspecified injury of muscle, fascia and tendon of the posterior muscle group at thigh level, rightthigh, subsequent encounter; Translations: [UNS INJ MSC FASC POST THIGH RT SUB]Onset: 91-36-1282VultltfiLlgcg upper respiratory disease (20 sources)Allergic rhinitis due to pollen; Translations: [Allergic rhinitis due to pollen]Onset: 02-03-2024 Resolved: 639658-87-8862MgfzypyZwzosols codes; unclassified (1 source)Family history of other malignant neoplasms of lymphoid, hematopoietic and related tissues; Translations: [FAM HX OTH MAL CAPO LYMPH HEMATPOETC]Onset: 93-34-5128DbihpirhOljlnwba codes; unclassified (20 sources)Amnesia; Translations: [Other amnesia]Onset: Episodic Results Test NameValueInterpretationReference RangeFacilityVITAMIN B12on 03-03-2025 Cobalamin (Vitamin B12) [Mass/Vol]702 pg/mL232 - 1245 pg/mLNCitizens Memorial Healthcare Comment on above:Performed at: [facility] [id number] Repossessor: Bonilla Gore PhD, Phone: [phone] [facility] BRAIN W AND WO CONTRAST (ROUTINE)on 59-04-0801CJ BRAIN W AND WO CONTRAST (ROUTINE)MR BRAIN W AND WO CONTRAST (ROUTINE) INDICATION: Memory loss, denies memory loss COMPARISON: None. TECHNIQUE: Sagittal T1, axial T2, axial T2* GRE, axial FLAIR, axial DWI sequences of the brain wereacquired. Postcontrast axial and coronal T1 images following [...] T2/FLAIR hyperintensities, nonspecific, although most likely due tochronic small vessel ischemic disease. Dictated on: 02/10/2025 12:09 PM This report has been electronically signed and approved by the interpreting Radiologist.NormalNot AvailableALL CBC WITH AUTO DIFFon 02-72-2382BBTLPIAXH ABSOLUTE TOME6YCXF HealthcareBasophils/100 WBC (Bld)0.9 %0.2 - 2.0 %[facility] HealthcareEosinophils/100 WBC (Bld)2.4 %0.9 - 7.0 %[facility] HealthcareErythrocyte distribution width (RBC) [Ratio]14.2 %11.0 - 15.0 %[facility] HealthcareHematocrit (Bld) [Volume fraction]42.5 %36.0 - 48.0 %[facility] HealthcareHemoglobin (Bld) [Mass/Vol]13.9 g/dL12.0 - 16.0 g/dLSSM Saint Mary's Health CenterIMMATURE GRANULOCYTES ABS AUTO 0.02N[facility]S [facility] CompanyImmature granulocytes/100 WBC (Bld)0.6 %High0.0 - 0.5 %[facility] HealthcareInterpretation and review of laboratory resultsAbnormalNOSaint Luke's [facility] LYMPHOCYTES ABSOLUTE PQTM5MjvPZJC HealthcareLymphocytes/100 WBC (Bld)30.2 %20.5 - 60.0 %[facility] CenterH (RBC) [Entitic mass]29.1 pg26.7 - 34.0 pgSaint John's Breech Regional Medical CenterHC (RBC) [Mass/Vol]32.7 g/dL29.9 - 35.2 g/dLSaint John's Breech Regional Medical CenterV (RBC) [Entitic vol]89.1 fL81.0 - 99.0 fLSSM Saint Mary's Health CenterMONOCYTES ABSOLUTE AUTO0.4N[facility] HealthcareMonocytes/100 WBC (Bld)11.4 %1.7 - 12.0 %NOM HealthcareNEUTROPHILS ABSOLUTE AUTO1.8[facility] HealthcareNeutrophils/100 WBC (Bld)54.5 %43.0 - 75.0 %[facility]'s Health CenterPlatelet mean volume (Bld) [Entitic vol]8.9 fLLow9.5 - 13.5 fLSSM Saint Mary's Health CenterTBH EO #0.1NOMS HealthcareTB RZU216EIFPMercy Hospital South, formerly [facility] RBC4.77NOMS [facility] WBC3.3[facility] Health CenterCLINISYNCNOMS HealthcareXR Shoulder - right 2 Viewson 31-45-3943Nehfody Result: AP and Scapular Y right shoulder: No acute fracture or dislocation Visualized lung diaz unremarkable. Moderate degenerative changes AC joint shoulder Impression: Moderate AC joint arthritis with no acute bony process right shoulderSSM Health Cardinal [facility] HealthcareRadiology Study observation (narrative) [facility] TOMOSYNTHESIS SCREENING BIon 01-70-9124OzkCl[place], [place] [address] Mammography Report Signed Patient: DANTE CARRILLO MR#: [id number] : 1950 Acct:[id number] Age/Sex: 73 / F ADM Date: 09/14/24 Loc: MAMMO Attending Dr: Pete Alcala M.D. Ordering Physician: Pete Alcala M.D. Results: Date of Service: 09/14/24 Follow Up: Procedure(s): MM tomosynthesis screening BI Accession Number(s): [id number] cc: Pete Alcala M.D. Patient Name: DANTE CARRILLO MR#: [id number] : 1950 Exam Date: 09/14/2024 Ordering Doctor: DR Pete Alcala . RADIOLOGY REPORT PROCEDURE: MM TOMOSYNTHESIS SCREENING BI COMPARISON: MM TOMOSYNTHESIS SCREENING BI, 09/13/2023. MG MAMM SCREEN 3D ZAYRA CAD, 09/10/2022. INDICATIONS: Screening Calculator Name NCI Breast Cancer Risk Assessment Tool 5 Year Breast Cancer Risk 1.80% Lifetime Breast Cancer Risk 4.60% Personal Breast Cancer No Personal Ovarian Cancer No Treatments None Family Cancers Mother with non hodgekins lymphoma cancer at age 80. LOCATION: [facility] BREAST COMPOSITION: The breasts are heterogeneously dense,which [...] BIOPSIED. Dictated by: Alexander Zendejas MD on 09/14/2024 at 11:20 Approved by: Alexander Zendejas MD on 09/14/2024 at 11:22 Dictated By: Alexander Zendejas M.D. Signed By: 09/14/241122 DD/ 21 TD/TT: [place]:TBHRadiology, Radiologist, - 09/14/2024 [place] [address] Mammography Report Signed Patient: DANTE CARRILLO MR#: [id number] : 1950 Acct:[id number] Age/Sex: 73 / F ADM Date: 09/14/24 Loc: MAMMO Attending Dr: Pete Alcala M.D. Ordering Physician: Pete Alcala M.D. Results: Date of Service: 09/14/24 Follow Up: Procedure(s): MM tomosynthesis screening BI Accession Number(s): [id number] cc: Pete Alcala M.D. Patient Name: DANTE CARRILLO MR#: [id number] : 1950 Exam Date: 09/14/2024 Ordering Doctor: DR Pete Alcala . RADIOLOGY REPORT PROCEDURE: MM TOMOSYNTHESIS SCREENING BI COMPARISON: MM TOMOSYNTHESIS SCREENING BI, 09/13/2023. MG MAMM SCREEN 3D ZAYRA CAD, 09/10/2022. INDICATIONS: Screening Calculator Name NCI Breast Cancer Risk Assessment Tool 5 Year Breast Cancer Risk 1.80% Lifetime Breast Cancer Risk 4.60% Personal Breast Cancer No Personal Ovarian Cancer No Treatments None Family Cancers Mother with non hodgekins lymphoma cancer at age 80. LOCATION: [facility] BREAST COMPOSITION: The breasts are heterogeneously dense,which [...] BIOPSIED. Dictated by: Alexander Zendejas MD on 09/14/2024 at 11:20 Approved by: Alexander Zendejas MD on 09/14/2024 at 11:22 Dictated By: Alexander Zendejas M.D. Signed By: 09/14/24 1123 DD/ 21 TD/TT: [place]: [facility] Health CenterRadiology Study observation (narrative)[facility] TOMOSYNTHESIS SCREENING BIOrdered By: Radiologist Radiology on 00-80-0982PVKJSSM Saint [facility]'s [facility] Center Work Phone: No Panel Informationon 88-77-7483Czlixnk JONATHAN Cowan 08/28/2024 9:36 AM L Inj/Asp: L knee [...] and draped in the usual sterile fashion. [facility] HospitalXR Knee - left 1 or 2 Viewson 90-43-8024Tshfmkc Result: AP AND LATERAL STANDING LEFT KNEE: No acute fracture. Mild to moderate patellafemoral arthritis Narrowing medial joint line with subchondral scleroris.. No significant joint effusion or soft tissue findings Slight varus alignment Impression: Mild degenerative changes left kneeYadkin Valley Community Hospital Radiology Study observation (narrative)[facility] DEXA AXIAL SKELETONon 18-64-7828[address] [address] XRay Report Signed Patient: DANTE CARRILLO MR#: [id number] : 1950 Acct:[id number] Age/Sex: 73 / F ADM Date: 07/24/24 Loc: RAD Attending Dr: Pete Alcala M.D. Ordering Physician: Pete Alcala M.D. Date of Service: 07/24/24 Procedure(s): XR DEXA axial skeleton Accession Number(s): [id number] cc: Pete Alcala M.D. The [place] [address] Patient Name: DANTE CARRILLO MRN: [employer]:[id number] date: 1950 Sex: F Assigned Patient Location: [facility] Current Patient Location: Accession/Order Number: [id number] Exam Date: 07/24/2024 09:50 Report Date: 07/25/2024 [...] Organization Classification: Osteopenia - Moderate Fracture Risk FRAX: Cannot calculate. Pharmacologic treatment recommendations * No uniform recommendation applies to all patients. Management plans must be individualized. * Consider initiating pharmacologic treatment in postmenopausal women and men >= 50 years of age who have the following: Primary fracture prevention: * T-score <= - 2.5 at the femoral neck, total hip, lumbar spine, 33% radius (some uncertainty with existing data) by DXA. * Low bone mass (osteopenia: T-score between - 1.0 and - 2.5) at the femoral neck or total hip by DXA with a 10-year hip fracture risk >= 3% or a 10-year major osteoporosis-related fracture risk >= 20% (i.e., clinical vertebral, hip, forearm, or proximal humerus) based on the US-adapted FRAXregistered model. Secondary fracture prevention: * Fracture of the hip or vertebra regardless of BMD [4, 5]. * Fracture of proximal humerus, pelvis, or distal forearm in persons with low bone mass (osteopenia: T-score between - 1.0 and - 2.5). The decision to treat should be individualized in persons with a fracture of the proximal humerus, pelvis, or distal forearm who do not have osteopenia or low BMD [12, 13]. Becky MS, Roberto SL, Grayson KL, Denton EM, Sabrina KG, AJ, John ES. The clinician's guide to prevention and treatment of osteoporosis. Osteoporos Int. 2021;33(10):5294-8148. doi: 10.1007/n07820-381-43337-g. Epub 2021Mar 08. Erratum in: Osteoporos Int. 2021Jun 07;: PMID: 12077509; PMCID: [id number]. Electronically authenticated by: LISA VERONICA Date: 07/25/2024 06:18 Dictated By: Lisa Veronica M.D. Signed By: 07/25/24619 DD/ 7 TD/TT: [place]:TBHRadiology, Radiologist, - 07/25/2024 [place] [address] XRay Report Signed Patient: DANTE CARRILLO MR#: [id number] : 1950 Acct:[id number] Age/Sex: 73 / F ADM Date: 07/24/24 Loc: RAD Attending Dr: Pete Alcala M.D. Ordering Physician: Pete Alcala M.D. Date of Service: 07/24/24 Procedure(s): XR DEXA axial skeleton Accession Number(s): [id number] cc: Pete Alcala M.D. The [address] [address] Patient Name: DANTE CARRILLO MRN: [facility]:[id number] date: 1950 Sex: F Assigned Patient Location: [facility] Current Patient Location: Accession/Order Number: [id number] Exam Date: 07/24/2024 09:50 Report Date: 07/25/2024 [...] Organization Classification: Osteopenia - Moderate Fracture Risk FRAX: Cannot calculate. Pharmacologic treatment recommendations * No uniform recommendation applies to all patients. Management plans must be individualized. * Consider initiating pharmacologic treatment in postmenopausal women and men >= 50 years of age who have the following: Primary fracture prevention: * T-score <= - 2.5 at the femoral neck, total hip, lumbar spine, 33% radius (some uncertainty with existing data) by DXA. * Low bone mass (osteopenia: T-score between - 1.0 and - 2.5) at the femoral neck or total hip by DXA with a 10-year hip fracture risk >= 3% or a 10-year major osteoporosis-related fracture risk >= 20% (i.e., clinical vertebral, hip, forearm, or proximal humerus) based on the US-adapted FRAXregistered model. Secondary fracture prevention: * Fracture of the hip or vertebra regardless of BMD [4, 5]. * Fracture of proximal humerus, pelvis, or distal forearm in persons with low bone mass (osteopenia: T-score between - 1.0 and - 2.5). The decision to treat should be individualized in persons with a fracture of the proximal humerus, pelvis, or distal forearm who do not have osteopenia or low BMD [12, 13]. Becky MS, Roberto SL, Grayson KL, Denton EM, Sabrina KG, AJ, John ES. The clinician's guide to prevention and treatment of osteoporosis. Osteoporos Int. 2021;33(10):7116-0010. doi: 10.1007/d15330-131-38847-y. Epub 2021Mar 08. Erratum in: Osteoporos Int. 2021Jun 07;: PMID: 58626682; PMCID: [id number]. Electronically authenticated by: LISA VERONICA Date: 07/25/2024 06:18 Dictated By: Lisa Veronica M.D. Signed By: 07/25/24619 DD/ 7 TD/TT: [place]: [facility] HealthcareRadiology Study observation (narrative)[facility] HealthcareXR DEXA AXIAL SKELETONOrdered By: Radiologist Radiology on 14-10-2397DMUQ [employer] Work Phone: XR ABD FLAT_UPon 46-51-0017FD ABD FLAT_UPEXAM: XR ABD FLAT_UP HISTORY: Constipation COMPARISON: None. TECHNIQUE: Supine study on 2 films FINDINGS: Prominent stool is noted within the colon. No dilated small bowel loops. No abnormal calcifications. IMPRESSION: Apparent constipation. Electronically authenticated by: Liseth JOSEPH Date: 2023-03-24 00:41[facility]MG [facility] S[facility]D ZAYRA CADon 07-03-0645ZF MAMM SCREEN 3D ZAYRA CADPatient: DANTE CARRILLO Exam Date: 09/10/2022 : 1950 Gender:F Ordering : DR PETE ALCALA . Admission #: [id number] Family : Order #: [id number] CLICK HERE TO VIEW EXAM RADIOLOGY REPORT [...] lymphoma cancer at age 81. LOCATION: [facility] BREAST COMPOSITION: Heterogeneously dense,which may obscure [...] by: Alexander Zendejas MD on 09/10/2022 at 10:19[facility] Vital Signs Date TimeVital SignValuePerforming XtwkhdsndKxnocdni51-72-3214 10:24-0500Body xjnhox355.72 cmPete Alcala MD Work Phone: [phone]11-03-2025 10:24-0500 Body mass index (BMI) [Ratio]25 kg/m2Pete Alcala MD Work Phone: [phone] [address]11-03-2025 10:24-0500 Body rjpbufboagq84.3 [degF]Pete Alcala MD Work Phone: 1([phone])509[address]11-03-2025 10:24-0500 Body gubsht44.84 kgPete Alcala MD Work Phone: 1([phone])[address]11-03-2025 10:24-0500 Diastolic blood xcakpygw72 mm[Hg]Pete Alcala MD Work Phone: 1([phone])[address]11-03-2025 10:24-0500 Heart rate80 /minPete Alcala MD Work Phone: [phone]11-03-2025 10:24-0500 Respiratory rate18 /minPete Alcala MD Work Phone: [phone] [place], [place] 6811011-03-2025 10:24-0500 SaO2% (BldA) [Mass fraction]97 %Pete Alcala MD Work Phone: 1([phone] [place], [place] 6811011-03-2025 10:24-0500 Systolic blood gtfhckeq100 mm[Hg]Pete Alcala MD Work Phone: [phone]09-11-2025 09:50-0400 Body .26 cmPete Alcala MD Work Phone: 1(367)[address]09-11-2025 09:50-0400 Body mass index (BMI) [Ratio]24.5 kg/m2Ptee Alcala MD Work Phone: 1(574)[address]09-11-2025 09:50-0400 Body ikogfx83.29 kgPete Alcala MD Work Phone: 1(163)[address] [place], [place] 5416509-11-2025 09:50-0400 Diastolic blood ivdtaxhx77 mm[Hg]Pete Alcala MD Work Phone: 1([phone])[address]09-11-2025 09:50-0400 Heart rate75 /minMargaby Alcala MD Work Phone: [phone] [place], [place] 5416509-11-2025 09:50-0400 SaO2% (BldA) [Mass fraction]95 %Pete Alcala MD Work Phone: 1(604)[address]09-11-2025 09:50-0400 Systolic blood wdrfepxh225 mm[Hg]Pete Alcala MD Work Phone: 1(728)[address]07-10-2025 09:57-0400 Body pyljbs978.7 cmPete Alcala MD Work Phone: [facility] CenterVuvjoophcm64-96-1716 09:57-0400Body mass index (BMI) [Ratio]25.7 kg/m2Pete Alcala MD Work Phone: [facility] CenterBpmkmapcsd75-50-1037 09:57-0400Body temperature 97.3 [degF]Pete Alcala MD Work Phone: [facility] CenterGgnpewldjz14-01-4163 09:57-0400Body ocylew35.66 kgPete Alcala MD Work Phone: [facility] CenterScihqoupki24-21-7840 09:57-0400Diastolic blood watnhokd24 mm[Hg]Pete Alcala MD Work Phone: [facility] RoadDmovjikpmx06-38-5665 09:57-0400Heart rate73 /min Pete Alcala MD Work Phone: [facility] RoadXcecyrtfbo23-15-9480 09:57-0400Respiratory rate20 /minPete Alcala MD Work Phone: [facility] RoadKwytcpvbob85-64-1094 09:57-1427CqJ7% (BldA) [Mass fraction]97 %Pete Alcala MD Work Phone: [facility] RoadCublmbjine59-77-6351 09:57-0400Systolic blood yzfxyvtp761 mm[Hg]Pete Alcala MD Work Phone: [facility] RoadXetkcuwmrz05-56-1236 09:53-0400Body xpuzru900.7 cmAannalisa Kunz PA Work Phone: [facility] RoadGoxlrdhbhu00-53-4148 09:53-0400Body mass index (BMI) [Ratio]26 kg/m2Latisha Kunz PA Work Phone: [facility] RoadWvhwlrypwh78-37-6615 09:53-0400Body pupxcv14.56 kgLatisha Kunz PA Work Phone: noSaint [facility] RoadBxgxnfcqrk54-43-6262 09:53-0400Diastolic blood uqmgvksz17 mm[Hg]Latisha Kunz PA Work Phone: [facility] RoadMarajlamed68-31-6990 09:53-0400Heart rate66 /min Latisha Kunz PA Work Phone: [facility] RoadWxpjtdjjwf27-36-5261 09:53-0400Respiratory rate16 /minLatisha Kunz PA Work Phone: NOS[facility] RoadNfmqawwvln10-92-2728 09:53-5128MbD9% (BldA) [Mass fraction]99 %Latisha Kunz PA Work Phone: NOS[facility] RoadYlniwdcpwr00-89-8876 09:53-0400Systolic blood eypmkbbk058 mm[Hg]Latisha Kunz PA Work Phone: [facility] CenterLgafxakjva02-22-2747 08:58-0500Body newgnu848.7 cmPete Alcala MD Work Phone: [facility] CenterJjlrjjzvqj97-12-5031 08:58-0500Body mass index (BMI) [Ratio]25.54 kg/m2Pete Alcala MD Work Phone: [facility] CenterDhltclempa36-56-4377 08:58-0500Body temperature 97.11 [degF]Pete Alcala MD Work Phone: [facility] CenterIzwkvdeglf19-26-9735 08:58-0500Body yipwum00.2 kg Pete Alcala MD Work Phone: [facility] CenterBrzpyugkrw45-51-4544 08:58-0500Diastolic blood hohzhhxb92 mm[Hg]Pete Alcala MD Work Phone: [facility] CenterJxifjcjupt71-80-1398 08:58-0500Heart rate90 /min Pete Alcala MD Work Phone: [facility] CenterQglqekvcxj68-20-6560 08:58-0500Respiratory rate22 /minPete Alcala MD Work Phone: [facility] CenterHsslfrbxby78-64-5088 08:58-9809AdP4% (BldA) [Mass fraction]97 %Pete Alcala MD Work Phone: [facility] CenterOxzbqjajgr49-85-9654 08:58-0500Systolic blood xolhdkka239 mm[Hg]Pete Alcala MD Work Phone: [facility] CenterMfolohbylc30-97-8197 09:16-0500Body eeqlln434.[address] [facility]02-10-2025 09:16-0500Body mass index (BMI) [Ratio]24.7 kg/w5QcgkmdxmwMercy Health St. [facility]02-10-2025 09:16-0500Body pocmbcusbqb43.8 [degF][facility]02-10-2025 09:16-0500Body flbkqi07.[address] [facility]02-10-2025 09:16-0500Diastolic blood uccgzufo63 mm[Hg][facility]02-10-2025 09:16-0500 Heart rate71 /[facility]02-10-2025 09:16-0500 Respiratory rate19 /[facility]02-10-2025 09:16-0500 SaO2% (BldA) [Mass fraction]98 %[facility]02-10-2025 09:16-0500Systolic blood mm[Hg][facility] 11-19-2024 07:00-0500Body mass index (BMI) [Ratio]25.02 kg/m2Pete Alcala MD Work Phone: [facility] CenterBtraprpjbf71-02-8771 07:00-0500Body kagwnqyrpgc52 [degF]Pete Alcala MD Work Phone: [facility] CenterHfdxttfrrj12-69-8222 07:00-0500Body .75 kgPete Alcala MD Work Phone: [facility] CenterOajdhfbywf54-53-4031 07:00-0500Diastolic blood qdhacsso59 mm[Hg]Pete Alcala MD Work Phone: [facility] CenterGfsrgkbpey80-49-4765 07:00-0500Heart rate74 /min Pete Alcala MD Work Phone: [facility] CenterFmdeqeggin39-48-3385 07:00-0003WmS9% (BldA) [Mass fraction]97 %Pete Alcala MD Work Phone: [facility] CenterWmakrqzryd30-76-8483 07:00-0500Systolic blood mm[Hg]Pete Alcala MD Work Phone: [facility] CenterDmoaccpffl74-35-0507 10:55-0400Body cm Case CASTILLO Work Phone: [facility] CenterUyhqeevngt16-05-3162 10:55-0400Body mass index (BMI) [Ratio]23.97 kg/u7SvsdgthCase CASTILLO Work Phone: [facility] CenterJcjpjarsly86-54-1676 10:55-0400Body bzwqdu86.58 kgMattesha CASTILLO Work Phone: noSaint [facility] RoadCkifwbtcch34-77-3083 08:05-0400Body ntgabt654.7 cmPete Alcala MD Work Phone: noSaint [facility] RoadJjrsmdzfze13-83-7663 08:05-0400Body mass index (BMI) [Ratio]25.54 kg/m2Pete Alcala MD Work Phone: noSaint [facility] RoadXtameknngl26-83-7617 08:05-0400Body temperature 97.3 [degF]Pete Alcala MD Work Phone: noSaint [facility] RoadSdmpyirapp69-92-0986 08:05-0400Body xbromd13.2 kg Pete Alcala MD Work Phone: noSaint [facility] RoadTvokatvojp63-04-0966 08:05-0400Diastolic blood lqyhzxuw08 mm[Hg]Pete Alcala MD Work Phone: noSaint [facility] RoadTxjyskumlo70-21-5042 08:05-0400Heart rate75 /min Pete Alcala MD Work Phone: noSaint [facility] RoadYyvkoqyhyv86-96-8872 08:05-0400Respiratory rate22 /minPete Alcala MD Work Phone: noSaint [facility] RoadSjclefkwnh11-75-7199 08:05-6196NfG4% (BldA) [Mass fraction]98 %Pete Alcala MD Work Phone: noSaint [facility] RoadCmdhjhvcbo06-50-6600 08:05-0400Systolic blood hdwdcaay543 mm[Hg]Pete Alcala MD Work Phone: [facility] Encounters Encounter DateEncounter TypeCare ProviderFacilityStart: 09-13-2025 End: 96-61-2627nasvclqcejHgki Naderer MD Work Phone: -[facility] ClydeStart: 09-13-2025 End: 30-49-5430Bekolem encounter procedurePete Alcala MD-[facility] [place] Work Phone: Start: 07-22-2025 End: 30-86-6242gylyxlshobWtwp Naderer MD Work Phone: [facility] Work Phone: Start: 07-22-2025 End: 27-54-2994Bixvwmm encounter procedureSmariela Toth EUNL-BFY-B-[facility] Work Phone: Start: 05-20-2025 End: 55-94-8548Kydeam Davina Alcala MD Work Phone: [facility] FMStart: 05-20-2025 End: 75-62-0841Nmjzxg Davina Alcala MD Work Phone: [facility] FMStart: 05-20-2025 End: 00-48-9058Rgqiyg outpatient visit 25 minutesPete Alcala MD Work Phone: [facility] FMComment on above:First degree atrioventricular block (Primary Dx); DDD (degenerative disc disease), cervical; Mild cognitive impairment; Insomnia secondary to anxietyStart: 05-20-2025 End: 16-49-2163pbxzuihewzLUII NADERERNot AvailableStart: 04-26-2025 End: 87-75-3369KhtqvrPtzg Naderer MD Work Phone: [facility] FMComment on above:AnxietyStart: 03-18-2025 End: 41-75-2554Uxqhpu Diana CASTILLO Work Phone: ANA BELLEVUEStart: 03-18-2025 End: 77-51-1887Okjcrdhenry CASTILLO Work Phone: ANA BELLEVUEStart: 03-18-2025 End: 07-07-2359Xfwgqc outpatient visit 25 minutesLatisha CASTILLO Work Phone: ANA BELLEVUEComment on above:Mild neurocognitive disorder (Primary Dx); Concentration deficitStart: 03-18-2025 End: 11-64-5004wdydrkygnbHERO HILLNot AvailableStart: 03-04-2025 End: 01-25-5027Axydlbl encounter procedureRenan Dennis PhD Work Phone: ana PENNYYComment on above:Mild neurocognitive disorder (Primary Dx); Concentration deficit; Family history of dementia; Anxiety; Major depressive disorder, recurrent, mild (HCC) ([facility]/HCC)Start: 03-04-2025 End: 68-30-6054cpqdiuoyjaNIJG NADERERNot AvailableStart: 03-01-2025 End: 80-91-8162Khuhqmvin Result EncounterChristopher Jeromy DO Work Phone: noMS External Department UnsolicitedStart: 03-01-2025 End: 56-23-9502Hplwaubiw Result EncounterChristopher Jeromy DO Work Phone: noms External Department UnsolicitedStart: 02-16-2025 End: 41-11-0887Qcfbke Espinoza Dennis PhD Work Phone: aNA MURIELUSKYStart: 02-16-2025 End: 97-84-5300Qhteow Espinoza Dennis PhD Work Phone: ana SANDUSKYStart: 02-16-2025 End: 64-17-7124Bftzjtv encounter procedureRenan Dennis PhD Work Phone: ana SANDUSKYComment on above:Mild cognitive impairment (Primary Dx); Concentration deficit; Anxiety; Family history of dementiaStart: 02-16-2025 End: 14-28-1096srviqlgggdEXIFKOSF DENBESTENNot AvailableStart: 02-10-2025 End: 67-55-7064vumhyxlzdqSMFAIGLXTPT HASSETTNot AvailableStart: 02-01-2025 End: 31-77-5426gqrlzuyhwaSBEJQLXBQHQ HASSETTNot AvailableStart: 12-30-2024 End: 08-36-2597Xubujd Davina Alcala MD Work Phone: noms CWM FMStart: 12-30-2024 End: 04-29-1667Aixdjrhenry Alcala MD Work Phone: NOFY CWM FMStart: 12-30-2024 End: 04-61-2059Campyz outpatient visit 15 minutesPete Alcala MD Work Phone: NOXI CWM FMComment on above:Influenza A (Primary Dx) Start: 12-30-2024 End: 31-37-3523gfsirnpdrfRYDE NADERERNot AvailableStart: 12-23-2024 End: 30-41-7086KibkixNrqn Naderer MD Work Phone: noms CWM FMComment on above:Anxiety (Primary Dx)Start: 12-21-2024 End: 67-19-8183riybzwqlgwAqzgvwqzmA[facility] Work Phone: Start: 12-21-2024 End: 47-88-3757Ctijhym encounter procedureE[facility] [place] Work Phone: Start: 12-09-2024 End: 63-91-8973Bmcvworgg Result EncounterPete Alcala MD Work Phone: noms External Department UnsolicitedStart: 12-09-2024 End: 49-59-6845Xxiuwvnlc Result EncounterPete Alcala MD Work Phone: noms External Department UnsolicitedStart: 11-19-2024 End: 10-71-7818Qhgzkz flowsWaylon Alcala MD Work Phone: NOFY CWM FMStart: 11-19-2024 End: 02-09-4021Mczwut flowsWaylon Alcala MD Work Phone: noms CWM FMStart: 11-19-2024 End: 04-08-4655Tjckgn outpatient visit 15 minutesPete Alcala MD Work Phone: NOGX CWM FMComment on above:Medicare annual wellness visit, subsequent (Primary Dx); Memory lossStart: 11-19-2024 End: 75-88-9001Jetlekz encounter procedurePete Alcala MD Work Phone: noms HealthcareStart: 11-19-2024 End: 53-06-1408vwlrpiaojtEFTD NADERERNot AvailableStart: 09-15-2024 End: 91-56-4303Lgrjgd flowsEri CASTILLO Work Phone: noms FB ORTHOPAEDICSStart: 09-15-2024 End: 87-06-9016Hkkbyx flowsEri CASTILLO Work Phone: noms FB ORTHOPAEDICSStart: 09-15-2024 End: 47-75-3112Vkztuy outpatient visit 25 minutesMamaday CASTILLO Work Phone: noms FB ORTHOPAEDICSComment on above:Right arm pain (Primary Dx); Impingement of right shoulder; Acute pain of right shoulderStart: 09-15-2024 End: 09-27-4180ntikfvoxmfYNFFEGP J MEYERNot AvailableStart: 09-14-2024 End: 74-67-0770Xchmduvxf Result EncounterPete Alcala MD Work Phone: noms External Department UnsolicitedStart: 09-14-2024 End: 93-03-5985Ysjssgdrc Result EncounterPete Alcala MD Work Phone: noms External Department UnsolicitedStart: 08-28-2024 End: 95-46-7971Jfblwa Celestine CASTILLO Work Phone: noms FB ORTHOPAEDICSStart: 08-28-2024 End: 65-37-9926Xyuvmo flowsEri CASTILLO Work Phone: noms FB ORTHOPAEDICSStart: 08-28-2024 End: 98-34-2985Vpbgqv outpatient visit 25 minutesCase CASTILLO Work Phone: noms FB ORTHOPAEDICSComment on above:Acute pain of left knee (Primary Dx); Chondromalacia, patella, leftStart: 08-28-2024 End: 84-10-8696vschkqmnajZRNGOYP J MEYERNot AvailableStart: 08-07-2024 End: 27-48-7375Yxcvab flowsEri CASTILLO Work Phone: NONI FB ORTHOPAEDICSStart: 08-07-2024 End: 94-09-6579Whutoc spencerEri CASTILLO Work Phone: NOFD FB ORTHOPAEDICSStart: 08-07-2024 End: 57-48-3420Gkopgs outpatient visit 25 minutesMatttremaineeugenia Weems Shon CASTILLO Work Phone: NOXA FB ORTHOPAEDICSComment on above:Left leg pain (Primary Dx)Start: 08-07-2024 End: 77-45-0585kxrudllpiqESWDYJI J MEYERNot AvailableStart: 07-25-2024 End: 77-08-9839Moonqperu Result EncounterPete Alcala MD Work Phone: noms External Department UnsolicitedStart: 07-25-2024 End: 55-69-5433Zldczkyxv Result EncounterPete Alcala MD Work Phone: NOOB External Department UnsolicitedStart: 07-15-2024 End: 95-86-4793Kmlhzk Davina Alcala MD Work Phone: NOCW CWM FMStart: 07-15-2024 End: 84-35-0367Scybbv Davina Alcala MD Work Phone: NOM[facility] CWM FMStart: 07-15-2024 End: 74-59-7844Jzimde outpatient visit 15 minutesPete Alcala MD Work Phone: [facility] CWM FMComment on above:Insomnia related to another mental disorder (Primary Dx); First degree atrioventricular block; DDD (degenerative disc disease), cervical; Dyslipidemia (CMS/HCC); Encounter for long-term current use of medication; Other fatigue; Osteopenia of neck of right femurStart: 07-15-2024 End: 56-17-2619wjhoxknacwQUGX NADERERNot AvailableStart: 03-24-2023 End: 90-86-1950ngnajwirrzJA PETE A NADERERFacility:U5Oqtem: 03-15-2023 End: 19-26-4777xskfowtdhdGW PETE A NADERERFacility:D3Wxhkr: 09-10-2022 End: 53-62-5148citzmmdwbzHB PETE A NADERERFacility:D9Makvo: 08-10-2022 End: 98-71-1713fjqekgjjjoYN PETE A NADERERFacility:H1 Procedures DateProcedureProcedure DetailPerforming ClinicianStart: 29-01-2177Vxxcvayyqjrozo vitamin b-12Christopher Jeromy DO Work Phone: Start: 68-52-2075ESG CBC WITH AUTO DIFFPete Alcala MD Work Phone: Start: 30-36-1875Xaala shoulder complete minimum 2 viewsMamaday CASTILLO Work Phone: Start: 47-70-2179FT TOMOSYNTHESIS SCREENING BIMarc Cari BREWER Work Phone: Start: 68-08-7238SawibzrhtmzWyxajqz Meyer PA Work Phone: Start: 71-71-1049Jfqggvpebnyayl aspir&/inj major jt/bursa w/o usMattesha CASTILLO Work Phone: Start: 02-70-1515Iyxppiugwo examination knee 1/2 views Case CASTILLO Work Phone: Start: 46-01-9848XX DEXA AXIAL SKELETONPete Alcala MD Work Phone: Start: 66-01-3538OcujabtyxleVjyn Naderer MD Work Phone: Start: 08-38-9601TwpltatrwukOsxe Naderer MD Work Phone: Plan of Treatment DateCare ActivityDetailAuthorStart: 91-22-7878Gdisnured for malignant neoplasm of colonNOMS HealthcareStart: 11-23-2025 End: 87-64-2731Vzjddot encounter bgzkyyvas77/13/2026 10:00 AM EST Office Visit [facility] [address] [place] [address] Pete Alcala MD [address] [place] [address] [facility] CWM FMStart: 01-09-2026Medicare Annual Wellness (AWV)Medicare Annual Wellness (AWV)[facility] HealthcareStart: 17-45-3403Tvdhogbrj for malignant neoplasm of breastMammogramNOMS HealthcareStart: 07-22-2025 End: 33-56-2792Hbbemcb encounter luzlgiwki17/11/2025 9:40 AM EDT Office Visit MORENA ALEMAN [address] [place] [address] Kirsty Toth NP [address] [place] [address] MORENA BELLEVUEStart: 49-77-2506Zhluctxwp vaccinationInfluenza Vaccine (#1)[facility] HealthcareStart: 05-20-2025 End: 51-25-8584Yabnhsb encounter procedureNOMS CWM FMComment on above:Arrived Start: 03-18-2025 End: 47-62-9910Ceebbkg encounter procedureANA BELLEVUEComment on above:Arrived Start: 03-04-2025 End: 91-07-8844Bczzkdz encounter tafpzuyep88/24/2025 10:00 AM EDT Office Visit MORENA DALE [address] [address] aNA SANDUSKYStart: 02-16-2025 End: 30-95-2228Smuhvtl encounter lylhqeczj94/08/2025 10:00 AM EDT Office Visit MORENA DALE [address] [phone] Renan Dennis, PhD [address] [place], [place] [id number] Mild cognitive impairmentANA SANDUSKYComment on above:Mild cognitive impairmentStart: 02-01-2025 End: 54-16-0695Zkflsiy encounter /24/2025 11:00 AM EDT Office Visit MORENA ALEMAN [address] [place] [address], [place] [address] Sally Pinzon, DO [address] [place] [address] MORENA GREYUEStart: 12-30-2024 End: 12-08-7892Irzylms encounter poycjskdg22/19/2025 8:45 AM EST Office Visit [facility] [address] [place] [address] Pete Alcala MD [address] [place] [address] ArrivedNOMS CWM FMComment on above:ArrivedStart: 12-29-2024 End: 67-23-7724Sogjtsb encounter pdnggsymm90/18/2025 2:15 PM EST Office Visit [facility] [address] [place] [address] Pete Alcala MD [address] [place] [address] [facility] CWM FMStart: 12-22-2024 End: 46-23-4438Ojjcywi encounter hzlfvkxgu84/11/2025 1:00 PM EST Office Visit [facility]NA [place] [address] [place] [address] Sally Pinzon, DO [address] [place] [address] MORENA FERRERAtart: 11-19-2024 End: 81-15-0103Lcwcgxb encounter mbedzzamw51/09/2025 10:45 AM EST Office Visit [facility] [address] [place] [address] Pete Alcala MD [address] [place] [address] ArrivedNOMS CWM FMComment on above:ArrivedStart: 10-14-2024 End: 34-48-2859Pwdvitk encounter tygagezfb26/04/2024 9:30 AM EST Office Visit [facility] [address] [place] [address] Pete Alcala MD [address] [place] [address] [facility] C[facility] FMStart: 09-15-2024 End: 05-36-8017Vxjzujs encounter djpedvwna36/05/2024 1:15 PM EST Office Visit [facility] [address] [place] [address] Case Menendez, PA [address] [facility] [address] [place] [address] Right arm pain (Primary Dx)NOM[facility] FB ORTHOPAEDICSComment on above:Right arm pain (Primary Dx)Start: 27-72-8220Wyjwtlosm for malignant neoplasm of breastMammogramNOMS HealthcareStart: 08-28-2024 End: 80-47-4418Micbrmn encounter procedureNOMS FB ORTHOPAEDICSComment on above: Acute hip pain, left (Primary Dx)Start: 08-07-2024 End: 82-45-3809Lmkwqla encounter dimzshtua62/27/2024 10:45 AM EDT Office Visit [facility] [address] [place] [address] Case Menendez, PA [address] [facility] [address] [place] [address] Left leg pain (Primary Dx)[facility] FB ORTHOPAEDICSComment on above:Left leg pain (Primary Dx)Start: 07-15-2024 End: 79-03-0318Xjdqu metabolic 1998 panel - Serum or PlasmaBasic metabolic panel Lab Routine Encounter for long-term current use of medication Expected: 2023 (Approximate), Expires: 07/15/2025[facility] Work Phone: Comment on above:Expected: 07/15/2024 (Approximate), Expires: 07/15/2025Start: 07-15-2024 End: 63-41-8081MOD W Auto Differential panel - BloodCBC and differential Lab Routine Encounter for long-term current use of medication Expected: 07/15/2024 (Approximate), Expires: 07/15/2025[facility] HealthcareComment on above:Expected: 07/15/2024 (Approximate), Expires: 07/15/2025Start: 07-15-2024 End: 77-71-0114GXP Skeletal system Views for bone densityDEXA bone density Imaging Routine Osteopenia of neck of right femur Expected: 07/15/2024, Expires: 07/15/2025[facility] HealthcareComment on above:Expected: 07/15/2024, Expires: 07/15/2025Start: 07-15-2024 End: 21-26-7049Lqohyuh function 2000 panel - Serum or PlasmaHepatic function panel Lab Routine Encounter for long-term current use of medication Expected: 07/15/2024 (Approximate), Expires: 07/15/2025[facility] HealthcareComment on above: Expected: 07/15/2024 (Approximate), Expires: 07/15/2025Start: 07-15-2024 End: 51-20-8336Ubhsz 1996 panel - Serum or PlasmaLipid panel Lab Routine Dyslipidemia ([facility]/HCC) Expected: 07/15/2024 (Approximate), Expires: 07/15/2025 [facility] HealthcareComment on above:Expected: 07/15/2024 (Approximate), Expires: 07/15/2025Start: 07-15-2024 End: 87-11-5791Vfyifuddbak [Units/volume] in Serum or PlasmaTSH Lab Routine Other fatigue Expected: 07/15/2024 (Approximate), Expires: 07/15/2025[facility] HealthcareComment on above:Expected: 07/15/2024 (Approximate), Expires: 07/15/2025Start: 07-15-2024 End: 84-42-6316Gturhwa encounter muqaajsdw92/04/2024 8:00 AM EDT [facility] [address] [place] [address] Pete Alcala MD [address] [place] [address] ArrivedINTERMOUNTAIN MEDICAL CENTERM FMComment on above:ArrivedStart: 55-53-5907Ttwroftpm vaccinationInfluenza Vaccine (#1)[facility] HealthcareStart: 05-05-2024Medicare Annual Wellness (AWV)Medicare Annual Wellness (AWV)[facility] HealthcareStart: 1950 Screening for malignant neoplasm of colonUNIVERSITY OF [facility]H [facility] HealthcarePatient EducationFlu in adults - Discharge [facility] Work Phone: XR Hip - left 3 ViewsXR hip left 2 or 3 views Imaging Routine Left leg pain 08/07/2024 11:00 [facility] Work Phone: Immunizations Immunization DateImmunizationNotesCare [id number] virus vaccine, unspecified formulationPete Alcala MD Work Phone: [facility] [id number] virus vaccine, unspecified formulationPete Alcala MD Work Phone: [facility] Healthcare Payers DatePayer CategoryPayerPolicy ID2017Medicare [id number] [id number] [id number] 2.16840.1.535156.3.57[id number] 2.16.840.1.883837.3.57[id number] 2.16.840.1.500388.3.57[id number] 2.16.840.1.194294.3.57[id number] 2.16.840.1.817241.3.57[id number] 2.16.840.1.536055.3.57[id number] 2.16.840.1.317486.3.57[id number] 2.16.840.1.021983.3.57[id number] 2.16.840.1.120219.3.57[id number] 2.16.840.1.827994.3.57[id number] 2.16.840.1.033984.3.57[id number] 2.16.840.1.073958.3.57[id number] 2.16.840.1.052203.3.57[id number] 2.16.840.1.175407.3.579.2.965032-58-6453Gqwkjfz8643002 2.16.840.1.493904.3.57[id number] 2.16.840.1.628226.3.57[id number] 2.16.840.1.034210.3.57[id number] 2.16.840.1.938339.3.57[id number] 2.16.840.1.813412.3.579.2.1259 Social History DateTypeDetailFacilityStart: 02-03-2024 End: 68-06-3421Trfdzex smoking status NHISNever smoked tobaccoNOMS Healthcare Start: 56-21-4643Ncfhlli use and exposureSmokeless tobacco non-userNOMS HealthcareStart: 07-15-2024 End: 23-03-6107Uuvbywzxb beverage intakeLifetime non-drinker (finding)[facility] HealthcareStart: 08-07-2024 End: 36-89-9575Jioscgh of Social functionNOMS HealthcareStart: 08-07-2024 End: 09-22-7773Woxgyto use panelNOMS HealthcareStart: 02-51-5151Hij assigned at birthFeWest[facility] HealthcareStart: 68-07-9434Dybanl identityIdentifies as female gender (finding)[facility] HealthcareStart: 47-96-7960Ypihax orientationHeterosexual (finding)NOM HealthcareTobacco smoking status NHISUnknown if ever smoked [facility] Work Phone: Start: [phone] (finding)[facility] Medical Centertart: [phone] often do you need to have someone help you when you read instructions, pamphlets, or other written material from your doctor or pharmacy [SILS]NeverNOMS HealthcareDo you belong to any clubs or organizations such as yarsanism groups, unions, fraternal or athletic groups, or school groups?YesNOMS HealthcareAre you now , , , , never or living with a partner?MarriedNOMS HealthcareHow often to you have a drink containing alcohol?NeverNOMS HealthcareHow hard is it for you to pay for the very basics like food, housing, medical care, and heating Somewhat hardNOMS HealthcareDo you feel stress - tense, restless, nervous, or anxious, or unable to sleep at night because yourmind is troubled all the time - these days [OSQ]To some extentNOCO Healthcare(I/We) worried whether (my/our) food would run out before (I/we) got money to buy more.Never trueNOSaint Luke[facility] In the past 12 months, was there a time when you were not able to pay the mortgage or rent on time?NoNOMS Healthcare Functional Status VeryIdiqwz[id number] score [AUDIT-C]0 12/25/2024 8:34 PM EST Nearhood, [facility] CenterdonnieGateway Medical CenterJmwoimfgdn67-17-6265Ciu often do you have a drink containing alcohol?Never 12/25/2024 8:34 PM EST Nearhood, [place]arfahad JoyceSSM Saint [facility] Health CenterSwjcufpedn18-76-7579Duwajjyfjx statusPatient does not drink 12/25/2024 8:34 PM EST [place] Patient does not drinkSSM Saint Mary's Health CenterJoqksgjvvh20-09-2217Zon often do you have 6 or more drinks on 1 occasion?Never 12/25/2024 8:34 PM EST NearnewfoundlandLamar Saint Mary's Health CenterSickkdpdlb88-43-9594Afcppvj Health Questionnaire 2 item (PHQ-2) [Reported][facility] Clinical Notes 07-15-2024 to 07-22-2025 Note Date & [id number] Evaluation note* Diagnosis Onset Date Resolution Status Admit Date Mild cognitive impairment chronicSeptember 2024 9:43amAnxietyinactiveSeptember 2024 9:43am [facility] Work Phone: [phone] 989-833307-10-2025 History of Present illness Narrative* Pete Alcala MD - 05/20/2025 10:35 AM EDTAssociated Problem(s): Mild cognitive impairment Symptoms stable and follow with neurology. * Pete Alcala MD - 05/20/2025 10:35 AM EDTAssociated Problem(s): Insomnia secondary to anxiety Sleeping well with xanax and continue. * Pete Alcala MD - 05/20/2025 10:35 AM EDTAssociated Problem(s): First degree atrioventricular block No palpitations and monitor. * Pete Alcala MD - 05/20/2025 10:35 AM EDTAssociated Problem(s): DDD (degenerative disc disease), cervical Occasional pain but mild and use OTC PRN. * Pete Alcala MD - 05/20/2025 10:00 AM EDT Images from the original note were not included. Subjective Patient ID: Dante Carrillo is a 74 y.o. female who presents for Follow-up (6M). Follow up memory loss, heart block, neck pain, and insomnia. Memory symptoms stable. Seen by neurology and had extensive work up including labs, MRI, and neurophych evaluation. MRI and labs normal. Neuropsych eval showed mild cognitive impairment worsened by attention deficit, depression and anxiety. Neurology monitoring and no new medication. No palpitations or skipping beats. Not lightheaded ordizzy. No heart racing. Sleeping well. Typically able to fall asleep and stay asleep. Wakes up rested in am. Some nights notice thought racing and feels wound up when going to bed. Uses xanax few times a month and helps sleep when needed. Remains active and exercises several days a week. Neck pain s table. Mild stiffness in base neck and top shoulders. Uses OTC PRN and helps when needed. Review of Systems Respiratory: Negative for cough, [...] Addressed This Visit First degree atrioventricular block - Primary No palpitations and monitor. DDD (degenerative disc disease), cervical Occasional pain but mild and use OTC PRN. Insomnia secondary to anxiety Sleeping well with xanax and continue. Mild cognitive impairment Symptoms stable and follow with neurology. documented in this encounterSSM Saint Mary's Health [id number] History of Present illness Narrative* JONATHAN Rodgers - 03/18/2025 10:00 AM EDT Images from the original note were not included. Chief Complaint: memory impairment Subjective Dante Carrillo, 74 y.o., female MEMORY -neuropsych, labs, and MRI to review -memory is the same, denies worsening -reports she feels things just leave her mind -sister reports she does forget conversations -trouble with working a computer -reports it's mainly remembering passwords and logins -denies any ADL trouble -continues to drive, she feels without any issue -sister states there has been a couple times she has not remembered her way -denies any mood swings or agitation -sleeping well at night -averages 8 hours -denies any vivid dreams or hallucinations Acute Neurological Problem This is a new problem. The current episode started more than 1 month ago. The problem has been unchanged. Pertinent negatives include no abdominal pain, arthralgias, chest pain, coughing, diaphoresis, fatigue, fever, headaches, myalgias, nausea, neck pain, numbness, vertigo, visual change, vomitingor weakness. Review of Systems Constitutional: Negative for appetite change, diaphoresis, fatigue and fever. Respiratory: Negative for cough, shortness of breath and wheezing. Cardiovascular: Negative for chest pain, palpitations and leg swelling. Gastrointestinal: Negative for abdominal pain, constipation, diarrhea, nausea and vomiting. Musculoskeletal: Negative for arthralgias, back pain, gait problem, myalgias and neck pain. Neurological: Negative for dizziness, vertigo, tremors, syncope, weakness, light-headedness, numbness and headaches. Memory loss Psychiatric/Behavioral: Positive for confusion. Past Medical History: Diagnosis Date AV block, 1st degree Chronic neck pain Dyslipidemia (CMS/HCC) Insomnia due to mental disorder Osteopenia of neck of right femur Palpitations Dr. Juju Sheppard Post-menopausal Seasonal allergic rhinitis due to pollen Past Surgical History: Procedure Laterality Date ANKLE SURGERY Left DENTAL IMPLANT 2021 DENTAL SURGERY MT KNEE SCOPE,DIAGNOSTIC Left 2014 Dr. Iraheta TRIGGER FINGER RELEASE 05/2011 TRIGGER FINGER RELEASE Right 2014 Dr. Iraheta Family History Problem Relation Name Age of Onset Hyperlipidemia Mother Hypertension Mother Other (Non-hodgkins lymphoma) Mother Hypertension Father Cancer Father No Known Problems Sister Kidney disease Maternal Grandmother Hypertension Other Cancer Other Coronary artery disease Other Social History Tobacco Use Smoking status: Never Smokeless tobacco: Never Substance Use Topics Alcohol use: Never Allergies: Bactrim [sulfamethoxazole-trimethoprim] and Sulfa antibiotics Vitals: 03/18/25 0953 BP: 122/76 Pulse: 66 Resp: 16 SpO2: 99% Body mass index is 26 kg/m . Weight: 171 lb Neurologic exam: Mental status: Awake, alert to person, place and time. MOCA: 30 Language is fluent without aphasia. Attention and concentration are normal. Fund of knowledge is appropriate for level of education. Cranial nerves: CN II: Visual acuity is normal. Visual diaz full to confrontation. CN III, IV, : pupils equal round and reactive to light. Extraocular movements intact. No ptosis present. CN V: Facial sensation is normal. CN VII: Full and symmetric facial movement. CN VIII: Hearing is normal to finger rub bilaterally: CN IX and X: Palate elevates symmetrically. CN XI: Shoulder shrug is normal bilaterally. CN XII: Tongue is midline without atrophy or fasciculation. 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 LUE Strength deltoid , biceps , triceps , wrist extensors , wrist flexor , railway traction line worker strength 5/5. RLE Strength illopsoas, quadriceps, tibialis anterior, and gastrocnemius strength 5/5. LLE Strength illopsoas, quadriceps, tibialis anterior, and gastrocnemius strength 5/5. Normal tone x4 extremities. Bulk is normal. Sensory: Sensation is intact to light touch throughout Four extremities. Reflexes: RUE biceps reflex 2+ brachioradialis reflex 2+ . LUE biceps reflex 2+ brachioradialis reflex 2+ . RLE knee reflex 2+ . LLE knee reflex 2+ . Lane's sign negative. Coordination: Kbxewo-sq-rvme testing and rapid alternating movements are normal Gait: Normal Review and summary of old records: Neuropsychology 03/04/2025: variable attention at times, which may have interfered with optimal performance. Findings interpreted with caution. Neurodegenerative process was thought to be low likelihood due to patient's preservation of ADL/IADLs. Presentation and history was thought to be most consistent with mild cognitive impairment exacerbated by fluctuating attention. Recommendation to repeat evaluation in 12-18 months. Brain MRI with and without contrast 02/10/2025: No significant atrophy seen. Scattered cerebral whitematter T2/FLAIR hyperintensities, nonspecific, although most likely due to chronic small vessel ischemic disease Blood work 03/01/2025: vitamin B12 702 MOCA at [facility] on 02/01/25: 19/30 Thyroid stimulating hormone on 12/09/2024: Normal Assessment/Plan Diagnoses and all orders for this visit: Mild cognitive impairment It is my impression that the patient has memory impairment. The memory impairment does seem to cause the patient has some stress and she also has a family history of Alzheimer's in her mother. [facility] cognitive [facility] at [facility] on 02/01/2025 was 19/30. TSH is recently normal. BrainMRI revealed some nonspecific white matter changes and was otherwise unremarkable. Neuropsychology evaluation was limited due to variable levels of attention but findings were most consistent with mild cognitive impairment exacerbated by fluctuating attention. Neuropsych recommended repeat neuropsych testing in 12-18 months. Blood work was unremarkable. Plan: - I reviewed brain MRI - I reviewed blood work - I reviewed neuropsychology evaluation - Will continue to monitor memory clinically - I will update MOCA at follow up Pt has been fully educated on their diagnosis, lab results, treatment options, follow up plan, return instructions, and discussion of mental health issues Latisha Kunz PA-C documented in this encounterSSM Saint [facility] Health [id number] History of Present illness Narrative* Renan Denins, PhD - 03/04/2025 10:00 AM EDT Images from the original note were not included. Neuropsychology Renan Dennis, PhD NEUROPSYCHOLOGICAL EVALUATION Dante Carrillo is a 74 y.o. female referred for neuropsychological evaluation to assist with facilitating and informing medical differential diagnosis and clinical decision-making. The following information was obtained during an interview with the patient, as well as review of available records. PRESENTING PROBLEM: Changes in memory over the past several months that patient feels are largely anxiety-related. Alsohad one isolated incident during which she had no recollection as to where she was at. Occasionallyloses train of thought and thinks too quickly. Needs to reorganize thoughts at times. Fluctuating at tention/concentration. Otherwise, remains independent in ADLs, household responsibilities, finances, medication, and driving. Less physically active but does continue to ride her bicycle. 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 Sleeping well overall. No pain complaints. No prior neurological history. 02/11/24 brain MRI nonacute with CSVID. 02/01/25 MoCA . Family neurological history includes seizures and possible dementia (mother). Psychiatric history notable for anxiety, managed by primary care provider. Denied any history of alcohol/substance abuse or smoking. [place] language [place]. Completed a bachelor's degree. 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 Resides with of 50 years and their youngest daughter. Three total children. MEDICAL HISTORY/MEDICATION: MEDICATIONS: Current Outpatient Medications Medication Instructions ALPRAZolam (XANAX) 0.25 mg, Oral, 3 times daily PRN calcitriol (ROCALTROL) 0.25 mcg, Daily ferrous sulfate 325 mg, Daily with breakfast latanoprost (Xalatan) 0.005 % ophthalmic solution INSTILL 1 DROP INTO BOTH EYES EVERY EVENING DIRECTED [facility] Natural Products (Glucosamine Chond Complex/MSM) tablet Orally Multiple Vitamins-Minerals (MULTIVITAMIN WOMEN 50+ PO) Take by mouth vitamin C 1,000 mg, Daily ASSESSMENT: Presented to appointment on time, alert, and Ox3. Rapport easily established. Good eye contact. Socially appropriate during conversation and testing. Hearing adequate for current purposes. Ambulated independently. Purpose for current evaluation explained and patient agreed to participate. Performance validity testing revealed variable attention at times which may have interfered with optimal performance. Vision/Visuoconstruction: Binocular near-point visual acuity 20/30. Visual diaz full to confrontation. Visuoconstruction 7th %ile. Nonverbal abstract reasoning 10th %ile. Copy of a complex geometric design >16th %ile. Motor/Speed of Processing: Right-handed. Application Development Project Manager strength 84th %ile with right- hand, 73rd %ile with left. Speeded graphomotor transcoding 89th %ile. Attention/Working Memory: Auditory attention/working memory 1st %ile (5 digits forward, 4 digits backward, 2 digits during sequencing). Speeded visual scanning/attention 73rd %ile. Speeded visual divided attention 8th %ile. Speech/Language: Expressive speech fluent and absent of paraphasic errors. Comprehension adequate for current purposes. Single-word reading 37th %ile. Generative naming to phonemic cues 8th %ile, 1st%ile to semantic cues. Confrontation naming 34th %ile. Verbal abstract reasoning 2nd %ile. Learning and Memory: Learning of a word list 3rd %ile (2-3-6-6-7), delayed recall 2nd %ile. Recognition discriminability 31st %ile. Forced-choice 16/16. Immediate and delayed recall for prose passages <1st %ile. Recognition 3-9th %ile. Immediate recall for a variety of geometric figures 50th %ile, delayed 1st %ile. Recognition 10-16th %ile. Executive Functioning: Novel problem-solving and cognitive flexibility >16th %ile, 3/6 categories completed in 64 sorts. Responding absent of significant perseveration. Failed to maintain set x1. Emotional Functioning: Mild depression and minimal anxiety. Denied any thoughts of self-harm. FINDINGS AND RECOMMENDATIONS: CONCLUSIONS: 1. Estimated average pre-morbid intellectual functioning. 2. Preserved visual acuity without signs of visual field cut or neglect. 3. Well preserved bilateral gross motor function. 4. Mild depression and minimal anxiety. OPINION: Current neuropsychological evaluation demonstrates variable attention at times which may have interfered with optimal performance. Findings are therefore interpreted with caution. Considering preservation of ADL/IADLs, the likelihood of a neurodegenerative process is low. Overall presentation and history is most consistent with Mild Cognitive Impairment exacerbated by fluctuating attention, depression, and anxiety. RECOMMENDATIONS: Results and recommendations forwarded to treating physician for review during their next appointment. Patient encouraged to contact this office with any additional questions. No activity restrictions from a cognitive standpoint. Memory strategies: Regularly and frequently review information that must be remembered. Link new information in as many ways as possible to already known information. This strategy creates several avenues for remembering the information later. Utilize external memory sources such as lists, date books, calendars, and pocket-size recorders forinformation that must be remembered. A smartphone is a useful tool in consolidating all this information into one source. Active listening, such as repeating and summarizing information back to presenter when learning important information for future recall may be beneficial as opposed to simply passive listening. Establish a consistent structured routine. Regular physical activity for stress relief, improved cognitive efficiency, and optimal sleep. Attempt new hobbies and skills, keep learning. Proper nutritional intake, such as Mediterranean-style diet, while paying close attention to food sourcing. Neuropsychological re-evaluation in 12-18 months to monitor progression, or lack of, and update recommendations. Thank you for allowing me to participate in the care of this individual. Please contact me with [employer] at [phone]. documented in this encounterSSM Saint [facility]'s Health [id number] History of Present illness Narrative* Renan Dennis, PhD - 02/16/2025 10:00 AM EDT Images from the original note were not included. Renan Dennis, PhD NEUROBEHAVIORAL STATUS EXAMINATION Dante Carrillo is a 74 y.o. female referred for neuropsychological evaluation to assist with facilitating and informing medical differential diagnosis and clinical decision-making. The following information was obtained during an interview with the patient, as well as review of available records. PRESENTING PROBLEM AND HISTORY Changes in memory over the past several months that patient feels are largely anxiety-related. Alsohad one isolated incident during which she had no recollection as to where she was at. Also reported that her thoughts occasionally disappear, she thinks too quickly, requires to reorganize thoughts at times, and fluctuating attention/concentration. Otherwise, remains independent in ADLs, householdresponsibilities, finances, medication, and driving. Less physically active but does continue to ride her bicycle. 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 Sleeping well overall. No pain complaints. No prior neurological history. 02/11/24 brain MRI nonacute with CSVID. 02/01/25 MoCA . Family neurological history includes seizures and possible dementia (mother). Psychiatric history notable for anxiety, managed by primary care provider. Denied any history of alcohol/substance abuse or smoking. [place] language [place]. Completed a bachelor's degree. 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 Resides with of 50 years and their [...] DROP INTO BOTH EYES EVERY EVENING DIRECTED [facility] Natural Products (Glucosamine Chond Complex/MSM) tablet Orally [...] of this individual. Please contact me with [employer] at [phone]. documented in this encounterSSM Saint Mary's Health [id number] History of Present illness Narrative* Pete Alcala MD - 12/30/2024 9:33 AM ESTAssociated Problem(s): Influenza A Recent influenza but symptoms have resolved. Patient did receive flu vaccine in fall. Monitor. * Pete Alcala MD - 12/30/2024 8:45 AM EST Images from the original note were not included. Subjective Patient ID: Dante Carrillo is a 74 y.o. female who presents for Follow-up (Urgent care f/u). Urgent care follow up from 12/21 for influenza A. Developed cough and SOB for several days prior. Body aches and chills but no temp. Severe fatigue and run down. Concerned of covid or influenza and tourgent care. Positive for influenza A. Patient was [...] vaccine in fall. Monitor. documented in this encounterSSM Saint [facility] Health [id number] History of Present illness Narrative* Pete Alcala MD - 11/19/2024 11:29 AM ESTAssociated Problem(s): Memory loss Recently with increased forgetfulness and mom had dementia. Refer to neurology for evaluation. * Pete Alcala MD - 11/19/2024 11:29 AM ESTAssociated Problem(s): Medicare annual wellness visit, subsequent Due for labs. Discussed proper diet and regular aerobic exercise. Need aerobic exercise 5-6 days a week for 30 minutes at a time. Smaller portions and limit total calories. Colonoscopy every 10 years. Tetanus every 10 years. Advised not to smoke. * Pete Alcala MD - 11/19/2024 10:45 AM EST Images from the original note were not included. Subjective Patient ID: Dante Carrillo is a 73 y.o. female who presents for No chief complaint on file.. Presents for medicare annual wellness visit. Weight unchanged over the past year. Active and goes to exercise class few days a week. Rides bike and walks. Tries to watch diet and eat healthy. Increased fruits and vegetables. Smaller portions and limits snacking. Tries to limit total daily calories.Due for labs. Concerned about memory. Notice increased forgetfulness and misplacing things. Not organized. 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 Recently had episode where drove from [place] to [place] and had hard time finding yarsanism. At one point during performance was supposed [...] Ambulatory referral to Neurology documented in this encounterSSM Saint [facility]'s Health [id number] History of Present illness Narrative* JONATHAN Roche - 09/15/2024 1:15 PM EST Images from the original note were not included. HISTORY OF PRESENT ILLNESS: EST PT Dante Carrillo is an 73 y.o. @ female. [...] for requiring urgent evaluation. documented in this encounterSSM Saint Mary's Health CenterFspitgacqm86-25-2909 History of Present illness Narrative* JONATHAN Roche - 08/28/2024 9:00 AM EDTAssociated Order(s): L Inj/Asp: L knee Post-Procedure Diagnose(s): Chondromalacia, patella, left Images from the original note were not included. HISTORY OF PRESENT ILLNESS: EST PT Dante Carrillo is an 73 y.o. @ female. [...] PREVIOUS (L) KNEE SCOPE [address] IRAHETA PAIN MEDIAL KNEE- TENDER TO TOUCH- DENIES [...] DROP INTO BOTH EYES EVERY EVENING DIRECTED [facility] Natural Products (Glucosamine Chond Complex/MSM) tablet Orally [...] for requiring urgent evaluation. documented in this encounterSSM Saint Mary's Health CenterTedhtrbwlj16-09-4011 History of Present illness Narrative* JONATHAN Roche - 08/07/2024 10:45 AM EDT Images from the original note were not included. NAME: Dante Carrillo : 1950 HISTORY OF PRESENT ILLNESS: NEW PT Dante Carrillo is an 73 y.o. @ female. EST PT WITH NEW C/O LT HIP PAIN ~2-3WKS- NO KNOWN INJURY XRAY LT HIP TODAY EPIC 08/07/24 C/O ACHINESS- DENIES SHARP PAIN- PAIN DOES RADIATE DOWN TO KNEE- PT STATES SYMPTOMS HAVE IMPROVED -DENIES N/T- DENIES PAIN WITH BIKING- SOME DIFFICULTY [...] SURGERY Left DENTAL IMPLANT 2021 DENTAL SURGERY MT KNEE SCOPE,DIAGNOSTIC Left 2014 Dr. Iraheta TRIGGER FINGER RELEASE 05/2011 TRIGGER FINGER RELEASE Right 2014 Dr. Iraheta SOCIAL HISTORY: Social History Occupational History Not [...] DROP INTO BOTH EYES EVERY EVENING DIRECTED [facility] Natural Products (Glucosamine Chond Complex/MSM) tablet Orally Multiple Vitamins-Minerals (MULTIVITAMIN WOMEN 50+ PO) Oral predniSONE (Deltasone) 20 MG tablet Take 2 tablets (40 mg) by mouth Daily for 5 days, THEN 1 tablet(20 mg) Daily for 5 days. Take with [...] Recheck in 3 wks.. consider eval of backif unchanged. Questions answered in laymen terms at the bedside. The diagnosis, home exercise plan and any ongoing restrictions/ recommendations reviewed. If unable to be reached in office, I recommend evaluation at nearest Emergency Room if any symptoms worsened or new symptoms develop for requiring urgent evaluation. documented in this encounterSSM Saint Mary's Health CenterBmfjurcgqb01-06-4355 History of Present illness Narrative* Pete Alcala MD - 07/15/2024 8:41 AM EDTAssociated Problem(s): Insomnia related to another mental disorder Sleeping well with medication and use PRN. * Pete Alcala MD - 07/15/2024 8:41 AM EDTAssociated Problem(s): First degree atrioventricular block No palpitations and monitor. * Pete Alcala MD - 07/15/2024 8:41 AM EDTAssociated Problem(s): DDD (degenerative disc disease), cervical Occasional pain but mild and use OTC PRN. * Pete Alcala MD - 07/15/2024 8:00 AM EDT Images from the original note were not included. Subjective Patient ID: Dante Carrillo is a 73 y.o. female who [...] and helps sleep when needed. Remains active andexercises several days a week. Neck pain stable. [...] fatigue Relevant Orders TSH documented in this encounterN[facility] HealthcareEvaluation note* Diagnosis First degree atrioventricular block- [...] Date Resolution Status Admit Date Influenza A acuteFebruary 2024 9:08amContact with and (suspected) exposure to covid-19 noneactiveFebruary 2024 9:08am [facility] Work Phone: Evaluation note* Diagnosis First degree [...] neurological diseases documented in this encounter [facility]* [...] Primary Influenza with other respiratory manifestations Mild neurocognitive disorder- Primary Concentration deficit Family history of dementia Family history of other neurological diseases Anxiety Anxiety state, unspecified Major depressive disorder, recurrent, mild (HCC) (CMS/HCC) Major depressive disorder, recurrent episode, mild documented in this encounter [facility]* [...] Primary Influenza with other respiratory manifestations Mild neurocognitive disorder- Primary Concentration deficit documented in this encounter [facility]* [...] cervical Degeneration of cervical intervertebral disc Dyslipidemia Other and unspecified hyperlipidemia Encounter for long-term current use of medication Other fatigue Osteopenia of neck of right femur Medicare annual wellness visit, subsequent- Primary Memory loss Influenza A- Primary Influenza with other respiratory manifestations Anxiety Anxiety state, unspecified documented in this encounter [...] cervical Degeneration of cervical intervertebral disc Dyslipidemia Other and unspecified hyperlipidemia Encounter for long-term current use of medication Other fatigue Osteopenia of neck of right femur Medicare annual wellness visit, subsequent- Primary Memory loss First degree atrioventricular block- Primary DDD (degenerative disc disease), cervical Degeneration of cervical intervertebral disc Mild cognitive impairment Mild cognitive impairment, so stated Insomnia secondary to anxiety documented in this encounter [facility]* Diagnosis Onset Date Resolution Status Admit Date Mild cognitive impairment chronicSeptember 2024 9:43am [facility] Work Phone: [place] for referral (narrative)No reason for referral information availableFirelands [facility] Work Phone: [place] for visit Narrative* Consultation (Routine) - ClosedSpecialtyDiagnoses / ProceduresReferred By ContactReferred To Contact Psychology Diagnoses Mild cognitive impairment Procedures [place] OFFICE/OUTPATIENT [facility] 60 MINUTES Sally Pinzon DO [address] [place] [address] Phone: tel: fax: Renan Dennis, PhD [address] [place] [phone] Phone: tel: fax: Referral IDStatusReasonStart DateExpiration DateVisits RequestedVisits [id number] Specialty Services Required / [facility] Healthcare Summary Purpose Family History Relationship Condition Age at Onset Recorded Date/T karina mother Hypertension Unknown High blood cholesterolUnknownNon-Hodgkin lymphomaUnknownfatherHypertension UnknownMalignant neoplasmUnknownmaternal grandmotherDisorder of kidneyUnknown Advance Directives Advance Directive Response Recorded Date/ Time Advance Directives No December 9:06am Advance Directive Response Recorded Date/ Time Advance Directives No December 10:06am Chief Complaint and Reason for Visit Chief Complaint Admit Date Cough, Congestion December 21, 2024 9:08am Reason for Visit Admit Date Influenza A December 21, 2024 9:08am Contact with and (suspected) exposure to covid-19 December 21, 2024 9:08am Reason for Visit Admit Date Mild cognitive impairment July 9:43am Chief Complaint Admit Date right shoulder pain September 13, 2025 1 0:02am Reason for Visit Admit Date Mild cognitive impairment July 9:43am Anxiety July 22, 2025 9:43am Additional Source Comments INFORMATION SOURCE (unrecogn ized section and content) DATE CREATED AUTHOR 03/25/2023 [facility] DATE CREATED AUTHOR AUTHOR'S ORGANIZ ATION 05/24/2025 [facility] EPIC Care Teams (unrecognized sec tion and content) Team MemberRelationshipSpecialtyStart DateEnd Date Pete Alcaal MD [address] [place] [phone] PCP - GeneralFamily Medicine12/17/23Team MemberRelationshipSpecialtyStart DateEnd Date Pete Alcala MD [address] [place] [address] PCP - Generalmily Medicine12/17/23Team MemberRelationshipSpecialtyStart DateEnd Date Pete Alcala MD [address] [place] [address] PCP - GeneralFamily Medicine12/17/23Team MemberRelationshipSpecialtyStart DateEnd Date Pete Alcala MD [address] [place] [address] PCP - Generalmily Medicine12/17/23Team MemberRelationshipSpecialtyStart DateEnd Date Pete Alcala MD [address] [place] [address] PCP - Generalmily Medicine12/17/23Team MemberRelationshipSpecialtyStart DateEnd Date Pete Alcala MD [address] [place] [address] PCP - [facility] Medicine12/17/23Team MemberRelationshipSpecialtyStart DateEnd Date Pete Alcala MD [address] [place] [address] PCP - [facility] Medicine12/17/23Team MemberRelationshipSpecialtyStart DateEnd Date Pete Alcala MD [address] [place] [address] PCP - [facility] Medicine12/17/23Team MemberRelationshipSpecialtyStart DateEnd Date Pete Alcala MD [address] [place] [address] PCP - [facility] Medicine12/17/23 Team Status: Active Member Role Status Dates Pete Alcala MD Primary Care Provider Active Team Status: Inactive Member Role Status Dates Pete Alcala MD Primary Care Provider Active S tart: December 21, 2024 End: December 21amelia Ibrahim APRNAtira ProviderActiveStart: December 21, 2024 End: December 21, 2024Team MemberRelationshipSpecialtyStart DateEnd Date Pete Alcala MD [address] [place] [address] PCP - [facility]12/17/23 Pete Alcala MD [address] [place] [address] PCP - [facility]12/18/24Team MemberRelationshipSpecialtyStart DateEnd Date Pete Alcala MD [address] [place] [address] [facility]/17/23 Pete Alcala MD [address] [place] [address] PCP - [facility]12/18/24Team MemberRelationshipSpecialtyStart DateEnd Date Pete Alcala MD [address] [place] [address] PCP - [facility]12/17/23 Pete Alcala MD [address] [place] [address] PCP - [facility]12/18/24Team MemberRelationshipSpecialtyStart DateEnd Date Pete Alcala MD [address] [place] [address] [facility]12/17/23 Pete Alcala MD [address] [place] [address] PCP - [facility]12/18/24 Sally Pinzon DO [address] [address] Referring PhysicianNeurology02/01/25Team MemberRelationshipSpecialtyStart DateEnd Date Pete Alcala MD [address] [place] [address] PCP - GeneralFamily Medicine12/17/23 Pete Alcala MD [address] [place] [address] PCP - [facility]12/18/24 Sally Pinzon DO [address] [place] [address] Referring PhysicianNeurology02/01/25Team MemberRelationshipSpecialtyStart DateEnd Date Pete Alcala MD [address] [place] [address] PCP - GeneralFamily Medicine12/17/23 Pete Alcala MD [address] [place] [address] PCP - [facility]12/18/24 Sally Pinzon DO [address] [place] [address] Referring PhysicianNeurology02/01/25Team MemberRelationshipSpecialtyStart DateEnd Date Pete Alcala MD [address] [place] [address] PCP - GeneralFamily Medicine12/17/23 Pete Alcala MD [address] [place] [address] PCP - [facility]12/18/24 Sally Pinzon DO [address] [place] [address] Referring PhysicianNeurology02/01/25Team MemberRelationshipSpecialtyStart DateEnd Date Pete Alcala MD [address] [place] [address] [facility] - [facility]12/17/23 Pete Alcala MD [address] [place] [address] PCP - [facility]12/18/24 Sally Pinzon DO [address] [place] [address], [place] [address] Referring PhysicianNeurology02/01/25Te MemberRelationshipSpecialtyStart DateEnd Date Pete Alcala MD [address] [place] [address] [facility]CP - [facility]12/17/23 Pete Alcala MD [address] [place] [address] PCP - [facility]12/18/24 Sally Pinzon DO [address] [place] [address] Referring PhysicianNeurology02/01/25Team MemberRelationshipSpecialtyStart DateEnd Date Pete Alcala MD [address] [place] [address] PCP - Generalmily Medicine12/17/23 Pete Alcala MD [address] [place] [address] PCP - [facility]12/18/24 Sally Pinzon DO [address] [place] [address] Referring PhysicianNeurology02/01/25Team MemberRelationshipSpecialtyStart DateEnd Date Pete Alcala MD [address] [place] [address] PCP - [facility] Medicine12/17/23 Pete Alcala MD [address] [place] [address] PCP - [facility]12/18/24 Sally Pinzon DO [address] [place] [address] Referring PhysicianNeurology02/01/25Team MemberRelationshipSpecialtyStart DateEnd Date Pete Alcala MD [address] [place] [address] PCP - Generalmily Medicine12/17/23 Pete Alcala MD [address] [place] [address] PCP - [facility]12/18/24 Sally Pinzon DO [address] [place] [phone] Referring PhysicianNeurology02/01/25 Team Status: Inactive Member Role Status Dates Pete Alcala MD Primary Care Provider Active S tart: July 22, 2025 End: July 22, 2025Kirsty Toth APRN-FNP-CAttending ProviderActive Start: July 22, 2025 End: July 22, 2025Team MemberRelationshipSpecialtyStart DateEnd Date Pete Alcala MD PCP - GeneralFamily Medicine12/17/23 Pete Alcala MD [address] [place] [address] PCP - [facility]12/18/24 Sally Pinzon DO [address] [place], [place] [phone] Referring PhysicianNeurology02/01/25Team MemberRelationshipSpecialtyStart DateEnd Date Pete Alcala MD PCP - GeneralFamily Medicine12/17/23 Pete Alcala MD [address] [place] [address] PCP - [facility]12/18/24 Sally Pinzon DO [address] [place] [phone] Referring PhysicianNeurology02/01/25 Team Status: Active Member Role/Relationship Status Dates Pete Alcala MD Primary Care Provider Active Team Status: Inactive Member Role/Relationship Status Dates Pete Alcala MD Primary Care Provider Active S tart: July 22, 2025 End: July 22, 2025abhi Toth , [id number] ProviderActive Start: July 22, 2025 End: July 22, 2025 Team Status: Inactive Member Role/Relationship Status Dates Pete Alcala MD Primary Care Provider Active S tart: September 13, 2025 End: September 13, 2025Mar YAAKOV Alcalattending ProviderActiveStart: September 13, 2025 End: September 13, 2025 Reason for Visit (unrecogniz ed section and content) ReasonCommentsPainReasonCommentsPainReasonCommentsFollow-[id number] DateCommentsMed Fguuqr3412/23/2024ReasonCommentsFollow-upUrgent care f/uReason CommentsMemory LossReasonOnset DateCommentsMed Rrktop1904/26/2025ReasonComments Follow-up6M Goals (unrecognized section and content) Goals may be documented in a n alternate sectionGoals may be documented in an alternate sectionGoals may be documented in an alternate section FOR RECORDS PERTAINING TO PATIENTS [...] BE BASED ON THE PRIMARY CLINICAL RECORDS. [employer] provides no warranty or guarantee of the accuracy or completeness of information in this document.
--- NOTE | 2025-09-16 11:50 | MM_ITS ---
Patient Name: DANTE GONZALEZ MR#: [id number] : 1950 Exam Date: 09/16/2025 Ordering Doctor: DR ABBEY ALCALA . RADIOLOGY REPORT PROCEDURE: MM TOMOSYNTHESIS SCREENING BI COMPARISON: MM TOMOSYNTHESIS SCREENING BI, 09/14/2024. MM TOMOSYNTHESIS SCREENING BI, 09/13/2023. MG MAMM SCREEN 3D ZAYRA CAD, 09/10/2022. MG MAMM ZAYRA SCRN W CAD DIG, 06/11/2011. INDICATIONS: Screening Calculator Name NCI Breast Cancer Risk Assessment Tool 5 Year Breast Cancer Risk 1.80% Lifetime Breast Cancer Risk 4.40% Personal Breast Cancer No Personal Ovarian Cancer No Treatments None Family Cancers Mother with non hodgekins lymphoma cancer at age ~80. LOCATION: [facility] BREAST COMPOSITION: The breasts are heterogeneously dense, which may obscure small masses. FINDINGS: RIGHT BREAST: No significant suspicious finding. Benign-appearing calcifications are noted with focal asymmetries similar to the prior exam. LEFT BREAST: No significant suspicious finding. Benign-appearing calcifications are noted with focal asymmetries similar to the prior exam. DIAGNOSTIC CATEGORY 2--BENIGN FINDING. NO CHANGE FROM COMPARISON. RECOMMENDATIONS: ROUTINE MAMMOGRAM AND CLINICAL EVALUATION IN 12 MONTHS. Dictated by: Ke Zuniga MD on 09/16/2025 at 15:05 Approved by: Ke Zuniga MD on 09/16/2025 at 15:06
== END 2025-09-16 11:15 | disposition home or self-care (01) ==
LOC: MAMMO 11:17
PROVIDERS: PCP Family Medicine; Visit Provider Family Medicine
DX: Z12.31 Encounter for screening mammogram for malignant neoplasm of breast (principal); Z80.7 Family history of other malignant neoplasms of lymphoid, hematopoietic and related tissues
CPT/HCPCS: 77063; 77067